=== PATIENT | female | born 1990 | race Caucasian/White ===

== ENCOUNTER 2023-02-05 08:26 | Outpatient (CLI) | payer BC, SELFPAY | END 2023-02-05 08:27 | disposition home or self-care (01) | PROVIDERS: PCP Naturopath; Visit Provider Naturopath | DX: I10 Essential (primary) hypertension (principal); R79.82 Elevated C-reactive protein (CRP); N94.819 Vulvodynia, unspecified | CPT/HCPCS: 36415; 99001 ==

== ENCOUNTER 2024-03-25 09:30 | Outpatient (RCR) | payer BC, SELFPAY | END 2024-07-21 16:21 | disposition home or self-care (01) | PROVIDERS: Visit Provider Advanced Practice Midwife | DX: R10.2 Pelvic and perineal pain (principal); N39.41 Urge incontinence; N94.2 Vaginismus; Z51.89 Encounter for other specified aftercare | CPT/HCPCS: 97110; 97112; 97140; 97162; 97164; 97530; 97535 ==

== ENCOUNTER 2025-04-14 16:16 | Inpatient (IN) | payer BC, SELFPAY ==
--- OUTSIDE RECORDS SUMMARY | 2025-03-02 13:30 | XMS_ITS | Encounter Summary ---
Author Organization [facility] Address [address] [place] [address] Care Team Providers Care Auriculotherapist Name Role Phone Emilia Schofield APRN, CNP Primary Care Provider + Reason for Visit * Reason Comments Routine Visit Encounter Details Date Type Department Care Team ([facility] st Contact Info) Description 03/02/2025 1:30 PM CDT Routine [facility]-FOOTWEAR MACHINERY INSTRUCTOR [address] [phone] [place] [address] [phone] Routine Visit Social History Tobacco Use Types Packs/Day Years Used Date Smoking Tobacco: Never Smokeless Tobacco: Never Alcohol Use Standard Drinks/Week Comments Not Currently 0 (1 standard drink = 0.6 oz pur e alcohol) PHQ-2 Answer Date Recorded PHQ-2 Score 0 01/12/2020 Depression Answer Date Recor ded Last EPDS Total Score 3 02/02/2025 Last EPDS Self Harm Result Not on file 02/02 Estimated Date of Delivery Comme nts Yes 04/15/2025 Based on last me nstrual period of 07/09/2024 (Exact Date) Sex and Gender Information Value Date Recorded Sex Assigned at Not on file Legal Sex Female 12:12 PM SKEWER UP Gender Identity Not on file Sexual Orientation Not on file 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 Thank you for choosing us for your care. We recommend you review the following information in Your Guide to : Testing - Group B Strep Testing We recommend you review the following information in Preparing for Childbirth: Pain and Comfort Labor and Medical Interventions - Pain Mediations If you are interested in learning more about circumcision, click on the following link: Circumcision - Making the Decision: https://DreamFunded/70445.pdf Vaccinations help keep your baby healthy and protects everyone around them from preventable diseases. To learn more about vaccines and how you can help your child develop strong immunities, click on the links below: Why vaccines (and vaccine schedules) are important for kids [facility] Blog Questions Parents Ask About Vaccinations for Babies (immunize.org) Studies show education received during can increase overall feeding success. If is part of your plan, you can talk to a certified career consultant through our partners at [employer] (see QR code below). You can also take a class offered through your community. Have you selected a health care provider for your baby? Find Pediatric care near you by scanning the QR code below to see locations. Our Clinician Finder Team is also available to assist you by calling [phone]. Or click on this link: Our pediatricians [facility] & Emy Vincent Drinking any amount of alcohol during is not safe. Watch this short video by Proof [place]: Proof: Some Think Drinking During is OK. It???s Not. - Ximena video Marijuana use is never recommended while or . Learn why here: https://DreamFunded/05326.pdf is a time of transition. If you feel overwhelmed, anxious or depressed, see the followingresources: Emotional Distress During and After : https://DreamFunded/40537.pdf Resources & Support for New & Expecting Parents: https://DreamFunded/59723.pdf The 3 books provided throughout are also available digitally. Here are links to each book: Your Guide to : https://userBitGym/EqkxfaGzanvjir-Vsfi-Rtqoy-ur-m-Hynbzlr- Preparing for Childbirth: https://userBitGym/MshcdwRzjgrord-Ddz-Wbzr-of-Motherhood Taking Care of You and Your : https://userBitGym/MsjwywVrunsjda-P-Xpl-Beginning [place] for our free sterling called ???myHealthyPregnancy?? powered by [employer]. The sterling offers many quick articles and videos on , labor, , , and newborncare. Find instructions here: Or click on this link: myHealthyPregnancy tracker sterling [facility] documented in this encounter Progress Notes * Luiza Chester MD - 03/02/2025 1:30 PM CDT [facility] OBSTETRICS & GYNECOLOGY RETURN OB VISIT SUBJECTIVE Dianne Mcintyre is a 34 y.o. at 33w5d presenting for follow up care. Striper Spray Gun not needed for this visit. INTERVAL UPDATES Doing well today! Feeling good movement. Denies contractions, vaginal bleeding, or leaking of fluid. PROBLEM LIST - Chronic Hypertension - Hepatitis B NONimmune OB History Para Term AB Living 1 0 0 0 0 0 SAB IAB Ectopic Multiple Live Births 0 0 0 0 0 # Outcome Date GA Lbr Georgi/2nd Weight Sex Type Anes PTL Lv 1 Current OBJECTIVE Vitals: 03/02/25 1333 BP: 127/79 Pulse: 80 PHYSICAL EXAM General: Healthy, alert, no distress. Abdomen: Gravid, nontender. See Flowsheet for FH and HR. ASSESSMENT & PLAN Dianne is a 34 y.o. at 33w5d by LMP c/w 8wk US (VIRAL 04/15/25) presenting for follow up care. #. Care: - OB labs reviewed > A+, Rubella immune, HIV neg, RPR neg, Hep B neg/NONimmune, Hep C neg > Glucola 104, Hgb 12.9, Plts 241, RPR neg > GBS at 36wks > Rh positive, Rhogam not indicated - Screening: NIPS low risk, msAFP low risk - Anatomy Ultrasound: L2 6/10 placenta posterior, normal anatomy (spine suboptimal) - Vaccines: [declined]COVID, [declined]Influenza, [02/02]Tdap, [03/02]RSV - Continue multivitamin - Continue Aspirin for preeclampsia prevention - Pre- BMI 20.8, recommend 25-35lbs of weight gain. TWG 43 lb 9.6 oz (19.8 kg) - Preferences > Mode of Delivery: anticipate VD > Feeding: , has pump already > Pediatrics: [facility] > Contraception: condoms and considering other options #. Chronic Hypertension: - Not currently on medications. BPs have been within goal thus far. - Baseline HELLP labs normal, P:C 0.07. - Has blood pressure cuff at home, reviewed how to check BP, warning signs, and when to call. - Growth ultrasounds > 01/23 EFW 1157g (27%), AC 23%, anatomy cleared > Next at 34wks, 03/06 - testing not indicated if continues to be well controlled without medication. - Delivery recommended at 39 weeks if normotensive in third trimester, 38 weeks if BP well controlled with medication, 37 weeks if difficult to control hypertension, unless indication for earlier delivery arises. #. Pelvic Pain: - Discussed supportive measures like Tylenol, heat/ice, warm baths, support belt - Reviewed physical therapy referral is an option if symptoms persist or get worse #. 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 - Pelvic Floor PT referral provided previously. #. Hepatitis B NONimmune: - S/p repeat vaccination. Dose #1 11/05, dose #2 01/05. #. Follow Up: - Return to clinic in 2 weeks - Next Visit: 03/[address] Luiz Chester MD Obstetrics & Gynecology 03/02/2025 1:48 PM documented in this encounter Plan of Treatment Upcoming Encounters Date Type Department Care Team (Late st Contact Info) Description 04/15/2025 1:00 PM CDT Appointment [facility]-FOOTWEAR MACHINERY INSTRUCTOR [address] [facility], [facility] [address] [place] [address] [place] [address] [phone] documented as of this encounter Visit Diagnoses Diagnosis High risk , antepartum- Primary Chronic hypertension affecting documented in this encounter Care Teams Auriculotherapist Relationship Specialty Start Date End Date Emilia Schofield, HULLER OPERATOR, TAPROOM ATTENDANT [address] [place] [phone] PCP - General Nurse Practitioner 07/10/17 documented as of this encounter
--- OUTSIDE RECORDS SUMMARY | 2025-03-06 11:15 | XMS_ITS | Encounter Summary ---
Author Organization [facility] Address [address] [place] [address] Care Team Providers Care Discotheque Dancer Name Role Phone Emilia Schofield APRN FISHER TRAWL LINE Primary Care Provider + Reason for Visit * Procedure/Equipment (Routine) - Incomplete Specialty Diagnoses / Procedures Referred By Mariaelena cooper Referred To Contact Diagnoses Chronic hypertension affecting Procedures [facility] OB Follow-Up Growth Brie Hart MD [address] [place] [address] Phone: tel: fax: Referral ID Status Reason Start Date Expiration Date V isits Requested Visits Authorized [id number] Incomplete 01/23/2025 04/24/2026 1 1 Encounter Details Date Type Department Care Team (Late st Contact Info) Description 03/06/2025 11:15 AM CDT Ancillary Procedure [facility] [address] [place] [address], [facility] [address] [place] [phone] Brie Hart MD [address] [place] [address] Chronic hypertension affecting Social History Tobacco Use Types Packs/Day Years [...] on file Legal Sex Female 12:12 PM TURRET PUNCH OPERATOR Gender Identity Not on file Sexual Orientation Not on file 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 Not on file Not on file documented as of this encounter Plan of Treatment Upcoming Encounters Date Type Department Care Team (Late st Contact Info) Description 04/15/2025 1:00 PM CDT Appointment [facility]-DRYING SUPERVISOR [address] [facility], [address] [place] [phone] [place] [address] [place] [address] documented as of this encounter Procedures Procedure Name Priority Date/Time Associated Diagnosis Comments [facility] US OB FOLLOW-UP GROWTH Routine 03/06/2025 11:48 AM CDT Chronic hypertension affecting documented in this encounter Results * [facility] US OB Follow-Up Growth (03/06/2025 11:48 AM CDT) Anatomical Region Laterality Modality Pelvis Ultrasound Study GA Study Date Study VIRAL Working VIRAL (Source) 32w4d 03/06/2025 04/27/2025 04/15/2025 (Last Menstrua l Period) Fetus 1 Measurements Value GA (days) GA by US Calc 228 days 228 FHR 130 bpm BPD 8.35 cm 236 OFD HC 29.9 cm 232 AC 29.18 cm 232 FL 6.28 cm 228 HL 5.48 cm CI 80.21 % FL/BPD 75.21 % FL/AC 21.52 % HC/AC 1.02 HrtC/TC Heart Circ Thoracic Circ UAR - PSV UAR - S/D Ratio UAR - RI UAR - PI MCA - PSV MCA - S/D Ratio MCA - PI CPR Lateral Ventricle .71 cm CER Cisterna Magna Max Vertical Pocket SRINIVASAN 12.16 cm SRINIVASAN Q1 5.99 cm SRINIVASAN Q2 2.5 cm SRINIVASAN Q3 0 cm SRINIVASAN Q4 3.67 cm Foot Tib Fib Radius Ulna Clav Scapula Mitral Valve Tricuspid Valve Pulmonary Valve Aortic Valve EFW: Hadlock 1984 (BPD, HC, AC, FL) 2100 g Impressions 03/06/2025 12:39 PM CDT S: Single intrauterine at 34w2d gestation. INDICATIONS: Low Risk NIPS (XX) Intermittently elevated blood pressure w/o HTN Dx (cHTN vs White Coat HTN) --Biometric measures indicate appropriate interval growth. The EFW is at the 15th percentile for gestational age. The AC is at the 23rd percentile for gestational age. --Amniotic fluid volume is normal, with an SRINIVASAN of 12.2 cm. --Limited anatomic assessment remains normal --No evidence of placenta previa. --An incidental BPP is reassuring with a score of 8 of 8. --Cephalic presentation. MFM Consult: BP in our clinic today was mildly elevated: 137/95, 124/94 and 128/94. Patient denies sx of preE. She has no edema on exam. She brings in a very complete log of her home BP's over the past few weeks, which range 110's to 120's / 80's. Although her diastolics have been slowly increasing to mid- to-high 80's over the past 2 wks, they have consistently remained < 90. Recommendations: -- I reviewed signs and symptoms of preE with Dianne and her . --I ordered preE labs and UPCR. -- I advised Dianne to continue to take her BP at home tid and to report if systolic is repeatedly > 140 or diastolic repeatedly > 90. If this is the case, suggested starting labetalol 100 mg bid, since the dx is more likely chronic HTN than preE in this setting (unless labs or UPCR are abnormal). -- If antihypertensive started, begin weekly to twice weekly testing, repeat growth US in 3 wks, and deliver at 38 wks (37 wks if superimposed preE or other concerns) -- If preE labs are normal and BP remains < 140/90, no need for testing or growth US. However, I suggest delivery in the 39th week in this setting due to increased concern for development of preE The US findings and above recommendations were discussed with Dianne and her . All their questions were answered. Thank you for allowing us to participate in the care of your patient. Total time spent in counseling patient, care coordination, review of chart, review of prior imaging studies, placing orders and documentation: 30 mins Amalia Izquierdo MD [facility] Narrative 03/06/2025 12:39 PM CDT Table formatting from the original result was not included. Images from the original result were not included. [facility] [address] [place] [address], [address] [place] [address] Dept Dept Patient Name: Dianne Mcintyre Referred By: Attending: MD Amalia Crawford MD Patient Title Camera Operator: Alannah Washington RDMS , Age: 208/10/1990, 34 y.o. GA Prior to Exam: 34w2d LMP: Patient's last menstrual period was 07/09/2024 (exact date). GA by Today's US: 32w4d Pregnancies: GA VIRAL: 34w2d Last Menstrual Period Pre- BMI: 20.80 VIRAL: 04/15/2025 Hx/Indications: Low Risk NIPS (XX) Neg Carrier Screening Elevated blood pressure without HTN Dx (cHTN vs White Coat HTN) Date of Exam: 03/06/2025 Evaluation Gestation Type escoto Cardiac Activity present Motion normal Presentation cephalic Amniotic Fluid normal Placenta Location posterior Placenta Appearance grossly normal BPP Breathing 2 Tone 2 Movement 2 Amniotic Fluid 2 Total Score 8 Measurement Value Rank GA FHR 130 bpm * BPD 8.35 cm 29% 33w5d HC 29.9 cm 3% 33w1d AC 29.18 cm 23% 33w1d FL 6.28 cm 7% 32w4d HL 5.48 cm 10% CI 80.21 % FL/BPD 75.21 % FL/AC 21.52 % HC/AC 1.02 Lateral Ventricle 0.71 cm SRINIVASAN 12.16 cm 5 - 50% SRINIVASAN Q1 5.99 cm SRINIVASAN Q2 2.5 cm SRINIVASAN Q3 0 cm SRINIVASAN Q4 3.67 cm Weight: 2,100 g (4 lb 10.1 oz), 15% Projected EFW at 39w:2,957g (6 lb 8.3 oz) Head Abdomen Cranium appears normal Stomach appears normal Midline Falx appears normal Heart Lateral Ventricle appears normal Heart Rhythm regular Cavum Septi Pellucidi visualized Situs normal 4 Chamber View appears normal LVOT/AO appears normal RVOT/PA appears normal Urinary Tract Right Kidney appears normal Left Kidney appears normal Bladder appears normal Maternal Evaluation Cervix Normal Uterus Normal Cervical Length Approach N/A Right Ovary Normal With Fundal Pressure (cm) N/A Left Ovary Normal Funneling N/A Right Adnexa Normal Cul-de-sac No fluid seen Left Adnexa Normal Impression us Brie Hart MD [facility] Final Result documented in this encounter Visit Diagnoses Diagnosis Chronic hypertension affecting documented in this encounter Care Teams Discotheque Dancer Relationship Specialty Start Date End Date Emilia Schofield, BANDING MACHINE OPERATOR, FISHER TRAWL LINE [address] [place] [address] PCP - General Nurse Practitioner 07/10/17 documented as of this encounter
--- OUTSIDE RECORDS SUMMARY | 2025-03-06 11:45 | XMS_ITS | Encounter Summary ---
Author Organization [facility] Address [address] [place] [address] Care Team Providers Care Master Glazier Name Role Phone Emilia Schofield APRN, RESTRIKE HAMMER OPERATOR Primary Care Provider + Encounter Details Date Type Department Care Team (Late st Contact Info) Description 03/06/2025 11:45 AM CDT Procedure Visit [facility] [address] [facility], [address] [place] [address] Amalia Izquierdo MD [address] [place] [address] Social History Tobacco Use Types Packs/Day Years [...] on file Legal Sex Female 12:12 PM GLASS INSERTER Gender Identity Not on file Sexual Orientation Not on file 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 IMPRESSIONS: Single intrauterine at 34w2d gestation. INDICATIONS: Low [...] score of 8 of 8. --Cephalic presentation. [facility] Consult: BP in our clinic today was mildly elevated: 137/95, 124/94 and 128/94. Patient denies sx of preE. She has no edema on exam. She brings in a very complete log of her home BP's over the past few weeks, which range 110's to 120's / 80's. Although her diastolics have been slowly increasing to mid- to- high 80's over the past 2 wks, they [...] is the case, suggested starting labetalol 100 mgbid, since the dx is more likely chronic [...] setting due to increased concern for development ofpreE The US findings and above recommendations were discussed with Dianne and her . All their questions were answered. Thank you for allowing us to participate in the care of your patient. Total time spent in counseling patient, care coordination, review of chart, review of prior imagingstudies, placing orders and documentation: 30 mins Amalia Izquierdo MD [facility] documented in this encounter Plan of Treatment Upcoming Encounters Date Type Department Care Team (Late st Contact Info) Description 04/15/2025 1:00 PM CDT Appointment [facility]-EVALUATION ADVISOR [address] [facility], [facility] [address] [place] [phone] [place] [address] [place] [address] documented as of this encounter Visit Diagnoses Diagnosis Chronic hypertension affecting - Primary documented in this encounter Care Teams Master Glazier Relationship Specialty Start Date End Date Emilia Schofield, MANUFACTURING WORKER, RESTRIKE HAMMER OPERATOR [address] [place] [phone] PCP - General Nurse Practitioner 07/10/17 documented as of this encounter
--- OUTSIDE RECORDS SUMMARY | 2025-03-06 13:30 | XMS_ITS | Encounter Summary ---
Author Organization [facility] Address [address] [place] [address] Care Team Providers Care Screen Printing Equipment Setter Name Role Phone Emilia Schofield APRN, CNP Primary Care Provider + Encounter Details Date Type Department Care Team (Late st Contact Info) Description 03/06/2025 1:30 PM CDT [facility] [address] [facility], [facility] [address] [place] [address] Chronic hypertension in Social History Tobacco Use Types Packs/Day Years [...] on file Legal Sex Female 12:12 PM ACADEMIC AFFAIRS COORDINATOR Gender Identity Not on file Sexual Orientation Not on file 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 Not on file Not on file documented as of this encounter Plan of Treatment Upcoming Encounters Date Type Department Care Team (Late st Contact Info) Description 04/15/2025 1:00 PM CDT Appointment [facility]-TREKKING GUIDE [address] [facility], [address] [place] [phone] [place] [address] [address] [place] [address] documented as of this encounter Procedures Procedure Name Priority Date/Time Associated Diagnosis Comments CREATININE / GFR Routine 03/06/2025 1:32 PM CDT Chronic hypertension in PLATELETS Routine 03/06/2025 1:32 PM CDT Chronic hypertension in TP/CREA RATIO, URINE Routine 03/06/2025 1:32 PM CDT Chronic hypertension in ALT (SGPT) Routine 03/06/2025 1:32 PM CDT Chronic hypertension in AST Routine 03/06/2025 1:32 PM CDT Chronic hypertension in documented in this encounter Results * TP/Crea Ratio, Urine (03/06/2025 1:32 PM CDT) TP/Creat Ratio, Urine Random 0.09 0.00 - 0.20 03/06/2025 9:10 PM T [facility] Total Protein, Urine, Random 4 0 - 14 mg/dL 03/06/2025 9:10 PM T [facility] Creatinine, Urine, Random 45 >20 mg/dL mg/dL 03/06/2025 9:10 PM [facility] Urine Non-blood Collection / Unknown 03/06/2025 1:32 PM CDT 03/06/2025 1:32 PM CDT [facility] - 03/06/2025 9:10 PM CDT Low urine creatinine values coupled with low urine protein values can artifactually increase the urine protein/creatinine results. Correlate results of ratio with creatinine results. us Amalia Izquierdo MD LAB_1 Final Resul t Performing Organization Address City/[facility] Co de Phone Number [facility] CLIA: [id number] [facility] [address] * Platelets (03/06/2025 1:32 PM CDT) Platelets 232 150 - 450 x10(9)/L 03/06/2025 5:49 PM CDT [facility] Blood Venipuncture / Unknown 03/06/2025 1:32 PM CDT 03/06/2025 1:32 PM CDT Amalia Izquierdo MD LAB_1 Final Resul t Performing Organization Address [facility] de Phone Number [facility] CLIA: [id number] [place] [address] * Creatinine / GFR (03/06/2025 1:32 PM CDT) Creatinine 0.59 0.55 - 1.02 mg/dL 03/06/2025 8:15 PM CDT [facility] GFR, Estimated >60 >60 mL/min/1.7 3m2 03/06/2025 8:15 PM CDT [facility] Blood Venipuncture / Unknown 03/06/2025 1:32 PM CDT 03/06/2025 1:32 PM CDT Amalia Izquierdo MD LAB_1 Final Resul t Performing Organization Address [facility] Co de Phone Number [facility] CLIA: [id number] [address] [place] [address] * ALT (SGPT) (03/06/2025 1:32 PM CDT) ALT (SGPT) 11 0 - 55 U/L 03/06/2025 8:15 PM CDT [facility] Blood Venipuncture / Unknown 03/06/2025 1:32 PM CDT 03/06/2025 1:32 PM CDT us Amalia Izquierdo MD LAB_1 Final Resul t Performing Organization Address City/[facility] Co de Phone Number [facility] CLIA: [id number] [address] [place] [address] * AST (03/06/2025 1:32 PM CDT) AST (SGOT) 19 16 - 46 U/L 03/06/2025 8:15 PM CDT [facility] Blood Venipuncture / Unknown 03/06/2025 1:32 PM CDT 03/06/2025 1:32 PM CDT us Amalia Izquierdo MD LAB_1 Final Resul t Performing Organization Address [facility] de Phone Number [facility] CLIA: [id number] [address] [place] [address] documented in this encounter Visit Diagnoses Diagnosis Chronic hypertension in Benign essential hypertension complicating , childbirth, and the puerperium, unspecified as to episode of care documented in this encounter Care Teams Screen Printing Equipment Setter Relationship Specialty Start Date End Date Emilia Schofield, PERCUSSION INSTRUMENT TUNER, LOSS PREVENTION RESEARCH ENGINEER [address] [place] [phone] PCP - General Nurse Practitioner 07/10/17 documented as of this encounter
--- OUTSIDE RECORDS SUMMARY | 2025-03-18 15:30 | XMS_ITS | Encounter Summary ---
Author Organization [facility] Address [address] [place] [address] Care Team Providers Care Wildlife And Game Protector Name Role Phone Emilia Schofield APRN, MATERNAL CHILD NURSE Primary Care Provider + Reason for Referral * Therapies (Routine) - New Request Specialty Diagnoses / Procedures Referred By Mariaelena cooper Referred To Contact Diagnoses High risk , [place] [address] [address] [address] Phone: tel: fax: Referral ID Status Reason Start Date Expiration Date V isits Requested Visits Authorized [id number] New Request 03/17/2025 03/17/2026 1 1 Scheduling Instructions Your clinician has recommended an appointment with Physical Therapy and Rehabilitation Services. You can quickly schedule your appointment by signing in to your online account at [email or web address] or through the text message you may have received. You can also make an appointment by calling [phone]. We suggest you call your health insurance company about your coverage and benefits for this appointment. Question Answer Appointment Urgency? Non-Urgent Requested Services Evaluate and treat Reason for Visit Ortho /Post- - 3-6 weeks after delivery May use saline for irrigation or cleansing Yes dexamethasone use Yes May check glucose per protocol (see policy link below) or if patient has symptoms? 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 Thank you for choosing us for your care. We recommend you review the following information in Preparing for Childbirth: Frequently Asked Questions About Labor and Pack your books in your labor bag and bring to the hospital at your time of delivery. Your care team may refer to helpful topics during your hospital stay. If you are interested in learning more about circumcision, click on the following link: Circumcision - Making the Decision: https://SIVI/59130.pdf Vitamin K Social media posts offer a range of opinions on giving vitamin K to newborns. It???s a fact that babies have very little vitamin K in their bodies at which puts them at risk for bleeding. Giving a vitamin K injection after has been the standard of care and [place] Academy [employer] Pediatrics(AAP) recommendation since 1961. One shot will help protect against vitamin K deficiency bleeding (VKDB) which can lead to serious internal bleeding, brain damage or even . Learn more about the importance of vitamin K to protect your baby. Vaccinations help keep your baby healthy and protects everyone around them from preventable diseases. To learn more about vaccines and how you can help your child develop strong immunities, click on the links below: Why vaccines (and vaccine schedules) are important for kids [employer] Blog Questions Parents Ask About Vaccinations for Babies (immunize.org) During your appointment today you received a referral to Physical Therapy (PT) for a visit. PT helps restore pelvic floor function and healing during your recovery. Learn more about what???s available to you here: Physical Therapy During and After RSV is a common viral infection that can be very serious for babies. Learn how you can protect yournewborn: https://SIVI/69146.pdf Have you selected a health care provider for your baby? Find Pediatric care near you by scanning the QR code below to see locations. Our Clinician Finder Team is also available to assist you by calling [phone]. Or click on this link: Our pediatricians Naveen & Simon Vincent Drinking any amount of alcohol during is not safe. Watch this short video by Proof [place]: Proof: Some Think Drinking During is OK. It???s Not. - Ximena video Marijuana use is never recommended while or . Learn why here: https://SIVI/81214.pdf is a time of transition. If you feel overwhelmed, anxious or depressed, see the followingresources: Emotional Distress During and After : https://SIVI/23485.pdf Resources & Support for New & Expecting Parents: https://SIVI/13920.pdf The 3 books provided throughout are also available digitally. Here are links to each book: Your Guide to : https://userPeople to Remember.Neuro[employer] Bioscience.TravelerCar/QprqntBjylgmds-Rtsi-Vnium-fl-z-Csxvnqu- Preparing for Childbirth: https://userPeople to Remember.Neuro[employer]ience.TravelerCar/QvgrvqKxlozdiz-Vhb-Ritr-of-Motherhood Taking Care of You and Your : https://userSentence Lab/NgqboyThxbwiay-Q-Qhb-Beginning We encourage you to register for our free sterling called ???myHealthyPregnancy?? powered by [employer]. You will find many topics and videos on , labor and , , and care. Find instructions here: Or click on this link: myHealthyPregnancy tracker sterling [employer] documented in this encounter Progress Notes * Vonnie Dee DO - 03/18/2025 3:30 PM CDT [facility] CC: Follow-up care S: Dianne Mcintyre is feeling well today. Her BP is running 110-120/80's. She denies loss of fluid, changes in vaginal discharge or vaginal bleeding. Reports good movement. She has been having no regular contractions. Denies headache, vision changes, chest pain, shortness of breath. No hematuria, dysuria or other. No constipation or diarrhea. 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 Bilateral temporomandibular joint pain 01/15/2018 O: Filed Vitals: 03/18/25 1530 BP: (!) 139/91 Pulse: 92 Weight: 173 lb (78.5 kg) Gen: alert, oriented, NAD See OB flowsheet. SVE: declined Bedside US confirms vertex position A/P: 34 y.o. at 36w0d by LMP presenting for follow-up care. Care: - OB labs reviewed: A, Rubella immune, Heb B Ag non-reactive, hep B non-immune, HIV negative, RPR negative - Genetics: NIPS and AFP low risk - Anatomy ultrasound: normal level 2 US after recheck - Rh positive, Rhogam not indicated - GCT 104 at 28 weeks along with hgb 12.9, RPR - 03/18/25 flu, Tdap 02/02 - declined Covid vaccine - RSV 03/02/25 - GBS today - Feed: breast, has pump - Contraception: condoms and considering other [facility] - continue taking vitamins #. Chronic Hypertension: - Not currently on medications. BP starting to increase at home (still normal) but mild elevation in clinic today again. Did review we may need t change plan to earlier than 39 weeks based on what her BP does in the next few weeks. Instructed to bring new BP cuff to clinic next week - Baseline HELLP labs normal, P:C 0.07. - Has blood pressure cuff at home, reviewed how to check BP, warning signs, and when to call. - Growth ultrasounds > 01/23 EFW 1157g (27%), AC 23%, anatomy cleared > 03/06 EFW 2100g (15%), AC 23%, projected EFW at 39w is 2957g - testing not indicated if continues to [...] NONimmune: - S/p repeat vaccination. Dose #1 5/14, dose #2 01/05. Follow-up in clinic early next week with BP cuff Vonnie Dee DO 03/18/2025 4:25 PM documented in this encounter Plan of Treatment Upcoming Encounters Date Type Department Care Team (Late st Contact Info) Description 04/15/2025 1:00 PM CDT Appointment [facility] BUSINESS BANKING OFFICER [address] [facility], [address] [place] [phone] [place] [address] [place] [address] Scheduled Referrals Name Type Priority Associated Diagnoses Orde r Schedule Physical Therapy - Referral Routine High risk , antepartum Ordered: 03/17/2025 documented as of this encounter Procedures Procedure Name Priority Date/Time Associated Diagnosis Comments GROUP B STREP SCREEN (OB PTS) Routine 03/18/2025 4:22 PM CDT High risk , antepartum OB CLINIC ULTRASOUND LIMITED Routine 03/18/2025 Evaluate position using ultrasound documented in this encounter Results * Group B Strep Screen (OB Pts) (03/18/2025 4:22 PM CDT) Group B Strep Screen No Group B Streptococcus Isolated 03/21/2025 8:17 AM CDT [facility] Swab (Source Required) PERINEAL SWAB / Unknown Non-blood Collection / Unknown 03/18/2025 4:22 PM CDT 03/18/2025 4:31 PM CDT us Vonnie Dee DO LAB_1 Final Resu lt [facility] CLIA: [id number] [address] [place] [address], [facility] * OB CLINIC ULTRASOUND LIMITED (03/18/2025) Anatomical Region Laterality Modality Other Narrative 03/18/2025 Bedside US confirms vertex position us Vonnie Dee DO PN CLINIC US ORDERABLES Fi nal Result documented in this encounter Visit Diagnoses Diagnosis High risk , antepartum- Primary Chronic hypertension affecting Vulvodynia Vulvodynia, unspecified Nonimmune to hepatitis B virus Encounter for immunization Need for other specified prophylactic vaccination against single bacterial disease Evaluate position using ultrasound Encounter for routine screening for malformation using ultrasonics documented in this encounter Care Teams Wildlife And Game Protector Relationship Specialty Start Date End Date Emilia Schofield, WIRE MILL ROVER, MATERNAL CHILD NURSE [address] [place] [phone] PCP - General Nurse Practitioner 07/10/17 documented as of this encounter
--- OUTSIDE RECORDS SUMMARY | 2025-03-25 09:00 | XMS_ITS | Encounter Summary ---
Author Organization [facility] Address [address] [place] [address] Care Team Providers Care Ceo Ziff Davis Name Role Phone Emilia Schofield APRN, LAURA Primary Care Provider + Reason for Visit * Reason Comments Routine Visit Encounter Details Date Type Department Care Team ([facility] st Contact Info) Description 03/25/2025 9:00 AM CDT Routine [facility]-GLOVE MACHINE OPERATOR [address] [phone] [place] [address] [phone] Routine Visit Social History Tobacco Use Types [...] on file 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 Gender Identity Not on file Sexual Orientation Not on file 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 Not on file Not on file documented as of this encounter Last Filed Vital Signs Vital Sign Reading Time Taken Comments Blood Pressure 122/90 03/25/2025 9:03 AM CDT Pulse 88 03/25/2025 9:03 AM CDT Temperature - - Respiratory Rate - - Oxygen Saturation - - Inhaled Oxygen Concentration - - Weight 79.7 kg (175 lb 9.6 oz) 03/25/2025 9:03 A M CDT Height - - Body Mass Index 29.22 09/09/2024 8:34 AM CDT documented in this encounter Patient Instructions * Patient Instructions* Caleb Dukes MD - 03/25/2025 9:00 AM CDT Images from the original note were [...] following link: Circumcision - Making the Decision: https://Trips n Salsa/20798.pdf Vitamin K Social media posts offer a range of opinions on giving vitamin K to newborns. It???s a fact that babies have very little vitamin K in their bodies at which puts them at risk for bleeding. Giving a vitamin K injection after has been the standard of care and [place] Academy of Pediatrics(AAP) recommendation since 1961. One [...] (and vaccine schedules) are important for kids [employer] Blog Questions Parents Ask About Vaccinations for [...] babies. Learn how you can protect yournewborn: https://Trips n Salsa/61213.pdf Have you selected a health care provider for your baby? Find Pediatric care near you by scanning the QR code below to see locations. Our Clinician Finder Team is also available to assist you by calling [phone]. Or click on this link: Our pediatricians N[facility]en & [facility] Vincent Drinking any amount of alcohol during is not safe. Watch this short video by Proof [place]: Proof: Some Think Drinking During is OK. It???s Not. - Ximena video Marijuana use is never recommended while or . Learn why here: https://Trips n Salsa/00905.pdf is a time of transition. If you feel overwhelmed, anxious or depressed, see the followingresources: Emotional Distress During and After : https://Trips n Salsa/50692.pdf Resources & Support for New & Expecting Parents: https://Trips n Salsa/04579.pdf The 3 books provided throughout are also available digitally. Here are links to each book: Your Guide to : https://user-Rubikloud.FlockOfBirds.TappnGo/TxbicoBhwkobvx-Uwmv-Tyzcp-si-f-Sndxvub- Preparing for Childbirth: https://user-Rubikloud.FlockOfBirds.bz/NihymcJwalqlxn-Yel-Kplw-of-Motherhood Taking Care of You and Your : https://user-Rubikloud.FlockOfBirds.TappnGo/SqaskgPwbwvvpe-L-Bug-Beginning We encourage you to register for our free sterling called ???myHealthyPregnancy?? powered by aDealio. You will find many topics and videos on , labor and , , and care. Find instructions here: Or click on this link: myHealthyPregnancy tracker sterling [employer]iz[employer] documented in this encounter Progress Notes * Caleb Dukes MD - 03/25/2025 9:00 AM CDT [facility] CC: Follow-up care S: Dianne Mcintyre is feeling well today. Her BP have been mostly at goal. She denies loss of fluid,changes in vaginal discharge or vaginal bleeding. Reports good movement. She has been having no regular contractions. Denies current headache, vision changes, chest pain, shortness of breath. No hematuria, dysuria or other. 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 Bilateral temporomandibular joint pain 01/15/2018 O: Filed Vitals: 03/25/25 0903 BP: (!) 122/90 Pulse: 88 Weight: 175 lb 9.6 oz (79.7 kg) Gen: alert, oriented, NAD ABD: gravid, soft, non-tender, no RUQ TTP See OB flowsheet. SVE: declined Neuro: No hyperflexia at patella. Bedside US at 36 wks GA: vertex A/P: 34 y.o. at 37w0d by LMP presenting for follow-up care. Care: [...] Covid vaccine - RSV 03/02/25 - GBS neg - Feed: breast, has pump - Contraception: condoms and considering other options -PEDS: [facility] - continue taking vitamins #. Chronic Hypertension: - No meds, couple of mild range BP's at home, astx. Discussed can start BP med now or wait and if continues to trend with elevated BP then can start meds with a message to office. Pt favors this overstarting now. Discussed proc vs labetalol. Pt has Hx of PAPPAS and would prefer labetalol if medication. Discussed if need to start BP med, then would recommend IOL at 38 wks GA, if not then 39 wks GA. - Baseline HELLP labs normal, P:C 0.07. [...] Tylenol, heat/ice, warm baths, support belt - Pelvic Floor PT: seeing therapist, going well. #. 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 - Pelvic Floor PT: seeing therapist, going well. #. Hepatitis B NONimmune: - S/p repeat vaccination. Dose #1 11/05, dose #2 01/05. Follow-up: As above if continued mild range BP this week or over the weekend. If mild range continued pt would prefer PO labetalol to procardia, would plan on 200mg q8hrs PO. ADDENDUM: Over weekend, pt presented to L&D with continue mild range BP's. She was Rx PO labetalol 200mg PO q8hrs. NST reassuring. Pt recommended IOL at 38 weeks GA. She has upcoming appointment on 03/31/25. FYI message sent to partner. documented in this encounter Plan of Treatment Upcoming Encounters Date Type Department Care Team (Late st Contact Info) Description 04/15/2025 1:00 PM CDT Appointment [facility]-GLOVE MACHINE OPERATOR [address] [facility], [address] [place] [phone] [place] [address] [address] [place] [address] documented as of this encounter Visit Diagnoses Diagnosis 37 weeks gestation of - Primary state, incidental Chronic hypertension affecting Vulvodynia Vulvodynia, unspecified documented in this encounter Care Teams Ceo Ziff Davis Relationship Specialty Start Date End Date Emilia Schofield, FANCY STITCHER, CHECK EXAMINER [address] [place] [phone] PCP - General Nurse Practitioner 07/10/17 documented as of this encounter
--- OUTSIDE RECORDS SUMMARY | 2025-03-27 16:29 | XMS_ITS | Encounter Summary ---
Author Organization [facility] Address [address] [place] [id number] Care Team Providers Care Powerhouse Operator Name Role Phone Unavailable Primary Care Provider Unavailabl e Reason for Visit * Reason Comments Rule Out Pre-eclampsia Encounter Details Date Type Department Care Team (Latest Contact Info) Description 03/27/2025 4:29 PM CDT - 03/27/2025 5:49 PM CDT Hospital Encounter [facility] [address] [place] [phone] Caleb Dukes MD [facility] [address] [place] [address] Chronic hypertension affecting (Primary Dx) Discharge Disposition: Home or Self Care Social History Tobacco Use Types Packs/Day Years Used Date Smoking Tobacco: Never Assessed Comments Yes Sex and Gender Information Value Date Recorded Sex Assigned at Not on file Legal Sex Female 4:28 PM CDT Gender Identity Not on file Sexual Orientation Not on file documented as of this encounter Last Filed Vital Signs Vital Sign Reading Time Taken Comments Blood Pressure 118/83 03/27/2025 5:42 PM CDT Pulse - - Temperature 36.6 C (97.8 F) 03/27/2025 4:40 PM CDT Respiratory Rate 16 03/27/2025 4:40 PM CDT Oxygen Saturation - - Inhaled Oxygen Concentration - - Weight - - Height - - Body Mass Index - - documented in this encounter Discharge Instructions * Discharge Instructions* Stacie Denney RN - 03/27/2025 5:43 PM CDT Learning About When to Call Your Doctor During (After 20 Weeks) Overview It's common to have concerns about what might be a problem when you're . Most pregnancies don't have any serious problems. But it's still important to know when to call your doctor if you have certain symptoms or signs of labor. These are general suggestions. Your doctor may give you some more information about when to call. When to call your doctor (after 20 weeks) Call 911 anytime you think you may need emergency care. For example, call if: You have severe vaginal bleeding. You have soaked through one or more pads in an hour, and the bleeding is not slowing down. You have sudden, severe pain in your belly that does not go away. You have chest pain, are short of breath, or cough up blood. You passed out (lost consciousness). You have a seizure. You see or feel the umbilical cord. You think you are about to deliver your baby and can't make it safely to the hospital or birthing center. Call your doctor now or seek immediate medical care if: You have vaginal bleeding. You have belly pain. You have a fever. You are dizzy or lightheaded, or you feel like you may faint. You have signs of a blood clot in your leg (called a deep vein thrombosis), such as: Pain in the calf, back of the knee, thigh, or groin. Swelling in your leg or groin. A color change on the leg or groin. The skin may be reddish or purplish. You have symptoms of preeclampsia, such as: Sudden swelling of your face, hands, or feet. New vision problems (such as dimness, blurring, or seeing spots). A severe headache that will not go away. You have a sudden release or slow trickle of fluid from your vagina. This may mean your water has broken. You've been having regular contractions for an hour at less than 37 weeks. This means that you've had at least 6 contractions within 1 hour, even after you change your position and drink fluids. You notice that your baby has stopped moving or is moving less than normal. You have signs of heart failure, such as: New or increased shortness of breath. New or worse swelling in your legs, ankles, or feet. Sudden weight gain, such as more than 2 to 3 pounds in a day or 5 pounds in a week. Feeling so tired or weak that you cannot do your usual activities. You have symptoms of a urinary tract infection. These may include: Pain or burning when you urinate. A frequent need to urinate without being able to pass much urine. Pain in your low back (below the rib cage and above the waist). Blood in your urine. Watch closely for changes in your health, and be sure to contact your doctor if: You have vaginal discharge that smells bad. You feel sad, anxious, or hopeless for more than a few days. You have skin changes, such as a rash, itching, or a yellow color to your skin. You have other concerns about your . If you have labor signs at 37 weeks or more If you have signs of labor at 37 weeks or more, your doctor may tell you to call when your labor becomes more active. During active labor: Contractions happen more often and at regular intervals (about every 3 to 5 minutes). Contractions last longer (about 60 seconds or more). Contractions get stronger and are hard to talk through. Follow-up care is a perdue part of your treatment and safety. Be sure to make and go to all appointments, and call your doctor if you are having problems. It's also a good idea to know your test resultsand keep a list of the medicines you take. Where can you learn more? Go to https://www.[employer].net/patiented Enter N531 in the search box to learn more about Learning About When to Call Your Doctor During (After 20 Weeks). Current as of: January 06, 2025 Content Version: 14.6 ?? 9900-1529 [employer]. Care instructions adapted under license by your healthcare professional. If you have questions about a medical condition or this instruction, always ask your healthcare professional. [employer] disclaims any warranty or liability for your use of this information. documented in this encounter Medications at Time of Discharge acetaminophen (TYLENOL) 325 MG tabletIndications: Single liveborn delivered vaginally Take 2 tablets (650 mg) by mouth every 6 hours as needed for mild pain. 60 tablet 04/08/2025 ibuprofen (ADVIL/MOTRIN) 600 MG tabletIndications: Single liveborn infant delivered vaginally Take 1 tablet (600 mg) by mouth every 6 hours as needed for moderate pain. 30 tablet 04/08/2025 labetalol (NORMODYNE) 200 MG tabletIndications: Hypertension Take 1 tablet (200 mg) by mouth 3 times daily. 120 tablet 04/10/2025 Vit-Fe Fumarate-FA ( MULTIVITAMIN W/IRON) 27-0.8 MG tablet Take 1 tablet by mouth daily. SENNA-docusate sodium (SENNA S) 8.6-50 MG tabletIndications: Single liveborn delivered vaginally Take 1 tablet by mouth at bedtime. 30 tablet 04/08/2025 aspirin (ASA) 81 MG chewable tablet Take 81 mg by mouth daily. doxylamine (UNISOM) 25 MG TABS tablet Take 25 mg by mouth at bedtime. labetalol (NORMODYNE) 200 MG tabletIndications: Hypertension Take 200 mg by mouth 3 times daily. documented as of this encounter Miscellaneous Notes * Plan of Care - Stacie Denney RN - 03/27/2025 5:48 PM CDT Labs WNL. BP's stable. Patient given first dose of labetalol, discharge instructions, and rx sent to home pharmacy. Patient discharged ambulatory at 1750. * Plan of Care - Stacie Denney RN - 03/27/2025 5:[address] Dukes, plan for r/o pre-e labs, new rx for labetalol for chronic hypertension, NST. And ifstill stable patient may discharge to home. * Plan of Care - Stacie Denney RN - 03/27/2025 4:50 PM CDT Data: Patient presented to [facility]: 03/27/2025 4:29 PM. Reason for maternal/ assessment is elevated blood pressures. Patient reports elevated blood pressures BID using home cuff and also in clinic, but now her BP's have been creeping up into the 90's. Patient does also report a dull headache. Patient is a . record reviewed. has been complicated by potential chronic hypertension. Gestational Age Unknown. VSS. movement active. Patient denies uterine contractions, leaking of vaginal fluid/rupture of membranes, vaginal bleeding, abdominal pain, pelvic pressure, nausea, vomiting, visual disturbances, epigastric or URQ pain, significant edema. Support person, Johnnie, is present. Action: Verbal consent for EFM. Triage assessment completed. Urine specimen collected and sent. Bill of rights reviewed. Response: Patient verbalized agreement with plan. Will contact Dr Caleb Dukes with update and for further orders. documented in this encounter Plan of Treatment Upcoming Encounters Date Type Department Care Team (Latest Contact Info) Description 04/15/2025 Medical Correspondence [facility] Information Management [address] [place] [phone] Scan, Non-Provider PATIENT COMMUNICATION RECORD documented as of this encounter Procedures Procedure Name Priority Date/Time Associated Diagnosis Comments CBC WITH PLATELETS (LIMITED OCCURRENCES) STAT 03/27/2025 4:55 PM CDT COMPREHENSIVE METABOLIC PANEL (LIMITED OCCURRENCES) STAT 03/27/2025 4:55 PM CDT PROTEIN AND CREATININE WITH RATIO RANDOM URINE STAT 03/27/2025 4:47 PM CDT NON-STRESS TEST - HIM SCAN 03/27/2025 12:00 AM CDT documented in this encounter Results * (ABNORMAL) Comprehensive Metabolic Panel (Limited Occurrences) (03/27/2025 4:55 PM CDT) Sodium 135 135 - 145 mmol/L 03/27/2025 5:31 PM CDT LABORATORY Potassium 3.8 3.4 - 5.3 mmol/L 03/27/2025 5:31 PM CDT LABORATORY Carbon Dioxide (CO2) 20(L) 22 - 29 mmol/L 03/27/2025 5:31 PM CDT [facility] Anion Gap 12 7 - 15 mmol/L 03/27/2025 5:31 PM CDT [facility] Urea Nitrogen 11.6 6.0 - 20.0 mg/dL 03/27/2025 5:31 PM CDT [facility] Creatinine 0.64 0.51 - 0.95 mg/dL 03/27/2025 5:31 PM CDT [facility] GFR Estimate >90 >60 mL/min/1.7 3m2 03/27/2025 5:31 PM CDT [facility] Comment:eGFR calculated usin 2020 CKD-EPI equation. Calcium 8.9 8.8 - 10.4 mg/dL 03/27/2025 5:31 PM CDT LABORATORY Chloride 103 98 - 107 mmol/L 03/27/2025 5:31 PM CDT LABORATORY Glucose 88 70 - 99 mg/dL 03/27/2025 5:31 PM CDT LABORATORY Alkaline Phosphatase 94 40 - 150 U/L 03/27/2025 5:31 PM CDT LABORATORY AST 12 0 - 45 U/L 03/27/2025 5:31 PM CDT LABORATORY ALT 13 0 - 50 U/L 03/27/2025 5:31 PM CDT LABORATORY Protein Total 6.4 6.4 - 8.3 g/dL 03/27/2025 5:31 PM CDT LABORATORY Albumin 3.4(L) 3.5 - 5.2 g/dL 03/27/2025 5:31 PM CDT LABORATORY Bilirubin Total <0.2 <=1.2 mg/dL 03/27/2025 5:31 PM CDT LABORATORY Blood STRUCTURE OF LEFT UPPER LIMB / Unknown Venipuncture / Unknown 03/27/2025 4:55 PM CDT 03/27/2025 5:07 PM CDT us Caleb Dukes MD LAB - BLOOD ORDERABLES Final Res ult LABORATORY [facility] [address] Lab (1st floor, no room number) [place] [address], [place] * (ABNORMAL) CBC with Platelets (Limited Occurrences) (03/27/2025 4:55 PM CDT) WBC Count 11.54(H) 4.00 - 11.00 10e3/uL 03/27/2025 5:10 PM CDT [facility] RBC Count 3.76(L) 3.80 - 5.20 10e6/uL 03/27/2025 5:10 PM CDT [facility] Hemoglobin 11.1(L) 11.7 - 15.7 g/dL 03/27/2025 5:10 PM CDT [facility] Hematocrit 32.6(L) 35.0 - 47.0 % 03/27/2025 5:10 PM CDT [facility] MCV 86.7 78.0 - 100.0 fL 03/27/2025 5:10 PM CDT [facility] MCH 29.5 26.5 - 33.0 pg 03/27/2025 5:10 PM CDT [facility] MCHC 34.0 31.5 - 36.5 g/dL 03/27/2025 5:10 PM CDT [facility] RDW 13.5 10.0 - 15.0 % 03/27/2025 5:10 PM CDT [facility] Platelet Count 205 150 - 450 10e3/uL 03/27/2025 5:10 PM CDT [facility] Blood STRUCTURE OF LEFT UPPER LIMB / Unknown Venipuncture / Unknown 03/27/2025 4:55 PM CDT 03/27/2025 5:07 PM CDT us Caleb Dukes MD LAB - BLOOD ORDERABLES Final Res ult LABORATORY [facility] [address] Lab (1st floor, no room number) [place] [address], [facility] * Protein and Creatinine with Ratio Random Urine (03/27/2025 4:47 PM CDT) Total Protein Urine mg/dL <6.0 mg/dL 03/27/2025 5:35 PM CDT [facility] Comment:The reference ranges have not been established in urine protein. The results should be integrated into the clinical context for interpretation. Total Protein Urine mg/mg Creat 03/27/2025 5:35 PM CDT [facility] Comment:Unable to calculate, urine creatinine or protein is outside the detectable limits. Creatinine Urine mg/dL 29.4 mg/dL 03/27/2025 5:35 PM CDT [facility] Comment:The reference ranges have not been established in urine creatinine. The results should be integrated into the clinical context for interpretation. Urine URINE SPECIMEN OBTAINED BY CLEAN CATCH PROCEDURE / Unknown Non-blood Collection / Unknown 03/27/2025 4:47 PM CDT 03/27/2025 4:52 PM CDT Caleb Dukes MD LAB - URINE ORDERABLES Final Res ult LABORATORY [facility] [address] Lab (1st floor, no room number) [place] [address], [facility] * Non-Stress Test - HIM Scan (03/27/2025 12:00 AM CDT) 03/27/2025 Provider Outside PROCEDURES Final Result documented in this encounter Visit Diagnoses Diagnosis Indication for care in labor or delivery- Primary Unspecified indication for care or intervention related to labor and delivery, unspecified as to episode of care Chronic hypertension affecting documented in this encounter Admitting Diagnoses Diagnosis Indication for care in labor or delivery Unspecified indication for care or intervention related to labor and delivery, unspecified as to episode of care documented in this encounter Administered Medications Inactive Administered Medications - up to 3 most recent administrations Medication Order MAR Action Action Date Dose Rate Site labetalol (NORMODYNE) tablet 200 mg 200 mg, Oral, ONCE, On Sun03/27/25 at 1730, For 1 dose $Given 03/27/2025 5:45 PM CDT 200 mg documented in this encounter Active and Recently Administered Medications Times are shown in CDT. Scheduled Medication Order 03/25/2025 03/26/2025 03/27/2025 labetalol (NORMODYNE) tablet 200 mg (COMPLETED) 200 mg, Oral, ONCE, On Sun03/27/25 at 1730, For 1 dose 1745 ($Given - Provi jim: Stacie Denney RN) documented in this encounter
--- OUTSIDE RECORDS SUMMARY | 2025-03-31 11:30 | XMS_ITS | Encounter Summary ---
Author Organization [facility] Address [address] [place] [address] Care Team Providers Care Patient Financial Representative Name Role Phone Emilia Schofield APRN, CNP Primary Care Provider + Reason for Visit * Reason Comments Routine Visit Encounter Details Date Type Department Care Team ([facility] st Contact Info) Description 03/31/2025 11:30 AM CDT Routine [facility] [address] [phone] [place] [address] [address] Routine Visit Social History Tobacco Use [...] on file Legal Sex Female 12:12 PM PROJECT ADMIN Gender Identity Not on file Sexual Orientation Not on file 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 at 37w6d wga who presents for routine visit with . She denies any LOF, VB, or contractions. She has been feeling movement. She was seen on L&D on 03/27 for elevated Bps (DBP in 90s). She was sent home after normal workup and monitoring; she was started on Labetalol 200mg TID. She has been taking this med as prescribedand is tolerating well. Bps at home have been 116-120s/70-80s. She denies headache, vision changes, chest pain, shortness of breath, abdominal pain, nausea, vomiting, or increased swelling. Current Medications Table[1] No Known Allergies REVIEW OF SYSTEMS : All other systems are negative. OBJECTIVE : O: See ob flowsheet for BP, FH, weight, FHR General appearance: healthy, alert, in no distress Abdomen: gravid, soft, non-tender without masses or organomegaly SVE: closed/50/-3, cephalic ASSESSMENT/PLAN: 34 y.o. at 37w6d wga Care: - OB labs reviewed: A, Rubella immune, Heb B Ag non-reactive, hep B non-immune (s/p repeat vaccines), HIV negative, RPR negative - Genetics: NIPS and AFP low risk - Anatomy ultrasound: normal level 2 US after recheck - Rh positive, Rhogam not indicated - GCT 104 at 28 weeks along with hgb 12.9, RPR - 9/24/25 flu, Tdap 02/02 - declined Covid vaccine - RSV 03/02/25 - GBS neg - Feed: breast, has pump - Contraception: condoms and considering other options - PEDS: [facility] - Continue taking vitamins - RTO for BP check #. Chronic Hypertension - Labetalol 200mg BID started on 03/27. - HELLP labs normal on 03/27 - Growth ultrasounds > 01/23 EFW 1157g (27%), AC 23%, anatomy cleared > 03/06 EFW 2100g (15%), AC 23%, projected EFW at 39w is 2957g - Discussed recommendations and rationale for IOL at 38+0. She is amenable, but would like to wait a few more days. CR/IOL scheduled for 04/05 and 04/06. #. Pelvic Pain #. Vulvodynia - Cont Tylenol, heat/ice, warm baths, support belt - Stable with topical compounded gabapentin and lidocaine. - Pelvic Floor PT [1] Current Outpatient Medications Medication Sig Note Dispense Refill aspirin EC 81 MG enteric coated tablet Take 1 Tablet (81 mg) by mouth daily. Doxylamine Succinate, Sleep, (UNISOM OR) gabapentin 8% lidocaine 4% topical gel Apply 1 Application topically two times daily as needed for Pain. Apply 1 pump 30 g 2 labetalol (TRANDATE) 200 MG tablet Take 1 Tablet (200 mg) by mouth three times a day. 270 Tablet 1 magnesium oxide (AKA MAG-OX) 200 MG tablet daily with meal. vitamin-ferrous fumarate-folic acid (PRENATALPLUS) 27-1 MG tablet Take 1 Tablet by mouth daily. 09/09/2024: Cap Pyridoxine HCl (VITAMIN B-6 OR) No current facility-administered medications for this visit. documented in this encounter Plan of Treatment Upcoming Encounters Date Type Department Care Team (Late st Contact Info) Description 04/15/2025 1:00 PM CDT Appointment [facility] [address] [facility], [address] [place] [phone] [place] [address] [address] [place] [address] documented as of this encounter Visit Diagnoses Diagnosis High risk , antepartum- Primary Chronic hypertension affecting Vulvodynia Vulvodynia, unspecified Nonimmune to hepatitis B virus documented in this encounter Care Teams Patient Financial Representative Relationship Specialty Start Date End Date Emilia Schofield, CANDACE, LAURA [address] [place] [phone] PCP - General Nurse Practitioner 07/10/17 documented as of this encounter
--- OUTSIDE RECORDS SUMMARY | 2025-04-05 19:24 | XMS_ITS | Encounter Summary ---
Author Organization [facility] Address [address] [place] [id number] Care Team Providers Care Hoop Machine Operator Name Role Phone No Ref-Primary, Physician Primary Care Provider Reason for Referral * Home Health Therapies & Aides (Routine: Next available opening) Specialty Diagnoses / Procedures Referred By Mariaelena cooper Referred To Contact Diagnoses Hypertension affecting in third trimester [facility] [address] [place] [address] Phone: tel: fax: Referral ID Status Reason Start Date Expiration Date Visits Re quested Visits Authorized Question Answer Please see patient within 72 hours of discharge Reason for Referral Blood Pressure Clinic Name and Callback Information for Results/Concerns Camilla Luciana [facility] Comments If your home visit was not scheduled during your hospital stay, you should receive a call from [facility] within 24 hours after discharge to schedule your ordered home visit. If you have not heard by then, please call [phone]. Reason for Visit * Reason Comments Induction Of Labor * Auth/Cert (Routine) Specialty Diagnoses / Procedures Referred By Contmarisol t Referred To Contact costuming supervisor Diagnoses Indication for care in labor or delivery Ximena Ott MD [facility] [address] [place] [phone] Phone: tel: fax: [facility] [address] [place] [address] Phone: tel: fax: Referral ID Status Reason Start Date Expiration Date Visits Re quested Visits Authorized [id number] 1 1 Encounter Details Date Type Department Care Team (Latest Contact Info) Description 04/05/2025 7:24 PM CDT - 04/10/2025 12:29 PM CDT Hospital Encounter [facility] [address] [place] [phone] Ximena Ott MD [facility] [address] [place] [phone] Vonnie Dee DO Aurioles Garibay, Alma, MD [facility] [address] [place] [address] Rosibel Cantu MD [facility] [id number] [place], [place] [phone] Lactating mother (Primary Dx); Single liveborn delivered vaginally; Hypertension affecting in third trimester; Chronic hypertension affecting Discharge Disposition: Home or Self Care Social History Tobacco Use Types Packs/Day Years Used Date Smoking Tobacco: Never Smokeless Tobacco: Never Tobacco Cessation:Counseling Given: Not Answered Alcohol Use Standard Drinks/Week Comments Not Currently 0 (1 standard drink = 0.6 oz pur e alcohol) [place] Depression Scale Answer Date Recorded [place] Depression Scale Total 5 04/10/2025 The thought of harming myself has occurred to me . Never 04/10/2025 Food Insecurity Answer Date Recorded Within the past 12 months, d id you worry that your food would run out before you got money to buy more? No 04/05/2025 Within the past 12 months, d id the food you bought just not last and you didn t have money to get more? No 04/05/2025 Housing Stability Answer Date Recorded Do you have housing? (Izabel henriquez is defined as stable permanent housing and does not include staying outside in a car, in a tent, in an abandoned building, in an overnight fdc, or couch-surfing.) Yes 04/05/2025 Are you worried about losing your housing? No 04/05/2025 Financial Resource Strain Answer Date R ecorded Within the past 12 months, h ave you or your family members you live with been unable to get utilities (heat, electricity) when it was really needed? No 04/05/2025 Transportation Needs Answer Date Record ed Within the past 12 months, h as lack of transportation kept you from medical appointments, getting your medicines, non-medical meetings or appointments, work, or from getting things that you need? No 04/05/2025 Interpersonal Safety Answer Date Record ed Do you feel physically and e motionally safe where you currently live? Yes 04/05/2025 Within the past 12 months, h ave you been hit, slapped, kicked or otherwise physically hurt by someone? No 04/05/2025 Within the past 12 months, h ave you been humiliated or emotionally abused in other ways by your partner or ex-partner? No 04/05/2025 Comments No Sex and Gender Information Value Date Recorded Sex Assigned at Not on file Legal Sex Female 4:28 PM CDT Gender Identity Not on file Sexual Orientation Not on file documented as of this encounter Last Filed Vital Signs Vital Sign Reading Time Taken Comments Blood Pressure 154/91 04/10/2025 10:51 AM CDT Pulse 81 04/10/2025 10:51 AM CDT Temperature 36.7 C (98 F) 04/10/2025 10:51 AM CDT Respiratory Rate 18 04/10/2025 10:51 AM CDT Oxygen Saturation 97% 04/08/2025 12:30 PM CDT Inhaled Oxygen Concentration - - Weight 78.2 kg (172 lb 6.4 oz) 04/10/2025 12:16 PM CDT Height 162.6 cm (5' 4) 04/05/2025 7:44 PM CDT Body Mass Index 29.59 04/05/2025 7:44 PM CDT documented in this encounter Discharge Summaries * Sintia Gaona MD - 04/10/2025 8:46 AM CDT [facility] Discharge Summary Dianne Mcintyre Date of : 1990 Primary OB: Simon RAE Date of Admission: 04/05/2025 Date of Discharge: 04/10/2025 Admitting Physician: Ximena Ott MD Discharge Physician: Jimenez PATEL Admission Diagnoses - IUP at 38+4wga - cHTN - Vulvodynia - Pelvic pain - Hepatitis B nonimmune - Iron deficiency anemia Discharge Diagnoses - Same, now delivered Procedures on 04/08/25 at 39w0d Epidural Medications Prior to Admission Medications Prior to Admission Medication Sig Dispense Refill Last Dose/Taking labetalol (NORMODYNE) 200 MG tablet Take 200 mg by mouth 3 times daily. 04/05/2025 Evening aspirin (ASA) 81 MG chewable tablet Take 81 mg by mouth daily. doxylamine (UNISOM) 25 MG TABS tablet Take 25 mg by mouth at bedtime. Vit-Fe Fumarate-FA ( MULTIVITAMIN W/IRON) 27-0.8 MG tablet Take 1 tablet by mouth daily. Discharge Medications Current Discharge Medication List CONTINUE these medications which have NOT CHANGED Details labetalol (NORMODYNE) 200 MG tablet Take 200 mg by mouth 3 times daily. aspirin (ASA) 81 MG chewable tablet Take 81 mg by mouth daily. doxylamine (UNISOM) 25 MG TABS tablet Take 25 mg by mouth at bedtime. Vit-Fe Fumarate-FA ( MULTIVITAMIN W/IRON) 27-0.8 MG tablet Take 1 tablet by mouth daily. Brief Admission History From the admit note of Dr. Ott: Ms. Mcintyre is here for cervical ripening, due to chtn in . She has noticed good movement. No headaches, visual changes, RUQ pain, or swelling. Normotensive on admission Estimated weight= 3000gm Care: - OB labs reviewed: A, Rubella [...] condoms and considering other options - [facility] - continue taking vitamins #. Chronic Hypertension: - Started labetalol 200mg TID at 37 weeks - Baseline HELLP labs normal, P:C 0.07. - Has blood pressure cuff at home. - Growth ultrasounds > 01/23 EFW 1157g (27%), AC 23%, anatomy cleared > 03/06 EFW 2100g (15%), AC 23%, projected EFW at 39w is 2957g #. Pelvic Pain: - Discussed supportive measures like Tylenol, heat/ice, warm baths, support belt - Pelvic Floor PT: seeing therapist, going well. #. 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 - Pelvic Floor PT: seeing therapist, going well. #. Hepatitis B NONimmune: - S/p repeat vaccination. Dose #1 11/05, dose #2 01/05. #. TOMMIE - Admit hb 10.3. asymptomatic Intrapartum Course From the delivery note of Dr. Cantu: FINDINGS 1. Viable female at 40w1d. 2. Weight 2870g. 3. APGARs 8 and 9 at 1 and 5 minutes, respectively. 4. Intact placenta with 3-vessel cord. 5. 2nd degree perineal laceration, repaired. Right labial laceration, repaired. 6. Cord Gases: UA pH 7.26, BD -4.7; UV pH 7.38, BD -2.1. 7. EBL 350mL Dianne Mcintyre is a 34 year old who was admitted at 38w4d for IOL for cHTN (well controlled on medication) . was complicated by vulvodynia, pelvic pain, hepatitis B nonimmune status,and iron deficiency anemia. She underwent cervical ripening with PO cytotec, cervidil, and a ripening balloon, followed by labor augmentation with Pitocin. AROM occurred notable for clear fluid. She progressed to fully dilated and began pushing effectively. Pelvis was noted to be adequate. She delivered a viable . As the head was , it was noted that the patient's superior thick labial adhesion/band was holding up the head. At this time, I discussed incising the band which the patient was amenable to. Patient had appropriate anesthesia with her epidural after the areawas tested. The band was incised with curved Peters scissors. Head delivered in an MICHEL position, restituted to LOT and delivered without difficulty. There was a tight nuchal cord x2 that was reduced. The right anterior shoulder delivered first with gentle axial traction, followed by the left posterior shoulder without complication, and then rest of the body. The cord was clamped and cut after a 60 second delay. was then handed to awaiting NICU staff for further evaluation, who was present in the setting of meconium stained fluid. Cord pH was sent. Spontaneous delivery of a placenta with a 3-V cord ensued shortly thereafter. The placenta was examined and noted to be intact. She receivedIV Pitocin as a uterotonic agent. The was then placed on the patient's chest. Exam of the perineum revealed a second degree laceration, which was repaired in standard fashion using a 3-0 Vicryl suture. There was a small right superior labial laceration that was repaired with 3-0 Monocryl inan interrupted fashion. An interrupted suture with 3-0 Monocryl was then placed on the right and left superior labia where the labial band was incised. Excellent hemostasis was noted. Both mom and baby are recovering well. Course The patient's hospital course was unremarkable. She received routine care and recovered without complication. On PPD#2, her pain was well controlled with PO medications and lochia was stable. She was ambulating, voiding without difficulty, and tolerating a general diet. well. Infant was stable. She plans to use condoms for contraception. Blood pressures on discharge were well controlled with Labetalol 200mg BID. She was discharged to home in stable condition. Hemoglobin: Hemoglobin Date Value Ref Range Status 04/05/2025 10.3 (L) 11.7 - 15.7 g/dL Final Rh Status: positive, Rhogam is not indicated. Rubella Status: immune, MMR is not indicated. Discharge Instructions & Follow Up Discharge Diet Regular Discharge Activity Pelvic rest for 6 weeks including no sexual intercourse, tampons, or douching. Discharge Follow Up Follow up with primary OB for routine visit in 6 weeks Discharge Disposition Home Jimenez PATEL documented in this encounter Discharge Instructions * Discharge Instructions* Esha Villegas RN - 04/09/2025 10:57 AM CDT Images from the original note were not included. Care at Home With Your Baby: Care Instructions Overview After childbirth ( period), your body goes through many changes as you recover. In these weeks after delivery, try to take good care of yourself. Get rest whenever you can and accept help from others. It may take 4 to 6 weeks to feel like yourself again, and possibly longer if you had a . You may feel sore or very tired as you recover. After delivery, you may continue to have contractions as the uterus returns to the size it was before your . You will also have some vaginal bleeding. And you may have pain around the vagina as you heal. Several days after delivery you mayalso have pain and swelling in your breasts as they fill with milk. There are things you can do at home to help ease these discomforts. After childbirth, it's common to feel emotional. You may feel irritable, cry easily, and feel happyone minute and sad the next. This is called the baby blues. Hormone changes are one cause of these emotional changes. These feelings usually get better within a couple of weeks. If they don't, talkto your doctor or information systems security officer. In the first couple of weeks after you give , your doctor or information systems security officer may want to check in withyou and make a plan for follow-up care. You will likely have a complete visit in the first 3 months after delivery. At that time, your doctor or information systems security officer will check on your recovery and seehow you're doing. But if you have questions or concerns before then, you can always call your doctor or information systems security officer. Follow-up care is a perdue part of your treatment and safety. Be sure to make and go to all appointments, and call your doctor if you are having problems. It's also a good idea to know your test resultsand keep a list of the medicines you take. How can you care for yourself at home? Taking care of your body Use pads instead of tampons for bleeding. After , you will have bloody vaginal discharge. You may also pass some blood clots that shouldn't be bigger than an egg. Over the next 6 weeks or so, your bleeding should decrease a little every day and slowly change to a pinkish and then whitish discharge. For cramps or mild pain, try an yrrz-epr-owclwfm pain medicine, such as acetaminophen (Tylenol) or ibuprofen (Advil, Motrin). Read and follow all instructions on the label. To ease pain around the vagina or from hemorrhoids: Put ice or a cold pack on the area for 10 to 20 minutes at a time. Put a thin cloth between the iceand your skin. Try sitting in a few inches of warm water (sitz bath) when you can or after bowel movements. Clean yourself with a gentle squeeze of warm water from a bottle instead of wiping with toilet paper. Use witch mia or hemorrhoid pads (such as Tucks). Try using a cold compress for sore and swollen breasts. And wear a supportive bra that fits. Ease constipation by drinking plenty of fluids and eating high-fiber foods. Ask your doctor or information systems security officer about tmtb-cjl-jgihaxo stool softeners. Activity Rest when you can. Ask for help from family or friends when you need it. If you can, have another adult in your home for at least 2 or 3 days after . When you feel ready, try to get some exercise every day. For many people, walking is a good choice.Don't do any heavy exercise until your doctor or information systems security officer says it's okay. Ask your doctor or information systems security officer when it is okay to have vaginal sex. If you don't want to get , talk to your doctor or information systems security officer about control options. You can get even before your period returns. Also, you can get while you are . Talk to your doctor or information systems security officer if you want to get again. They can talk to you about when it is safe. Emotional health It's normal to have some sadness, anxiety, and mood swings after delivery. It may help to talk witha trusted friend or family member. You can also call the Maternal Mental Health Hotline at 5-887-[facility] ( ) for support. If these mood changes last more than a couple of weeks, talk toyour doctor or information systems security officer. When should you call for help? Share this information with your partner, family, or a friend. They can help you watch for warning signs. Call 911 anytime you think you may need emergency care. For example, call if: You feel you cannot stop from hurting yourself, your baby, or someone else. You passed out (lost consciousness). You have chest pain, are short of breath, or cough up blood. You have a seizure. Where to get help 24 hours a day, 7 days a week If you or someone you know talks about suicide, self-harm, a mental health crisis, a substance use crisis, or any other kind of emotional distress, get help right away. You can: Call the Suicide and Crisis Lifeline at 988. Call 0-844-213-TALK ( ). Text HOME to 601965 to access the Crisis Text Line. Consider saving these numbers in your phone. Go to [employer] for more information or to chat online. Call your doctor or information systems security officer now or seek immediate medical care if: You have signs of hemorrhage (too much bleeding), such as: Heavy vaginal bleeding. This means that you are soaking through one or more pads in an hour. Or youpass blood clots bigger than an egg. Feeling dizzy or lightheaded, or you feel like you may faint. Feeling so tired or weak that you cannot do your usual activities. A fast or irregular heartbeat. New or worse belly pain. You have signs of infection, such as: A fever. Increased pain, swelling, warmth, or redness from an incision or wound. Frequent or painful urination or blood in your urine. Vaginal discharge that smells bad. New or worse belly pain. You have symptoms of a blood clot in your leg (called a deep vein thrombosis), such as: Pain in the calf, back of the knee, thigh, or groin. Swelling in the leg or groin. A color change on the leg or groin. The skin may be reddish or purplish, depending on your usual skin color. You have signs of preeclampsia, such as: Sudden swelling of your face, hands, or feet. New vision problems (such as dimness, blurring, or seeing spots). A severe headache. You have signs of heart failure, such as: New or increased shortness of breath. New or worse swelling in your legs, ankles, or feet. Sudden weight gain, such as more than 2 to 3 pounds in a day or 5 pounds in a week. Feeling so tired or weak that you cannot do your usual activities. You had spinal or epidural pain relief and have: New or worse back pain. Increased pain, swelling, warmth, or redness at the injection site. Tingling, weakness, or numbness in your legs or groin. Watch closely for changes in your health, and be sure to contact your doctor or information systems security officer if: Your vaginal bleeding isn't decreasing. You feel sad, anxious, or hopeless for more than a few days. You are having problems with your breasts or . Where can you learn more? Go to https://www.[employer]/patiented Enter Z768 in the search box to learn more about Care at Home With Your Baby: Care Instructions. Current as of: January 06, 2025 Content Version: 14.6 ?? 3191-8756 [employer]. Care instructions adapted under license by your healthcare professional. If you have questions about a medical condition or this instruction, always ask your healthcare professional. [employer] disclaims any warranty or liability for your use of this information. BLOOD PRESSURE MONITORING - please check your blood pressure twice daily (morning/evening) - write down your blood pressures in a book/phone so we can review them in upcoming visit(s) - if you have any blood pressure that: systolic (upper number) is 160 or more, and/or diastolic (lower number) is 110 or above, call us immediately for further instructions. If your blood pressure persists to be severely elevated on subsequent checks done every 15 min, then please direct yourself to the ED for further evaluation. - pre-eclampsia signs and symptoms you should be aware of are: headache that does not resolve with Tylenol/sleep/caffeine/hydration, spots in your vision, worsening/generalized swelling, right upper and mid upper abdominal pain, tender to the touch and not resolving with Tylenol/Ibuprofen. Please notify us about these symptoms. - make an appointment in 1 week so we can review your blood pressures and plan next steps in management. documented in this encounter Medications at Time of Discharge acetaminophen (TYLENOL) 325 MG tabletIndications: Single liveborn infant delivered vaginally Take 2 tablets (650 mg) by mouth every 6 hours as needed for mild pain. 60 tablet 04/08/2025 ibuprofen (ADVIL/MOTRIN) 600 MG tabletIndications: Single liveborn delivered vaginally Take 1 tablet (600 mg) [...] by mouth at bedtime. 30 tablet 04/08/2025 documented as of this encounter Progress Notes * Sintia Gaona MD - 04/10/2025 8:43 AM CDT Patient Name: Dianne Mcintyre Age: [age] year old Date of : 1990 PROGRESS NOTE Pt is PPD#2 s/p vaginal delivery. She is doing well without complaints. Pt is ambulating, voiding, tolerating a regular diet. Pain is well controlled and lochia is within normal limits. She is . Baby is doing well. Denies headache, vision change, CP, SOB, n/v, upper abdominal pain, or increased swelling. She denies light headedness, dizziness, palpitations, CP, or SOB. Ambulating without issue. Objective: Temp: [97.3 ??F (36.3 ??C)-98.1 ??F (36.7 ??C)] 97.8 ??F (36.6 ??C) Pulse: [72-88] 72 Resp: [16] 16 BP: (125-139)/(72-88) 139/88 177 lbs 0 oz General Appearance: NAD Lungs: unlabored Cardiovascular: RRR Abdomen: nontender, nondistended. No RUQ TTP Fundus: firm, below the umbilicus Lower extremities: trace symmetric edema Lab Review: ABO/RH(D) Date Value Ref Range Status 04/05/2025 A POS Final Hemoglobin Date Value Ref Range Status 04/10/2025 9.2 (L) 11.7 - 15.7 g/dL Final 04/09/2025 10.0 (L) 11.7 - 15.7 g/dL Final 04/05/2025 10.3 (L) 11.7 - 15.7 g/dL Final Hematocrit Date Value Ref Range Status 04/10/2025 27.9 (L) 35.0 - 47.0 % Final 04/09/2025 29.5 (L) 35.0 - 47.0 % Final 04/05/2025 30.9 (L) 35.0 - 47.0 % Final Lab Results Component Value Date WBC 10.93 04/10/2025 Lab Results Component Value Date RBC 3.17 04/10/2025 Lab Results Component Value Date HGB 9.2 04/10/2025 Lab Results Component Value Date HCT 27.9 04/10/2025 No components found for: MCT Lab Results Component Value Date MCV 88.0 04/10/2025 Lab Results Component Value Date MCH 29.0 04/10/2025 Lab Results Component Value Date MCHC 33.0 04/10/2025 Lab Results Component Value Date RDW 13.8 04/10/2025 Lab Results Component Value Date PLT 192 04/10/2025 Assessment: 34yo PPD#2 s/p vaginal delivery, doing well. Plan: - : recovering well. Pain well controlled. Cont PO pain meds and regular diet. Encourage ambulation. - CHTN: - Bps normal range with no s/sx of preE - Cont Labetalol 200mg TID. She started this med in late 3rd , and tolerates it well. - Transaminitis: Asymptomatic. Repeat CMP at her close f/up visit - Upon DC, she will monitor Bps at home 2-3x daily. Will bring BP log to f/up appt and can titrate meds as indicated. - Acute on Chronic Anemia: Asymptomatic. Cont PO iron. - Contraception: condoms - Dispo: anticipate DC today with f/up in 1 week for BP check and repeat labs. MD Simon Hutchisonllet [employer]URNER April 10, 2025 * Caleb Dukes MD - 04/09/2025 9:00 AM CDT Patient Name: Dianne Mcintyre Age: [age] year old Date of : 1990 PROGRESS NOTE Pt is PPD#1 s/p vaginal delivery. She is doing well without complaints. Pt is ambulating, voiding, tolerating a regular diet. Pain is well controlled and lochia is within normal limits. She is . Baby is doing well. She denies stx of pre-e. She has labetalol and BP cuff at home. She denies stx of anemia. Objective: Temp: [97.6 ??F (36.4 ??C)-99 ??F (37.2 ??C)] 98.2 ??F (36.8 ??C) Pulse: [79] 79 Resp: [14-18] 16 BP: (109-139)/(60-89) 112/70 SpO2: [95 %-100 %] 97 % 177 lbs 0 oz General Appearance: NAD Abdomen: nontender, nondistended Fundus: firm, below the umbilicus Lower extremities: no significant edema Lab Review: ABO/RH(D) Date Value Ref Range Status 04/05/2025 A POS Final Hemoglobin Date Value Ref Range Status 04/05/2025 10.3 (L) 11.7 - 15.7 g/dL Final 03/27/2025 11.1 (L) 11.7 - 15.7 g/dL Final Hematocrit Date Value Ref Range Status 04/05/2025 30.9 (L) 35.0 - 47.0 % Final 03/27/2025 32.6 (L) 35.0 - 47.0 % Final Lab Results Component Value Date WBC 9.98 04/05/2025 Lab Results Component Value Date RBC 3.53 04/05/2025 Lab Results Component Value Date HGB 10.3 04/05/2025 Lab Results Component Value Date HCT 30.9 04/05/2025 No components found for: MCT Lab Results Component Value Date MCV 87.5 04/05/2025 Lab Results Component Value Date MCH 29.2 04/05/2025 Lab Results Component Value Date MCHC 33.3 04/05/2025 Lab Results Component Value Date RDW 13.6 04/05/2025 Lab Results Component Value Date PLT 211 04/05/2025 Assessment: PPD#1 s/p vaginal delivery, doing well. Plan: - : recovering well. Pain well controlled. Cont PO pain meds and regular diet. Encourage ambulation. - cHTN + At goal this admission on home PO labetalol 200mg TID + Has BP cuff at home + HELLP labs reassuring, AST 56, will repeat tomorrow. - Chronic TOMMIE + [place], Hgb stable + Continue home PO iron - Contraception: condoms - Dispo: anticipate DC PPD#2 * Rosibel Cantu MD - 04/08/2025 8:13 AM CDT [facility] Labor & Delivery Progress Note Dianne Mcintyre Date of : 1990 Primary OB: Simon RAE SUBJECTIVE Dianne Mcintyre is a 34 year old at 39w0d undergoing induction of labor for chronic hypertension. This morning she is overall doing well and has been coping well with the long cervical ripening process. She is currently comfortable with her contractions. OBJECTIVE Patient Vitals for the past 24 hrs: BP Temp Temp src Pulse Resp 04/08/25 0330 127/74 98.4 ??F (36.9 ??C) Oral -- 16 04/07/25 2216 121/85 98.2 ??F (36.8 ??C) Oral 81 -- 04/07/25 1915 118/84 97.7 ??F (36.5 ??C) Oral -- 04/07/25 1605 129/85 98.6 ??F (37 ??C) Oral 78 18 04/07/25 1407 132/83 -- -- -- -- 04/07/25 1205 135/81 -- -- -- -- 04/07/25 0949 120/81 98.7 ??F (37.1 ??C) Oral -- 16 Physical Exam General: Alert, in no acute distress, resting comfortably in bed. Neuro: Grossly normal to observation. Psych: Alert, oriented, affect appropriate. Cardiovascular: Normal rate, wwp. Respiratory: Nonlabored breathing, equal chest rise/fall bilaterally. Abdomen: Gravid, nontender. Skin: Color, texture, turgor normal. No concerning rashes or lesions. SVE 04/08 0730 /-2 Amniotomy performed with return of clear fluid. Head well applied to cervix with no cord prolapse. Monitoring FHT: baseline 135, moderate variability, 15x15 accels, no decels Lealman: Q3min ASSESSMENT & PLAN Dianne Mcintyre is a 34 year old at 39w0d admitted for IOL for chronic hypertension. #. IOL - S/p PO cytotec, cervical, and ripening balloon - Now s/p AROM. Continue Pit, changed to 2x2 this morning - Discussed IOL process with patient and goal for . We did also discuss what constitutes a failed IOL, however discussed that she is not at that point yet and as long as there is reassuring maternal and status, we can continue the process at this time. #. Well Being: - GBS negative, antibiotics not indicated - Continuous external monitoring - FHT Cat I #. Care: - OB labs reviewed: A, Rubella [...] condoms and considering other options - PEDS: [facility] #. Chronic Hypertension: - Started labetalol 200mg TID at 37 weeks - Baseline HELLP labs normal, P:C 0.07. - Admit HELLP labs wnl, UPC 0.11 - Blood pressures well controlled, no active sx of preE - Growth ultrasounds > 01/23 EFW 1157g (27%), AC 23%, anatomy cleared > 03/06 EFW 2100g (15%), AC 23%, projected EFW at 39w is 2957g #. TOMMIE - Admit Hb 10.3 MD Simon Kim OBGYN 04/08/2025 8:13 AM * Maribel Gallegos MD - 04/07/2025 7:45 PM CDT STRIP REVIEW Lealman ctxs q 3-4 min FHT 130 bpm, mod, a +, d- FHT Cat I BP 118/84 Pulse 78 Temp 97.7 ??F (36.5 ??C) (Oral) Resp 16 Ht 1.626 m (5' 4) Wt 80.3 kg (177 lb) SpO2 98% BMI 30.38 kg/m?? Will start pit 1X1 with balloon in place. Max to [address] 60/60 Pt tolerating well Pain control per pt request Dr. Acevedo [phone] * Maribel Gallegos MD - 04/07/2025 11:12 AM CDT [facility] [employer] PROGRESS NOTE S. Pt states she is doing well overall. Amenable for cervical check and if possible will place cervical balloon . +FM BP 120/81 Temp 98.7 ??F (37.1 ??C) (Oral) Resp 16 Ht 1.626 m (5' 4) Wt 80.3 kg (177 lb) SpO2 98% BMI 30.38 kg/m?? Lealman ctxs q 4-7 FHT 140 bpm, mod, a +, d- SVE FT/ 30 / -3, Cook catheter placed with 60 ml (uterine) and 30 in the vagina, will add 30 more once pt is more comfortable - difficult placement, speculum and ring forceps were needed) A/P Dianne Mcintyre is a 34 year old at 38w6d here with scheduled IOL secondary to CHTN - s/p 12 PO misoprostol doses throughout the day yesterday and cervidil due out today at noon - cervical balloon placed 60/30 - will add 30 vaginal once pt is more comfortable - pt aware that balloon can be up to [address] until it is able to be removed -may consider low dose pit overnight to help with process if balloon is still in place - once out pt is aware pitocin will start per IOL protocol - FHT Cat I CHTN - BP are wnl - labetalol 200 TID - continue monitoring Dr. Acevedo [phone] * Vonnie Dee DO - 04/06/2025 8:27 AM CDT [facility] [facility] OB PROGRESS NOTE S. Pt states she is doing well overall. Noticing some cramping . +FM BP 118/73 Temp 98.4 ??F (36.9 ??C) (Axillary) Resp 16 Ht 1.626 m (5' 4) Wt 80.3 kg (177 lb) BMI 30.38 kg/m?? Heart Tones: 135 baseline, moderate variablility, + accels, no decels, and Category I TOCO: frequency q 2-7 minutes A/P Dianne Mcintyre is a 34 year old at 38w5d here with IOL for CHTN -s/p 6 doses of oral miso and will continue with oral miso at this point -continue labetalol 200mg TID Dr. Vonnie Dee DO documented in this encounter H&P Notes * Ximena Ott MD - 04/05/2025 9:16 PM CDT April 05, 2025 Dianne Mcintyre [id number] OB Admit History & Physical Ms. Mcintyre is here for cervical ripening, due to chtn in . She has noticed good movement. No headaches, visual changes, RUQ pain, or swelling. Normotensive on admission No LMP recorded. Patient is . Her Estimated Date of Delivery: Apr 15, 2025 , making her 38w4d wks. Estimated body mass index is 30.38 kg/m?? as calculated from the following: Height as of this encounter: 1.626 m (5' 4). Weight as of this encounter: 80.3 kg (177 lb). Her course has been complicated by chtn, pelvic pain, vulvodynia. See for labs. neg GBBS, Rubella Immune, RH pos Estimated weight= 3000gm She is a 34 year old Her OB history: OB History Para Term AB Living 1 0 0 0 0 0 SAB IAB Ectopic Multiple Live Births 0 0 0 0 0 # Outcome Date GA Lbr Georgi/2nd Weight Sex Type Anes PTL Lv 1 Current Past Medical History: Diagnosis Date Chronic hypertension Past Surgical History: Procedure Laterality Date IR LUMBAR PUNCTURE 05/10/2023 TONSILLECTOMY 2002 No current outpatient medications on file. Allergies: Patient has no known allergies. REVIEW OF SYSTEMS: NEUROLOGIC: Negative EYES: Negative ENT: Negative GI: Negative BREAST: Negative : Negative CARTOGRAPHIC DRAFTER: Negative CV: Negative PULMONARY: Negative MUSCULOSKELETAL: Negative PSYCH: Negative Social History Socioeconomic History Marital status: Spouse name: Not on file Number of children: Not on file Years of education: Not on file Highest education level: Not on file Occupational History Not on file Tobacco Use Smoking status: Never Smokeless tobacco: Never Substance and Sexual Activity Alcohol use: Not Currently Drug use: Never Sexual activity: Not Currently Other Topics Concern Not on file Social History Narrative Not on file Social Drivers of Health Financial Resource Strain: Low Risk (04/05/2025) Financial Resource Strain Within the past 12 months, have you or your family members you live with been unable to get utilities (heat, electricity) when it was really needed?: No Food Insecurity: Low Risk (04/05/2025) Food Insecurity Within the past 12 months, did you worry that your food would run out before you got money to buy more?: No Within the past 12 months, did the food you bought just not last and you didn???t have money to getmore?: No Transportation Needs: Low Risk (04/05/2025) Transportation Needs Within the past 12 months, has lack of transportation kept you from medical appointments, getting your medicines, non-medical meetings or appointments, work, or from getting things that you need?: No Physical Activity: Not on file Stress: Not on file Social Connections: Socially Integrated (07/14/2022) Received from [employer] Social Connections Frequency of Communication with Friends and Family: 0 Interpersonal Safety: Not on file Housing Stability: Low Risk (04/05/2025) Housing Stability Do you have housing? : Yes Are you worried about losing your housing?: No History reviewed. No pertinent family history. Vitals: FHT cat1 Alert Awake in NAD HEENT grossly normal Neck: no lymphadenopathy or thryoidomegaly Lungs CTAB Back no spinal or CVAT Heart RRR ABD gravid, nonetender on exam with vertex palpable Pelvic: no fluid noted, no blood noted Cervix is 0 cm / 70 % effaced at -2 station EXT: no edema or calf tenderness Neuro: grossly intact Assessment/Plan: Ms. Dianne Mcintyre is a 34 y/o with SIUP 38w4, admitted for cervical ripeningdue to chronic htn in Care: - OB labs reviewed: A, Rubella [...] condoms and considering other options [facility] - continue taking vitamins #. Chronic Hypertension: - Started labetalol 200mg TID at 37 weeks - Baseline HELLP labs normal, P:C 0.07. - Has blood pressure cuff at home. - Growth ultrasounds > 01/23 EFW 1157g (27%), AC 23%, anatomy cleared > 03/06 EFW 2100g (15%), AC 23%, projected EFW at 39w is 2957g #. Pelvic Pain: - Discussed supportive measures like Tylenol, heat/ice, warm baths, support belt - Pelvic Floor PT: seeing therapist, going well. #. 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 - Pelvic Floor PT: seeing therapist, going well. #. Hepatitis B NONimmune: - S/p repeat vaccination. Dose #1 11/05, dose #2 01/05. #. TOMMIE -admit hb 10.3. asymptomatic Ximena Ott MD [facility] [employer] April 05, 2025 documented in this encounter Miscellaneous Notes * Note - Ella Ring, RN - 04/10/2025 12:23 PM CDT in to visit with patient before discharge home. Baby at breast doing a lot of sucking late to swallow despite compressions. Pointed out some swallows. Swallow very inconsistent. Came off ofbreast after feed still cueing after slowing down and being ineffective. Switched to second side. Opened wide, fatigued quickly. Hand expression shown to patient. Some drops seen. Plan to supplement with donor with this feed, will use formula at home to supplement. Encouraged to start pumping to help milk transition in. Reviewed signs of effective feeds, hydration, engorgement and mastitis. Has aspectra pump at home. Discuss if feed effective just breastfeed on demand not going longer than three hours. Milk storage guidelines reviewed, and was given booklet on safe mixing of formula. resources in this area given although parents live in [place], gave number for [facility] that she can call to get connected to her area. Questions answered home today. * Plan of Care - Esha Villegas RN - 04/10/2025 9:36 AM CDT Goal Outcome Evaluation: Plan of Care Reviewed With: patient, spouse Overall Patient Progress: improvingOverall Patient Progress: improving Vitals stable. checks within normal limits. Ambulating independently. Voiding spontaneously. Pain controlled with tylenol and ibuprofen. Attempting to breastfeed every 2-3 hours with a nipple shield. Baby has a shallow latch and moms nipples are sore and blistered. Encouraged hand expression with each feed for milk supply and to give baby drops of milk, mom did not hand express after feeding this morning. nurse saw patient before discharging. Has a breast pump at home. Bonding well with baby, frequent holding observed. Spouse at bedside and attentive to mom and baby. Discharge education complete with patient and spouse. Questions encouraged and all questions answered. Bands checked. Has a bp cuff at home. Discussed preeclampsia and home blood pressure monitoring. Problem: Adult Inpatient Plan of Care Goal: Plan of Care Review Outcome: Met Flowsheets (Taken 04/10/2025935) Plan of Care Reviewed With: patient spouse Overall Patient Progress: improving Goal: Patient-Specific Goal (Individualized) Outcome: Met Goal: Absence of Hospital-Acquired Illness or Injury Outcome: Met Goal: Optimal Comfort and Wellbeing Outcome: Met Goal: Readiness for Transition of Care Outcome: Met Flowsheets Taken 04/10/2025931 Anticipated Changes Related to Illness: none Concerns to be Addressed: all concerns addressed in this encounter Barriers to Discharge: None Taken 04/10/2025899 Concerns to be Addressed: all concerns addressed in this encounter Intervention: Mutually Develop Transition Plan Recent Flowsheet Documentation Taken 04/10/2025931 by Esha Villegas, manager welding Coordination/Progress: Done Anticipated Changes Related to Illness: none Concerns to be Addressed: all concerns addressed in this encounter Taken 04/10/2025899 by Esha Villegas, RN Transportation Concerns: none Concerns to be Addressed: all concerns addressed in this encounter Patient/Family Anticipated Services at Transition: none Patient/Family Anticipates Transition to: home with family Equipment Currently Used at Home: none Problem: Hypertensive Disorders in Goal: Patient- Stabilization Outcome: Met Problem: Fall Injury Risk Goal: Absence of Fall and Fall-Related Injury Outcome: Met Problem: (Vaginal Delivery) Goal: Successful Parent Role Transition Outcome: Met Goal: Hemostasis Outcome: Met Goal: Absence of Infection Signs and Symptoms Outcome: Met Goal: Anesthesia/Sedation Recovery Outcome: Met Goal: Optimal Pain Control and Function Outcome: Met Goal: Effective Urinary Elimination Outcome: Met * Plan of Care - Tere Hamlin RN - 04/10/2025 6:21 AM CDT Vital signs stable. checks WDL. Pt is up ad yuly, voiding w/o difficulties. Pt is independent in self cares. Pt is every 2-3 hrs, tolerating well. Encouraged to call for feeding assistance. Pain well controlled with Tylenol and Ibuprofen. Pt stated increased comfort after each medication. Pt is attentive to all cues and cares. Positive bonding and frequent holding observed. FOB at bedside, supportive of pt. Goal Outcome Evaluation: Plan of Care Reviewed With: patient, spouse Overall Patient Progress: improvingOverall Patient Progress: improving Problem: Adult Inpatient Plan of Care Goal: Plan of Care Review Description: The Plan of Care Review/Shift note should be completed every shift. The Outcome Evaluation is a brief statement about your assessment that the patient is improving, declining, or no change. This information will be displayed automatically on your shift note. Outcome: Progressing Flowsheets (Taken 04/09/20252114) Plan of Care Reviewed With: patient spouse Overall Patient Progress: improving Goal: Optimal Comfort and Wellbeing Intervention: Monitor Pain and Promote Comfort Recent Flowsheet Documentation Taken 04/09/20252103 by Tere Hamlin RN Pain Management Interventions: medication (see MAR) Problem: (Vaginal Delivery) Goal: Optimal Pain Control and Function Intervention: Prevent or Manage Pain Recent Flowsheet Documentation Taken 04/09/20252103 by Tere Hamlin RN Pain Management Interventions: medication (see MAR) * Note - Ella Ring RN - 04/09/2025 6:43 PM CDT in to visit with Dianne and her baby Ceci. Ceci is first baby for family. Reviewed normal course of , supply and demand, when milk transitions, 10-12 feeds per day, watching feeding cues, engorgement and mastitis. Assisted with positioning and latch per patients request. Showed Dianne tummy to tummy and nipple to nose. Baby opened and latched well. Patient has shorter nipples, baby able to latch. Importance of deep latched reviewed. Swallows heard and pointed out to Dianne. Employee Benefits Specialist able to start to hear audible swallows after 2-3 minutes of suckling. Baby nursed for 10 minutes before fatigue. Discussed first 24 hour possible sleepiness and cluster feeding. Educatedon engorgement, mastitis and treatment. Questions answered, encouraged to call prn. * Plan of Care - Dianne Sloan RN - 04/09/2025 6:11 PM CDT Goal Outcome Evaluation: Plan of Care Reviewed With: patient, spouse Overall Patient Progress: improvingOverall Patient Progress: improving Outcome Evaluation: VSS. . Pt is bonding well with baby girl. Tolerates eating and drinking. Fundus is firm, midline and 2 cm below umbilicus. Lochia is scant, rubra and pt denies having any clots. Voiding and passing gas. Ambulating independently. Tolerating perineal pain well with, tylenol, ibuprofen.- rating a 2/10. Problem: Adult Inpatient Plan of Care Goal: Plan of Care Review Description: The Plan of Care Review/Shift note should be completed every shift. The Outcome Evaluation is a brief statement about your assessment that the patient is improving, declining, or no change. This information will be displayed automatically on your shift note. Outcome: Progressing Flowsheets (Taken 04/09/2025 1609) Outcome Evaluation: VSS. infant. Plan of Care Reviewed With: patient spouse Overall Patient Progress: improving Goal: Patient-Specific Goal (Individualized) Description: You can add care plan individualizations to a care plan. Examples of Individualizationmight be: Parent requests to be called daily at 9am for status, I have a hard time hearing out of my right ear, or Do not touch me to wake me up as it startles me. Outcome: Progressing Goal: Absence of Hospital-Acquired Illness or Injury Outcome: Progressing Intervention: Prevent Skin Injury Recent Flowsheet Documentation Taken 04/09/2025 1007 by Dianne Sloan RN Body Position: position changed independently Taken 04/09/2025 1006 by Dianne Sloan RN Body Position: position changed independently Intervention: Prevent Infection Recent Flowsheet Documentation Taken 04/09/2025 1007 by Dianne Sloan RN Infection Prevention: hand hygiene promoted rest/sleep promoted single patient room provided Taken 04/09/2025 0933 by Dianne Sloan RN Infection Prevention: hand hygiene promoted rest/sleep promoted single patient room provided Goal: Optimal Comfort and Wellbeing Outcome: Progressing Intervention: Monitor Pain and Promote Comfort Recent Flowsheet Documentation Taken 04/09/2025 1306 by Dianne Sloan RN Pain Management Interventions: medication (see MAR) cold applied Taken 04/09/2025 1006 by Dianne Sloan RN Pain Management Interventions: medication (see MAR) cold applied Intervention: Provide Person-Centered Care Recent Flowsheet Documentation Taken 04/09/2025 1007 by Dianne Sloan RN Trust Relationship/Rapport: care explained choices provided empathic listening provided emotional support provided questions answered questions encouraged reassurance provided thoughts/feelings acknowledged Goal: Readiness for Transition of Care Outcome: Progressing Problem: Hypertensive Disorders in Goal: Patient- Stabilization Outcome: Progressing Problem: Fall Injury Risk Goal: Absence of Fall and Fall-Related Injury Outcome: Progressing Problem: (Vaginal Delivery) Goal: Successful Parent Role Transition Outcome: Progressing Intervention: Support Parent Role Transition Recent Flowsheet Documentation Taken 04/09/2025 1007 by Dianne Sloan RN Supportive Measures: active listening utilized decision-making supported goal-setting facilitated positive reinforcement provided problem-solving facilitated relaxation techniques promoted self-care encouraged verbalization of feelings encouraged Goal: Hemostasis Outcome: Progressing Goal: Absence of Infection Signs and Symptoms Outcome: Progressing Goal: Anesthesia/Sedation Recovery Outcome: Progressing Goal: Optimal Pain Control and Function Outcome: Progressing Intervention: Prevent or Manage Pain Recent Flowsheet Documentation Taken 04/09/2025 1306 by Dianne Sloan RN Pain Management Interventions: medication (see MAR) cold applied Taken 04/09/2025 1007 by Dianne Sloan RN Perineal Care: perineal hygiene encouraged perineal spray bottle/warm water use encouraged Taken 04/09/2025 1006 by Dianne Sloan RN Pain Management Interventions: medication (see MAR) cold applied Goal: Effective Urinary Elimination Outcome: Progressing Intervention: Monitor and Manage Urinary Retention Recent Flowsheet Documentation Taken 04/09/2025 1007 by Dianne Sloan RN Urinary Elimination Promotion: frequent voiding encouraged voiding relaxation promoted * Provider Notification - Dianne Sloan RN - 04/09/2025 5:32 PM CDT 04/09/25 1731 Provider Notification Provider Name/Title Dr. Dukes Method of Notification Electronic Page Request Evaluate-Remote Notification Reason Lab Results Md notified of elevated AST of 56, no other S&S of pre E. MD will repeat labs in the AM. * Plan of Care - Tere Hamlin RN - 04/09/2025 5:50 AM CDT Vital signs stable. checks WDL. Pt is up ad yuly, voiding w/o difficulties. Pt is independent in self cares. Pt is Breast feeding every 2-3 hrs, tolerating well. Using a nipple shield intermittently. Pain well controlled with Tylenol and Ibuprofen. Pt stated increased comfort after each medication. Pt is attentive to all cues and cares. Positive bonding and frequent holding observed. FOB at bedside, supportive of pt. Goal Outcome Evaluation: Plan of Care Reviewed With: patient, spouse Overall Patient Progress: improvingOverall Patient Progress: improving Problem: Adult Inpatient Plan of Care Goal: Plan of Care Review Description: The Plan of Care Review/Shift note should be completed every shift. The Outcome Evaluation is a brief statement about your assessment that the patient is improving, declining, or no change. This information will be displayed automatically on your shift note. Outcome: Progressing Flowsheets (Taken 04/09/2025 0229) Plan of Care Reviewed With: patient spouse Overall Patient Progress: improving Problem: Adult Inpatient Plan of Care Goal: Plan of Care Review Description: The Plan of Care Review/Shift note should be completed every shift. The Outcome Evaluation is a brief statement about your assessment that the patient is improving, declining, or no change. This information will be displayed automatically on your shift note. Outcome: Progressing Flowsheets (Taken 04/09/2025 0229) Plan of Care Reviewed With: patient spouse Overall Patient Progress: improving Goal: Absence of Hospital-Acquired Illness or Injury Outcome: Progressing Goal: Optimal Comfort and Wellbeing Outcome: Progressing Goal: Readiness for Transition of Care Outcome: Progressing * Care Plan - Maura Camacho RN - 04/09/2025 1:04 AM CDT Data: Dianne Mcintyre transferred to [facility] via wheelchair at n-5. Baby transferred via bassinet. Action: Receiving unit notified of transfer: Yes. Patient and family notified of room change. Report given to Noreen SCOTT at 0038. Belongings sent to receiving unit. Accompanied by Registered Nurse. Oriented patient to surroundings. Call light within reach. ID bands double-checked with receiving RN. Response: Patient tolerated transfer and is stable. Patients mobililty level scored using the bedside mobility assistance tool (BMAT). Patient is at a mobility level test number: 4. Mobility equipment used: none required. Required assist of 1 staff members. Further use of BMAT scoring not required. * Provider Notification - Maura Camacho RN - 04/08/2025 10:13 PM CDT 04/08/25 2212 Provider Notification Provider Name/Title Dr. Cantu Method of Notification At Bedside Request Attend Delivery MD at bedside to attend delivery * L&D Delivery Note - Rosibel Cantu MD - 04/08/2025 9:25 PM CDT [facility] Vaginal Delivery Note Dianne Mcintyre Date of : 1990 Primary OB: Simon Vincent OBGYN FINDINGS 1. Viable female infant at 40w1d. 2. Weight 2870g. 3. APGARs 8 and 9 at 1 and 5 minutes, respectively. 4. Intact placenta with 3-vessel cord. 5. 2nd degree perineal laceration, repaired. Right labial laceration, repaired. 6. Cord Gases: UA pH 7.26, BD -4.7; UV pH 7.38, BD -2.1. 7. EBL 350mL Dianne Mcintyre is a 34 year old who was admitted at 38w4d for IOL for cHTN (well controlled on medication) . was complicated by vulvodynia, pelvic pain, hepatitis B nonimmune status,and iron deficiency anemia. She underwent cervical ripening with PO cytotec, cervidil, and a ripening balloon, followed by labor augmentation with Pitocin. AROM occurred notable for clear fluid. She progressed to fully dilated and began pushing effectively. Pelvis was noted to be adequate. She delivered a viable infant. As the head was , it was noted that the patient's superior thick labial adhesion/band was holding up the head. At this time, I discussed incising the band which the patient was amenable to. Patient had appropriate anesthesia with her epidural after the areawas tested. The band was incised with curved Peters scissors. Head delivered in an MICHEL position, restituted to LOT and delivered without difficulty. There was a tight nuchal cord x2 that was reduced. The right anterior shoulder delivered first with gentle axial traction, followed by the left posterior shoulder without complication, and then rest of the body. The cord was clamped and cut after a 60 second delay. Infant was then handed to awaiting NICU staff for further evaluation, who was present in the setting of meconium stained fluid. Cord pH was sent. Spontaneous delivery of a placenta with a 3-V cord ensued shortly thereafter. The placenta was examined and noted to be intact. She receivedIV Pitocin as a uterotonic agent. The infant was then placed on the patient's chest. Exam of the perineum revealed a second degree laceration, which was repaired in standard fashion using a 3-0 Vicryl suture. There was a small right superior labial laceration that was repaired with 3-0 Monocryl in an interrupted fashion. An interrupted suture with 3-0 Monocryl was then placed on the right and left superior labia where the labial band was incised. Excellent hemostasis was noted. Both mom and baby are recovering well. MD Simon Kim Melisa BUTCH 04/08/2025 11:08 PM Delivery Summary Dianne Mcintyre Age: [age] year old Date of : 1990 Francisco Javier, Female-Dianne [[id number]] Labor Event Times Latent labor onset date/time: 04/08/2025 07:30 Active labor onset date: 04/08/25 Onset time: 4:00 PM Dilation complete date: 04/08/25 Complete time: 8:24 PM Start pushing date/time: 04/08/2025 20:34 Labor Events labor?: No steroids: None Labor Type: Induction/Cervical ripening Predominate monitoring during 1st stage: continuous electronic monitoring Antibiotics received during labor?: No Rupture date/time: 04/08/25 07:30 Rupture type: Artificial Rupture of Membranes Fluid color: Clear, Meconium Fluid odor: Normal Induction date/time: Cervical ripening date/time: 04/05/25 20:37 Delivery/Placenta Date and Time Delivery Date: 04/08/25 Delivery Time: 10:20 PM Delivering clinician: Rosibel Cantu MD Other personnel present at delivery: Provider Role Maura Camacho, profile mill operator tape control Nurse Carrie Moran V profile mill operator tape control Assist Vaginal Counts Initial count performed by 2 team members: Two Team Members maura cantu Barnett Suture Barnett Sponges (RETIRED) Instruments Initial counts 2 5 Added to count 2 Relief counts Final counts 2 2 5 Placed during labor Accounted for at the end of labor FSE No NA IUPC No NA Cervidil No NA Final count performed by 2 team members: Two Team Members Dr. Alondra Moran RN Final count correct?: Yes Apgars Living status: Living 1 Minute 5 Minute 10 Minute 15 Minute 20 Minute Skin color: 0 1 Heart rate: 2 2 Reflex irritability: 2 2 Muscle tone: 2 2 Respiratory effort: 2 2 Total: 8 9 Apgars assigned by: MAURA CAMACHO RN Cord Vessels: 3 Vessels Cord Blood Disposition: Discard Gases Sent?: Yes Delayed cord clamping?: Yes Cord Clamping Delay (seconds): 31-60 seconds Creede Resuscitation Methods: None [place] Care at Delivery: Called to attend vaginal delivery by Dr. Cantu due to meconium stained fluid. Infant born with moderate tone and some weak cries. After 1 minute of delayed cord clamping she was brought to the warmer where she was dried and stimulated. Infant pink and well perfused with good respiratory effort and no work of breathing. Physical exam notable for moderate caput succedaneum. required no further resuscitation and NICU team was dismissed. Stacie Castillo PA-C 04/08/2025 10:29 PM [facility] [place] Measurements Weight: 6 lb 5.2 oz Length: 1' 8.5 Head circumference: 33.5 cm Skin to Skin and Feeding Plan Skin to skin initiation date/time: 07/04/1840 Skin to skin with: Mother Skin to skin end date/time: Delivery (Maternal) (Provider to Complete) ([id number]) Blood Loss Mother: Dianne Mcintyre #[id number] Start of Mother's Information Delivery Blood Loss Intrapartum & : 04/08/25 1600 - 04/08/258 Delivery Admission: 04/05/25 1924 - 04/08/25 2308 Intrapartum & Delivery Admission Delivery QBL (mL) Hospital Encounter 350 mL 350 mL Total 350 mL 350 mL End of Mother's Information Mother: Dianne Mcintyre #[id number] Delivery - Provider to Complete ([id number]) Delivering clinician: Rosibel Cantu MD Other personnel: Provider Role Maura Camacho RN Delivery Nurse Carrie Moran V profile mill operator tape control Assist Anesthesia Method: Epidural Alondra Gleason MD * Provider Notification - Maura Camacho RN - 04/08/2025 9:07 PM CDT 04/08/252106 Provider Notification Provider Name/Title Dr. Cantu Method of Notification At Bedside Request Evaluate in Person MD at bedside to evaluate patient has been pushing for 30 min * Provider Notification - Maura Camacho RN - 04/08/2025 8:34 PM CDT 04/08/252033 Provider Notification Provider Name/Title Dr. Cantu Method of Notification At Bedside Request Evaluate in Person MD at bedside to evaluate patient pushing * Provider Notification - Maura Camacho RN - 04/08/2025 8:30 PM CDT 04/08/252029 Provider Notification Provider Name/Title Dr. Cantu Method of Notification In Department Request Evaluate in Person Notification Reason SVE Pt complete MD will come to bedside and assess practice pushes * Provider Notification - Maura Camacho RN - 04/08/2025 7:53 PM CDT 04/08/251952 Provider Notification Provider Name/Title Dr. Cantu Method of Notification In Department Request Evaluate - Remote Notification Reason Decels;Status Update MD updated that patient was checked after prolonged deceleration and is still 9 cm. Patient is repositioned and is sitting in throne with closed knees. Fluid bolus being administered right now due tominimal variability. Will check SVE in about 1 hour unless needed sooner evaluation * Provider Notification - Ivy Womack RN - 04/08/2025 6:51 PM CDT 04/08/25 185 Provider Notification Provider Name/Title Alondra Method of Notification Electronic Page Request Evaluate - Remote Notification Reason Status Update;SVE 9/100/0, feeling intermittent pressure. * Provider Notification - Ivy Womack RN - 04/08/2025 5:44 PM CDT 04/08/25 1743 Provider Notification Provider Name/Title Alondra Method of Notification Electronic Page Request Evaluate-Remote Notification Reason Status Update /0. Moderate variability, early decels. * Provider Notification - Ivy Womack RN - 04/08/2025 4:08 PM CDT 04/08/25 1600 Provider Notification Provider Name/Title Alondra Method of Notification Electronic Page Request Evaluate - Remote SVE 6.5-100/0. Caput/molding. Pt comfortable, sleeping between cares. FHT moderate variability, early decels. Cx showing as inverted at times. * Provider Notification - Ivy Womack RN - 04/08/2025 1:00 PM CDT 04/08/25 1300 Provider Notification Provider Name/Title Alondra Method of Notification Electronic Page Request Evaluate - Remote Notification Reason SVE;Status Update Update:SVE is now 1. Baby well applied to the cervix. Pit running at 18. Pt comfortable with epidural, not feeling cx. Bess placed. FHT Cat I. * Provider Notification - Ivy Womack RN - 04/08/2025 7:28 AM CDT 04/08/25 0728 Provider Notification Provider Name/Title alondra Method of Notification At Bedside Zaiz at bedside, AROM clear fluid. /-2. Pitocin changed to 2x2, upped to 10. * Provider Notification - Maura Camacho RN - 04/07/2025 11:23 PM CDT 04/07/25 2323 Provider Notification Provider Name/Title Dr. Acevedo Method of Notification Electronic Page Request Evaluate - Remote Notification Reason Decels;Status Update MD asked to review strip after patient has been off pitocin for over an hour. MD reviewed strip andokay to start pit 1x1 after 20 min of no decelerations on tracing. * Provider Notification - Maura Camacho RN - 04/07/2025 9:49 PM CDT 04/07/252142 Provider Notification Provider Name/Title Dr. Acevedo Method of Notification Electronic Page Request Evaluate - Remote Notification Reason Decels;Status Update;SVE MD updated that patient's cook balloon is out. FHR has been showing intermittent lates and pit still at 1 mEu due to decels, SVE 60/-2. MD would like to stop pitocin and see if FHR becomes cat 1 * Provider Notification - Maura Camacho RN - 04/07/2025 7:46 PM CDT 04/07/251945 Provider Notification Provider Name/Title Dr. Acevedo Method of Notification In Department Request Evaluate - Remote Notification Reason Status Update MD in department notified patient and are agreeable to pitocin. MD would like low dose pitocin with max rate of 10 mEu while balloon is in place * Provider Notification - Alia Bello RN - 04/07/2025 6:40 PM CDT 04/07/251833 Provider Notification Provider Name/Title Dr. Acevedo Method of Notification At Bedside Notification Reason Other (Comment) (assessed placement of cook balloon, verified still in place, dr spoke with pt about using some lowdose pitocin overnight, pt will discuss with SO.) * Provider Notification - Alia Bello RN - 04/07/2025 6:36 PM CDT 04/07/25 1834 Provider Notification Provider Name/Title Dr. Acevedo Method of Notification At Bedside Notification Reason Other (Comment) (assessed placement of cook balloon, verified still in place) * Plan of Care - Alia Bello RN - 04/07/2025 6:00 PM CDT Pt called out feeling some pressure, Pt stated feeling some intermittent slight pressure. bid writer sve balloon was still in place, yet has descended. Dr updated. * Provider Notification - Alia Bello RN - 04/07/2025 12:43 PM CDT 04/07/25 1239 Provider Notification Provider Name/Title Dr. Acevedo Method of Notification At Bedside Notification Reason (dr placed cook balloon, 50mL uterine/30mL vaginal, stated to wait and put 30mL more vaginal after pt adjusts to current amount. stated to not give labetalol now, and just give 1400 scheduled dose. bp's normotensive. pt denies any s/s.) * Plan of Care - Jill Sommers RN - 04/07/2025 6:30 AM CDT Goal Outcome Evaluation: Plan of Care Reviewed With: patient, spouse Outcome Evaluation: pt resting overnight, VSS, cervidil to be removed at 1205. pt mostly unaware ofcx, cx occuring 2-10 minutes apart, tracing overall cat 1. IV intact and flushed. * Plan of Care - Shaila Richard RN - 04/06/2025 6:51 PM CDT Goal Outcome Evaluation: Plan of Care Reviewed With: patient, spouse Overall Patient Progress: improvingOverall Patient Progress: improving Outcome Evaluation: VSS. Asymptomatic. FHR mod.variability with accelerations and 1 late deceleration during this shift. Contractions irregular, mild with palpation. IV site intact and flushed. Pt repositioning and using birthing ball. Pt already received 11 doses oral cytotec, next dose due @ 1930(12th dose). Pt desires to shower tonight if possible. Spouse at bedside and supportive. Problem: Adult Inpatient Plan of Care Goal: Plan of Care Review Outcome: Progressing Flowsheets (Taken 04/06/20251843) Outcome Evaluation: VSS. Asymptomatic. FHR mod.variability with accelerations and 1 late deceleration during this shift. Contractions irregular, mild with palpation. IV site intact and flushed. Pt repositioning and using birthing ball. Pt already received 11 doses oral cytotec, next dose due @ 1930(12th dose). Pt desires to shower tonight if possible. Spouse at bedside and supportive. Plan of Care Reviewed With: patient spouse Overall Patient Progress: improving Goal: Patient-Specific Goal (Individualized) Outcome: Progressing Flowsheets (Taken 04/06/20251843) Individualized Care Needs: continue to follow pt's plan Patient/Family-Specific Goals (Include Timeframe): pt desires to take a shower tonight after 2129 Goal: Absence of Hospital-Acquired Illness or Injury Outcome: Progressing Intervention: Prevent Skin Injury Recent Flowsheet Documentation Taken 04/06/20251524 by Shaila Richard RN Body Position: position changed independently Intervention: Prevent Infection Recent Flowsheet Documentation Taken 04/06/20251524 by Shaila Richard RN Infection Prevention: single patient room provided rest/sleep promoted hand hygiene promoted Goal: Optimal Comfort and Wellbeing Outcome: Progressing Intervention: Provide Person-Centered Care Recent Flowsheet Documentation Taken 04/06/20251524 by Shaila Richard RN Trust Relationship/Rapport: care explained choices provided questions answered questions encouraged reassurance provided thoughts/feelings acknowledged Goal: Readiness for Transition of Care Outcome: Progressing Flowsheets (Taken 04/06/20251843) Anticipated Changes Related to Illness: none Intervention: Mutually Develop Transition Plan Recent Flowsheet Documentation Taken 04/06/20251843 by Shaila Richard RN Anticipated Changes Related to Illness: none Problem: Labor Goal: Hemostasis Outcome: Progressing Goal: Stable Wellbeing Outcome: Progressing Intervention: Promote and Monitor Wellbeing Recent Flowsheet Documentation Taken 04/06/20251524 by Shaila Richard RN Body Position: position changed independently Goal: Effective Progression to Delivery Outcome: Progressing Goal: Absence of Infection Signs and Symptoms Outcome: Progressing Intervention: Prevent or Manage Infection Recent Flowsheet Documentation Taken 04/06/2025 152 by Shaila Richard RN Infection Prevention: single patient room provided rest/sleep promoted hand hygiene promoted Goal: Acceptable Pain Control Outcome: Progressing Intervention: Support Labor Pain Coping and Management Recent Flowsheet Documentation Taken 04/06/20251524 by Shaila Richard RN Sensory Stimulation Regulation: quiet environment promoted lighting decreased care clustered Goal: Normal Uterine Contraction Pattern Outcome: Progressing Problem: Hypertensive Disorders in Goal: Patient- Stabilization Outcome: Progressing * Provider Notification - Shaila Richard RN - 04/06/2025 5:18 PM CDT 04/06/25 1718 Provider Notification Provider Name/Title Method of Notification Electronic Page Request Evaluate - Remote Notification Reason Status Update;Patient Request Dr.Schlies conrad messaged bid writer requesting an update: pt overall fine. Pt requesting to take a shower if possible. Dose 11 due now. Plan to complete all 12 doses ( last dose due @ 1930) then wait 2 hours, check cervix @ 2130 then patient may take shower pending FHR normal. POC discussed with patient. * Provider Notification - Alia Bello RN - 04/06/2025 3:00 PM CDT 04/06/25 8639 Provider Notification Provider Name/Title Dr. Dee Notification Reason Status Update;SVE (updated of sve unchanged, very postior, pina =3. will continue po miso.) * Provider Notification - Alia Bello RN - 04/06/2025 1:25 PM CDT 04/06/25 1325 Provider Notification Provider Name/Title Dr. Dee Notification Reason Status Update (update pt comforable, is aware of contractions mild, fht's moderate variability/+accel/no decels, pt talking through, dr stated to rechek cervix before 10th po miso.) * Provider Notification - Maura Camacho RN - 04/05/2025 8:04 PM CDT 04/05/251999 Provider Notification Provider Name/Title Dr. Ott Method of Notification Phone Request Evaluate - Remote Notification Reason Patient Arrived MD notified that patient is here for cervical ripening induction for CHTN. Patient is a , at 38+4, GBS neg, taking 200 mg labetalol TID. EFM shows cat 1 tracing with moderate variability, accels,no decels, and one contraction present. Patient denies feeling contractions. SVE 0/70/-3. MD gave orders for PO cytotec, CMP, protein random urine, and sleep meds PRN. * Care Plan - Maura Camacho RN - 04/05/2025 7:45 AM CDT Data: [facility]: 04/05/2025 7:24 PM. Patient admitted for induction for chronic hypertension. Patient is a . record reviewed. has been complicated by chronic hypertension. Gestational Age 38w4d. VSS. movement active. Patient denies uterine contractions, leaking of vaginal fluid/rupture of membranes, vaginal bleeding, abdominal pain, pelvic pressure, nausea, vomiting, headache, visual disturbances, epigastric or URQ pain, significant edema. Support person is pres ent. Action: Verbal consent for EFM. Admission assessment completed. Bill of rights reviewed. Response: Patient verbalized agreement with plan. Will contact Dr Ximena Ott with update and further orders. documented in this encounter Plan of Treatment Upcoming Encounters Date Type Department Care Team (Latest Contact Info) Description 04/15/2025 Medical Correspondence [facility] Information Management [address] [facility] [address] [place] [address] Scan, Non-Provider PATIENT COMMUNICATION RECORD Scheduled Referrals Name Type Priority Associated Diagnoses Orde r Schedule Home Care Referral Referral Routine: Next available opening Hypertension affecting in third trimester Ordered: 04/08/2025 documented as of this encounter Procedures Procedure Name Priority Date/Time Associated Diagnosis Comments CBC WITH PLATELETS (LIMITED OCCURRENCES) Routine 04/10/2025 7:22 AM CDT COMPREHENSIVE METABOLIC PANEL (LIMITED OCCURRENCES) Routine 04/10/2025 7:22 AM CDT CBC WITH PLATELETS (LIMITED OCCURRENCES) Routine 04/09/2025 8:32 AM CDT COMPREHENSIVE METABOLIC PANEL (LIMITED OCCURRENCES) Routine 04/09/2025 8:32 AM CDT PLACENTA PATH ORDER AND INDICATIONS Routine 04/08/2025 10:37 PM CDT PROTEIN AND CREATININE WITH RATIO RANDOM URINE STAT 04/05/2025 9:22 PM CDT TYPE AND SCREEN, ADULT STAT 8:34 PM CDT COMPREHENSIVE METABOLIC PANEL (LIMITED OCCURRENCES) STAT 04/05/2025 8:34 PM CDT TREPONEMA ABS W REFLEX TO RPR AND TITER STAT 04/05/2025 8:34 PM CDT ABO/RH TYPE AND SCREEN STAT 8:34 PM CDT CBC WITH PLATELETS STAT 04/05/2025 8: 34 PM CDT GROUP B STREPTOCOCCUS (EXTERNAL RESULT) Routine 03/25/2025 12:00 PM CDT GROUP B STREPTOCOCCUS (EXTERNAL RESULT) Routine 03/18/2025 9:00 AM CDT HEPATITIS B SURFACE ANTIGEN (EXTERNAL RESULT) Routine 09/18/2024 9:00 AM CDT TREPONEMA PALLIDUM ANTIBODY (RPR) (EXTERNAL RESULT) Routine 09/18/2024 9:00 AM CDT HIV 1&2 ANTIBODY (EXTERNAL RESULT) Routine 09/18/2024 9:00 AM CDT RUBELLA ANTIBODY IGG (EXTERNAL RESULT) Routine 09/18/2024 9:00 AM CDT documented in this encounter Results * (ABNORMAL) Comprehensive Metabolic Panel (Limited Occurrences) (04/10/2025 7:22 AM CDT) [facility] Sodium 137 135 - 145 mmol/L 04/10/2025 7:55 AM CDT [facility] Potassium 4.0 3.4 - 5.3 mmol/L 04/10/2025 7:55 AM CDT [facility] Carbon Dioxide (CO2) 21(L) 22 - 29 mmol/L 04/10/2025 7:55 AM CDT [facility] Anion Gap 12 7 - 15 mmol/L 04/10/2025 7:55 AM CDT [facility] Urea Nitrogen 8.4 6.0 - 20.0 mg/dL 04/10/2025 7:55 AM CDT [facility] Creatinine 0.58 0.51 - 0.95 mg/dL 04/10/2025 7:55 AM CDT [facility] GFR Estimate >90 >60 mL/min/1.7 3m2 04/10/2025 7:55 AM CDT [facility] Comment:eGFR calculated usin 2020 CKD-EPI equation. Calcium 8.6(L) 8.8 - 10.4 mg/dL 04/10/2025 7:55 AM CDT [facility] Chloride 104 98 - 107 mmol/L 04/10/2025 7:55 AM CDT [facility] Glucose 84 70 - 99 mg/dL 04/10/2025 7:55 AM CDT [facility] Alkaline Phosphatase 84 40 - 150 U/L 04/10/2025 7:55 AM CDT [facility] AST 63(H) 0 - 45 U/L 04/10/2025 7:55 AM CDT [facility] ALT 38 0 - 50 U/L 04/10/2025 7:55 AM CDT [facility] Protein Total 5.6(L) 6.4 - 8.3 g/dL 04/10/2025 7:55 AM CDT [facility] Albumin 2.9(L) 3.5 - 5.2 g/dL 04/10/2025 7:55 AM CDT [facility] Bilirubin Total 0.2 <=1.2 mg/dL 04/10/2025 7:55 AM CDT [facility] Blood STRUCTURE OF RIGHT HAND / Unknown Venipuncture / Unknown 04/10/2025 7:22 AM CDT 04/10/2025 7:30 AM CDT us Caleb Dukes MD LAB - BLOOD ORDERABLES Final Res ult [facility] [address] [facility] Lab (1st floor, no room number) [place] [address] * (ABNORMAL) CBC with Platelets (Limited Occurrences) (04/10/2025 7:22 AM CDT) WBC Count 10.93 4.00 - 11.00 10e3/uL 04/10/2025 7:37 AM CDT [facility] RBC Count 3.17(L) 3.80 - 5.20 10e6/uL 04/10/2025 7:37 AM CDT [facility] Hemoglobin 9.2(L) 11.7 - 15.7 g/dL 04/10/2025 7:37 AM CDT [facility] Hematocrit 27.9(L) 35.0 - 47.0 % 04/10/2025 7:37 AM CDT [facility] MCV 88.0 78.0 - 100.0 fL 04/10/2025 7:37 AM CDT [facility] MCH 29.0 26.5 - 33.0 pg 04/10/2025 7:37 AM CDT [facility] MCHC 33.0 31.5 - 36.5 g/dL 04/10/2025 7:37 AM CDT [facility] RDW 13.8 10.0 - 15.0 % 04/10/2025 7:37 AM CDT [facility] Platelet Count 192 150 - 450 10e3/uL 04/10/2025 7:37 AM CDT [facility] Blood STRUCTURE OF RIGHT HAND / Unknown Venipuncture / Unknown 04/10/2025 7:22 AM CDT 04/10/2025 7:30 AM CDT us Caleb Dukes MD LAB - BLOOD ORDERABLES Final Res ult [facility] [address] Lab (1st floor, no room number) [place] [address] * (ABNORMAL) Comprehensive Metabolic Panel (Limited Occurrences) (04/09/2025 8:32 AM CDT) Sodium 138 135 - 145 mmol/L 04/09/2025 9:06 AM CDT LABORATORY Potassium 4.0 3.4 - 5.3 mmol/L 04/09/2025 9:06 AM CDT LAB[facility]ATORY Carbon Dioxide (CO2) 21(L) 22 - 29 mmol/L 04/09/2025 9:06 AM CDT [facility] Anion Gap 12 7 - 15 mmol/L 04/09/2025 9:06 AM CDT LABORATORY Urea Nitrogen 9.7 6.0 - 20.0 mg/dL 04/09/2025 9:06 AM CDT [facility]ORY Creatinine 0.59 0.51 - 0.95 mg/dL 04/09/2025 9:06 AM CDT [facility]ORY GFR Estimate >90 >60 mL/min/1.7 3m2 04/09/2025 9:06 AM CDT [facility] Comment:eGFR calculated usin 2020 CKD-EPI equation. Calcium 8.6(L) 8.8 - 10.4 mg/dL 04/09/2025 9:06 AM CDT [facility] Chloride 105 98 - 107 mmol/L 04/09/2025 9:06 AM CDT [facility] Glucose 89 70 - 99 mg/dL 04/09/2025 9:06 AM CDT [facility] Alkaline Phosphatase 90 40 - 150 U/L 04/09/2025 9:06 AM CDT [facility] AST 56(H) 0 - 45 U/L 04/09/2025 9:06 AM CDT [facility] ALT 32 0 - 50 U/L 04/09/2025 9:06 AM CDT [facility] Protein Total 5.5(L) 6.4 - 8.3 g/dL 04/09/2025 9:06 AM CDT [facility] Albumin 3.0(L) 3.5 - 5.2 g/dL 04/09/2025 9:06 AM CDT [facility] Bilirubin Total 0.2 <=1.2 mg/dL 04/09/2025 9:06 AM CDT [facility] Blood STRUCTURE OF RIGHT HAND / Unknown Venipuncture / Unknown 04/09/2025 8:32 AM CDT 04/09/2025 8:42 AM CDT us Rosibel Cantu MD LAB - BLOOD ORDERABLES Final Re sult LABORATORY [facility] [address] [facility] Lab (1st floor, no room number) [place] [address], [place] * (ABNORMAL) CBC with Platelets (Limited Occurrences) (04/09/2025 8:32 AM CDT) WBC Count 15.96(H) 4.00 - 11.00 10e3/uL 04/09/2025 8:45 AM CDT [facility] RBC Count 3.43(L) 3.80 - 5.20 10e6/uL 04/09/2025 8:45 AM CDT [facility] Hemoglobin 10.0(L) 11.7 - 15.7 g/dL 04/09/2025 8:45 AM CDT [facility] Hematocrit 29.5(L) 35.0 - 47.0 % 04/09/2025 8:45 AM CDT [facility] MCV 86.0 78.0 - 100.0 fL 04/09/2025 8:45 AM CDT [facility] MCH 29.2 26.5 - 33.0 pg 04/09/2025 8:45 AM CDT [facility] MCHC 33.9 31.5 - 36.5 g/dL 04/09/2025 8:45 AM CDT [facility] RDW 13.7 10.0 - 15.0 % 04/09/2025 8:45 AM CDT [facility] Platelet Count 190 150 - 450 10e3/uL 04/09/2025 8:45 AM CDT [facility] Blood STRUCTURE OF RIGHT HAND / Unknown Venipuncture / Unknown 04/09/2025 8:32 AM CDT 04/09/2025 8:42 AM CDT us Rosibel Cantu MD LAB - BLOOD ORDERABLES Final Re sult [facility] [address] Lab (1st floor, no room number) [place] [address] * Placenta path order and indications (04/08/2025 10:37 PM CDT) Case Report Surgical Pathology Report Case: [id number] Authorizing Provider: Rosibel Cantu MD Collected: 04/08/2025 10:37 PM Ordering Location: [facility] Received: 04/08/2025 11:01 PM [facility] Pathologist: Shukri Landaverde MD Specimen: Placenta 04/10/2025 3:21 PM CDT LABORATORY Final Diagnosis A. Placenta, 3rd trimester: - Mature third trimester escoto placenta with normal weight for gestational age, no histopathologic abnormalities identified involving trivascular cord, membranes or villi. 04/10/2025 3:21 PM CDT LABORATORY at 1521 CDT Clinical Information 4 year old who was admitted at 38w4d for IOL for cHTN (well controlled on medication) 04/10/2025 3:21 PM CDT [facility] Gross Description A(A). Placenta, : The specimen is received in formalin labeled with the patient's name, medical record number, and other identifying information and designated placenta. Type: Escoto CORD Length: 15.5 cm Diameter: 1.0 cm Number of vessels: 3 Insertion: Eccentric, 7.0 cm to the nearest disc margin MEMBRANES Condition: Disrupted Color: pink-white Transparency: Slightly thickened and semitranslucent Insertion: Circummarginate DISC Trimmed weight: 420 g (normal weight for gestational age, expected weight 409 - 589 g) Dimensions: 18.1 x 17.2 x 2.4 cm Surface: Steel blue, glistening with a normal arborizing pattern of vasculature Maternal surface: Griffith-red with lobulated, likely complete cotyledons Findings upon sectioning: Cut surfaces are griffith-red, spongy, and unremarkable. No discrete lesions are identified. SUMMARY OF SECTIONS: A1- membrane roll and umbilical cord A2- full thickness central 1/3 of placenta, bisected A3- full thickness peripheral placenta (LEAH Dougherty)04/09/2025 8:53 AM 04/10/2025 3:21 PM CDT LABORATORY Microscopic Description Microscopic examination is performed with findings supportive of the diagnosis as noted. 04/10/2025 3:21 PM T LABORATORY Performing Labs The technical component of this testing was completed at [facility]. Stain controls for all stains resulted within this report have been reviewed and show appropriate reactivity. 04/10/2025 3:21 PM CDT LABORATORY Case Images 04/10/2025 3:21 PM CDT LABORATORY Placenta PLACENTAL STRUCTURE / Unknown Non-blood Collection / Unknown 04/08/2025 10:37 PM CDT 04/08/2025 11:01 PM CDT us Rosibel PIZANO - JAZMIN AP Final Result LABORATORY [facility] [address] 1st floor, [address] [place] [address], [place] [phone] LABORATORY [facility] Lab [address] [facility] Lab (1st floor, no room number) [place] [address], [place] * Protein and Creatinine with Ratio Random Urine (04/05/2025 9:22 PM CDT) Total Protein Urine mg/dL 9.5 mg/dL 04/05/2025 9:59 PM CDT [facility] LABORATORY Comment:The reference ranges have not been established in urine protein. The results should be integrated into the clinical context for interpretation. Total Protein Urine mg/mg Creat 0.11 0.00 - 0.20 mg/mg Cr 04/05/2025 9:59 PM CDT [facility] LABORATORY Creatinine Urine mg/dL 83.0 mg/dL 04/05/2025 9:59 PM CDT [facility] LABORATORY Comment:The reference ranges have not been established in urine creatinine. The results should be integrated into the clinical context for interpretation. Urine MID-STREAM URINE SPECIMEN / Unknown Non-blood Collection / Unknown 04/05/2025 9:22 PM CDT 04/05/2025 9:26 PM CDT us Ximena Ott MD LAB - URINE ORDERABLES Fi nal Result LABORATORY [facility] [address] Lab (1st floor, no room number) [place] [address], [place] * Adult Type and Screen (04/05/2025 8:34 PM CDT) Pathologist [facility] ABO/RH(D) A POS 04/05/2025 9:19 PM CDT RH BLOOD BANK Antibody Screen Negative Negative 04/05/2025 9:19 PM CDT RH BLOOD BANK SPECIMEN EXPIRATION DATE 04/08/2025 11:59:00 PM CDT 04/05/2025 9:19 PM CDT RH BLOOD BANK Blood BLOOD SPECIMEN / Unknown Venipuncture / Unknown 04/05/2025 8:34 PM CDT 04/05/2025 8:38 PM CDT us Ximena Ott MD LAB - BLOOD BANK TEST ORD ER Final Result BLOOD BANK [address] [place] [place] [address], [place] * (ABNORMAL) Comprehensive Metabolic Panel (Limited Occurrences) (04/05/2025 8:34 PM CDT) Sodium 137 135 - 145 mmol/L 04/05/2025 8:56 PM CDT [facility] LABORATORY Potassium 3.6 3.4 - 5.3 mmol/L 04/05/2025 8:56 PM CDT [facility] LABORATORY Carbon Dioxide (CO2) 20(L) 22 - 29 mmol/L 04/05/2025 8:56 PM CDT [facility] LABORATORY Anion Gap 14 7 - 15 mmol/L 04/05/2025 8:56 PM CDT [facility] LABORATORY Urea Nitrogen 14.5 6.0 - 20.0 mg/dL 04/05/2025 8:56 PM CDT [facility] LABORATORY Creatinine 0.51 0.51 - 0.95 mg/dL 04/05/2025 8:56 PM CDT [facility] LABORATORY GFR Estimate >90 >60 mL/min/1.7 3m2 04/05/2025 8:56 PM CDT [facility] LABORATORY Comment:eGFR calculated usin g 2020 CKD-EPI equation. Calcium 9.2 8.8 - 10.4 mg/dL 04/05/2025 8:56 PM CDT [facility] LABORATORY Chloride 103 98 - 107 mmol/L 04/05/2025 8:56 PM CDT [facility] LABORATORY Glucose 117(H) 70 - 99 mg/dL 04/05/2025 8:56 PM CDT [facility] LABORATORY Alkaline Phosphatase 100 40 - 150 U/L 04/05/2025 8:56 PM CDT [facility] LABORATORY AST 19 0 - 45 U/L 04/05/2025 8:56 PM CDT [facility] LABORATORY ALT 18 0 - 50 U/L 04/05/2025 8:56 PM CDT [facility] LABORATORY Protein Total 6.3(L) 6.4 - 8.3 g/dL 04/05/2025 8:56 PM CDT [facility] LABORATORY Albumin 3.3(L) 3.5 - 5.2 g/dL 04/05/2025 8:56 PM CDT [facility] LABORATORY Bilirubin Total 0.2 <=1.2 mg/dL 04/05/2025 8:56 PM CDT [facility] LABORATORY Blood BLOOD SPECIMEN / Unknown Venipuncture / Unknown 04/05/2025 8:34 PM CDT 04/05/2025 8:38 PM CDT us Ximena Ott MD LAB - BLOOD ORDERABLES Fi nal Result LABORATORY [facility] [address] Lab (1st floor, no room number) [place] [address] * Treponema Abs w Reflex to RPR and Titer (04/05/2025 8:34 PM CDT) Treponema Antibody Total Nonreactive Nonreactive 04/06/2025 8:49 AM CDT SPECIALTY LABS Blood BLOOD SPECIMEN / Unknown Venipuncture / Unknown 04/05/2025 8:34 PM CDT 04/05/2025 8:38 PM CDT us Ximena Ott MD LAB - BLOOD ORDERABLES Fi nal Result [facility] SPECIALTY CORE/PROT/ENDO Specialty Core/Prot/Endo [address] [facility], [address] SPECIALTY LABS Specialty Lab [address] [facility], [address] [address], [place] * (ABNORMAL) CBC with platelets (04/05/2025 8:34 PM CDT) WBC Count 9.98 4.00 - 11.00 10e3/uL 04/05/2025 8:40 PM CDT RH LABORATORY RBC Count 3.53(L) 3.80 - 5.20 10e6/uL 04/05/2025 8:40 PM CDT [facility] LABORATORY Hemoglobin 10.3(L) 11.7 - 15.7 g/dL 04/05/2025 8:40 PM CDT [facility] LABORATORY Hematocrit 30.9(L) 35.0 - 47.0 % 04/05/2025 8:40 PM CDT [facility] LABORATORY MCV 87.5 78.0 - 100.0 fL 04/05/2025 8:40 PM CDT [facility] LABORATORY MCH 29.2 26.5 - 33.0 pg 04/05/2025 8:40 PM CDT RH LABORATORY MCHC 33.3 31.5 - 36.5 g/dL 04/05/2025 8:40 PM CDT RH LABORATORY RDW 13.6 10.0 - 15.0 % 04/05/2025 8:40 PM CDT RH LABORATORY Platelet Count 211 150 - 450 10e3/uL 04/05/2025 8:40 PM CDT [facility] LABORATORY Blood BLOOD SPECIMEN / Unknown Venipuncture / Unknown 04/05/2025 8:34 PM CDT 04/05/2025 8:38 PM CDT us Ximena Ott MD LAB - BLOOD ORDERABLES Fi nal Result LABORATORY [facility] [address] [facility] Lab (1st floor, no room number) [place] [address], [place] * Group B Streptococcus (External Result) (03/25/2025 12:00 PM CDT) Group B Streptococcus (External) Negative Negative EXTERNAL LAB 03/25/2025 12:0 0 PM CDT us Patient Reported LAB - HIM EXTERNAL RESULT Final Result EXTERNAL LAB External Lab * Group B Streptococcus (External Result) (03/18/2025 9:00 AM CDT) Group B Streptococcus (External) Negative Negative [facility] 03/18/2025 9:00 AM CDT us Patient Reported LAB - HIM EXTERNAL RESULT Final Result [address] [address], [place] [phone] * HIV-1 Antibody (External Result) (09/18/2024 9:00 AM CDT) HIV 1&2 Antibody (External) Negative Nonreactive [facility] 09/18/2024 9:00 AM CDT us Patient Reported LAB - HIM EXTERNAL RESULT Final Result Performing Organization Address [facility] Phone Number [facility] [address] [place] [address], [place] [phone] * Rubella Antibody IgG (External Result) (09/18/2024 9:00 AM CDT) Rubella Antibody IgG (External) Immune Nonreactive [facility] 09/18/2024 9:00 AM CDT us Patient Reported LAB - HIM EXTERNAL RESULT Final Result Performing Organization Address [facility] Phone Number [facility] [address] [place], [place] [id number] [place] [address] * Hepatitis B Surface Antigen (External Result) (09/18/2024 9:00 AM CDT) Hepatitis B Surface Antigen (External) Negative Nonreactive [facility] 09/18/2024 9:00 AM CDT us Patient Reported LAB - HIM EXTERNAL RESULT Final Result Performing Organization Address [facility] Phone Number [facility] [address] [place] [address], [place] [phone] * Treponema Pallidum Antibody (RPR) (External Result) (09/18/2024 9:00 AM CDT) Treponema Palldum Antibody (External) Nonreactive Nonreactive [facility] 09/18/2024 9:00 AM CDT us Patient Reported LAB - HIM EXTERNAL RESULT Final Result Performing Organization Address [facility] [place] Phone Number [facility] [address] [place] [address], [place] [phone] documented in this encounter Visit Diagnoses Diagnosis Indication for care in labor or delivery- Primary Unspecified indication for care or intervention related to labor and delivery, unspecified as to episode of care Lactating mother care and examination of lactating mother Single liveborn infant delivered vaginally Single liveborn, born in hospital, delivered without mention of delivery Hypertension affecting in third trimester Chronic hypertension affecting Chronic hypertension affecting documented in this encounter Admitting Diagnoses Diagnosis Indication for care in labor or delivery Unspecified indication for care or intervention related to labor and delivery, unspecified as to episode of care documented in this encounter Administered Medications Inactive Administered Medications - up to 3 most recent administrations Medication Order MAR Action Action Date Dose Rate Site acetaminophen (TYLENOL) tablet 650 mg 650 mg, Oral, EVERY 4 HOURS PRN, fever, other, second line or per patient preference for mild to moderate pain management, Starting on Sun04/08/25 at 2256, May give concurrently or alternating with ibuprofen. Maximum acetaminophen dose from all sources = 75 mg/kg/day not to exceed 4 grams/day., $Given 04/10/2025 10:57 AM CDT 650 mg $Given 04/10/2025 6:17 AM CDT 650 mg $Given 04/10/2025 1:02 AM CDT 650 mg bisacodyl (DULCOLAX) suppository 10 mg 10 mg, Rectal, DAILY PRN, constipation, Starting on Sun04/08/25 at 2258, Use IF polyethylene glycol not effective. Do not administer if patient has 3rd or 4th degree lacerations. Hold for loose stools., carboprost (HEMABATE) injection 250 mcg 250 mcg, Intramuscular, EVERY 15 MIN PRN, other, ONLY for uterine atony with significant bleeding POST-DELIVERY, Starting on Sun04/08/25 at 2256, Notify provider IF uterine atony and clarify with provider medication preference. Administer only if directed by provider. Give with caution in patients with asthma, active pulmonary, hepatic, renal or cardiovascular disease., dinoprostone (CERVIDIL) vaginal insert 10 mg 10 mg, Vaginal, ONCE, Administer over 12 Hours, On Sun04/06/25 at 2200, For 1 dose, Remove 12 hours after insertion OR for these conditions: - 3 [id number]-wd-lqpqzaimq contractions within 10 minutes, averaged over 30 minutes - Uterine tachysystole - Minimal or absent variability with no accelerations for 60 minutes - Category 2 tracing with minimal or absent variability and intermittent/recurrent decelerations - Any prolonged deceleration within the past 30 minutes - Category 3 FHR tracing - Pina Score 6 or greater - Active vaginal bleeding - Adverse maternal reactions (i.e., fever or nausea) $Patch/Med Applied 04/07/2025 12:05 AM CDT 10 mg fentaNYL (PF) (SUBLIMAZE) injection 100 mcg 100 mcg, Intravenous, EVERY 1 HOUR PRN, other, desired pain relief based on labor coping, Starting on 04/05/25 at 2004, Hold dose for analgesic side effects. Perform RASS scoring with pain assessment. Notify provider to assess for uncontrolled pain or analgesic side effects. If maximum total dose of 200 mcg in 2 hour period is given, contact provider for further orders. Maximum total dose of 400 mcg over an 8 hour period. If respiratory rate LESS THAN 8 or maternal HR LESS THAN 50, call provider., Intrapartum $Given 04/08/2025 10:11 AM CDT 100 mcg fentaNYL (SUBLIMAZE) 2 mcg/mL, BUPivacaine (MARCAINE) 0.125% in NS premix for PCEA PCEA dose (mL): 5, PCEA Lockout Interval (min): 15 minutes, Hour Limit (mL): 25, Continuous Rate (Basal Rate) (mL/hr): 10, Initial Set-up verified by: Ivy Womack Rn, Absolutely no anticoagulants, thrombolytics or antiplatelet medications or other opioid analgesics or other sedatives without prior notification of anesthesiology. For CADD cassettes, pharmacy to send epidural tubing set., Routine $New Syringe/Cartridge 04/08/2025 8:54 PM CDT $New Syringe/Cartridge 04/08/2025 12:17 PM CDT hydrocortisone (Perianal) (ANUSOL-HC) 2.5 % cream Rectal, 3 TIMES DAILY PRN, hemorrhoids, Starting on Sun04/08/25 at 2256, Apply to hemorrhoids. Send only if nurse requests., hydrOXYzine HCl (ATARAX) tablet 100 mg 100 mg, Oral, ONCE PRN, sleep, Starting on 04/06/25 at 2153, For 1 dose hydrOXYzine HCl (ATARAX) tablet 50 mg 50 mg, Oral, AT BEDTIME PRN, itching, for rest and relaxation, Starting on 04/05/25 at 2006, If rest and relaxation not achieved within 2 hours of initial hydroxyzine 50 mg PO dose, may repeat x 1., Intrapartum $Given 04/06/2025 11:52 PM CDT 50 mg $Given 04/06/2025 12:49 AM CDT 50 mg ibuprofen (ADVIL/MOTRIN) tablet 800 mg 800 mg, Oral, EVERY 6 HOURS PRN, other, first line or per patient preference for mild to moderate pain management, Starting on 04/08/25 at 2256, Start 6 hours after ketorolac is completed (if ordered). May give concurrently or alternating with acetaminophen. Max dose: 3200 mg/day Give with food., $Given 04/10/2025 6:55 AM CDT 800 mg $Given 04/10/2025 1:02 AM CDT 800 mg $Given 04/09/2025 7:13 PM CDT 800 mg ketorolac (TORADOL) injection 15 mg 15 mg, Intravenous, ONCE PRN, other, moderate pain immediately post-delivery, Starting on Sun04/05/25 at 2003, For 1 dose, Can cause pain on injection. If ordered intravenously (IV) : administer through a running maintenance fluid over 1 minute followed by a flush. If patient complains of pain on injection, may dilute 15-30 mg in 5 mL and push over 1 to 2 minutes., $Given 04/08/2025 10:53 PM CDT 15 mg labetalol (NORMODYNE) tablet 200 mg 200 mg, Oral, 3 TIMES DAILY, First dose on Sun04/05/25 at 2100 $Given 04/10/2025 10:56 AM CDT 200 mg $Given 04/10/2025 1:02 AM CDT 200 mg $Given 04/09/2025 5:13 PM CDT 200 mg lactated ringers BOLUS 500 mL Intravenous, 500 mL, EVERY 1 HOUR PRN, other, per policy for intrauterine corrective measures or excessive uterine activity., Starting on Sun04/05/25 at 2003, For 5 doses, Intrapartum Rate/Dose Change 04/08/2025 7:51 PM CDT Rate/Dose Change 04/08/2025 1:30 AM CDT Rate/Dose Change 04/07/2025 10:42 PM CDT lactated ringers infusion at 25-125 mL/hr, Intravenous, CONTINUOUS PRN, Titrate lactated ringers rate to obtain total IV intake of 125 mL/hr. Total IV fluids should not exceed 125 mL/hr without provider order., Intrapartum, Starting on Sun04/07/25 at 1945, Until Sun04/08/25 at 2258 $New Bag 04/08/2025 2:02 AM CDT 75 mL/hr Restarted 04/07/2025 11:51 PM CDT 75 mL/hr Restarted 04/07/2025 10:41 PM CDT 75 mL/hr loperamide (IMODIUM) capsule 2 mg 2 mg, Oral, EVERY 2 HOURS PRN, other, after each loose stool, Starting on Sun04/08/25 at 2256, May give only after delivery. For diarrhea occurring after carboprost (HEMABATE) administration ONLY. Maximum 16 mg/day. Do NOT give stool softeners or laxatives until diarrhea is resolved., loperamide (IMODIUM) capsule 4 mg 4 mg, Oral, ONCE PRN, other, Give with first dose of carboprost (HEMABATE), Starting on Sun04/08/25 at 2256, For 1 dose, May give only after delivery., methylcellulose (CITRUCEL) tablet 1,000 mg 1,000 mg, Oral, DAILY, First dose on Raven 04/09/25 at 0900, Administer with 8 ounces of liquid., $Given 04/10/2025 10:56 AM CDT 1,000 mg $Given 04/09/2025 10:08 AM CDT 1,000 mg methylergonovine (METHERGINE) injection 200 mcg 200 mcg, Intramuscular, EVERY 2 HOURS PRN, ONLY for uterine atony with significant bleeding POST-DELIVERY, Starting on Sun04/08/25 at 2256, Notify provider IF uterine atony and clarify with provider medication preference. Administer only if directed by provider. Contraindicated if Blood Pressure greater than 140/90, preeclampsia, or hypertension., metoclopramide (REGLAN) injection 10 mg 10 mg, Intravenous, Administer over 2 Minutes, EVERY 6 HOURS PRN, nausea/vomiting - 1st line, Starting on 04/05/25 at 2004, This is Step 1 of OB nausea and vomiting management. Use IV if not tolerating oral therapy. If nausea is not resolved in 30 minutes, go to Step 2 (Zofran). Avoid use if patient has full bowel obstruction or perforation., Intrapartum $Given 04/08/2025 5:19 PM CDT 10 mg misoprostol (cervical ripening) (CYTOTEC) quarter-tab 25 mcg 25 mcg, Oral, EVERY 2 HOURS, First dose on 04/05/25 at 2030, For 12 doses, After 24 hours of administration, if ineffective, provider may consider change to agent or mode of cervical ripening Notify provider if dose is held for any reason. HOLD scheduled dose IF: - 3 or more tvbvtntp-er-[id number] contractions within 10 minutes, averaged over 30 minutes - Uterine tachysystole (see uterine activity guideline) - Minimal or absent variability with no accelerations (spontaneous or elicited) for 60 minutes - Category 2 tracing with minimal or absent variability and intermittent/recurrent decelerations - Any prolonged deceleration within the past 30 minutes - Category 3 FHR tracing - Pina Score 6 or greater - Active vaginal bleeding - Adverse maternal reactions (i.e., fever or nausea) Provider: Delay oxytocin induction/augmentation at least 2 hours after the last dose of misoprostol (CYTOTEC). , Intrapartum $Given 04/06/2025 7:46 PM CDT 25 mcg $Given 04/06/2025 5:30 PM CDT 25 mcg $Given 04/06/2025 3:22 PM CDT 25 mcg misoprostol (CYTOTEC) tablet 400 mcg 400 mcg, Oral, GIVE ONCE PRN AND REPEAT ACCORDING TO INSTRUCTIONS, post- hemorrhage, Starting on Sun04/08/25 at 2256, Administer only if directed by provider. Max administrations: 4 doses, misoprostol (CYTOTEC) tablet 800 mcg 800 mcg, Rectal, GIVE ONCE PRN AND REPEAT ACCORDING TO INSTRUCTIONS, post- hemorrhage, Starting on Sun04/08/25 at 2256, Give rectally if unable to take oral without complications. Administer only if directed by provider. Max administrations: 4 doses., nalbuphine (NUBAIN) injection 2.5-5 mg 2.5-5 mg, Intravenous, EVERY 6 HOURS PRN, other, for pruritus, Starting on 04/06/25 at 1432, Give 2.5 mg initially. If pruritus persists after 30 minutes, may give additional 2.5 mg. If effective, then repeat effective dose Q6H PRN pruritus., Intra + Post naloxone (NARCAN) injection 0.2 mg 0.2 mg, Intravenous, EVERY 2 MIN PRN, opioid reversal, Starting on 04/05/25 at 2012, Administer intravenous route when available and notify provider when administered. For unintended sedation or respiratory depression if all of the below criteria are met: ~ respiratory rate LESS than or EQUAL to 8. ~SaO2 less than 92% and or/end-tidal CO2 is greater than 50. ~ the patient is receiving an opioid, has unintended sedations assessed as RASS (-3), and is currently not on mechanical ventilation. RASS scale moderate (-3) is movement or eye opening to voice but no eye contact. Patient Monitoring Once the patient has demonstrated a response to the naloxone, continue to monitor respiratory rate, depth, oxygen saturation and end-tidal CO2 (if available) every 15 minutes x 2, then every 30 minutes x 2, then every 1 hour x 1 after each naloxone dose. Consider transfer to ICU if patient respiratory parameters have not improved after 4 naloxone doses. naloxone (NARCAN) injection 0.2 mg 0.2 mg, Intramuscular, EVERY 2 MIN PRN, opioid reversal, Starting on Sun04/05/25 at 2012, Administer intramuscular if an intravenous route is not available and notify provider when administered. For unintended sedation or respiratory depression if all of the below criteria are met: ~ respiratory rate LESS than or EQUAL to 8. ~SaO2 less than 92% and or/end-tidal CO2 is greater than 50. ~ the patient is receiving an opioid, has unintended sedations assessed as RASS (-3), and is currently not on mechanical ventilation. RASS scale moderate (-3) is movement or eye opening to voice but no eye contact. Patient Monitoring Once the patient has demonstrated a response to the naloxone, continue to monitor respiratory rate, depth, oxygen saturation and end-tidal CO2 (if available) every 15 minutes x 2, then every 30 minutes x 2, then every 1 hour x 1 after each naloxone dose. Consider transfer to ICU if patient respiratory parameters have not improved after 4 naloxone doses. naloxone (NARCAN) injection 0.4 mg 0.4 mg, Intravenous, EVERY 2 MIN PRN, opioid reversal, Starting on Sun04/05/25 at 2012, Administer intravenous route when available and notify provider when administered. For unintended sedation or respiratory depression if all of the below criteria are met: ~ respiratory rate LESS than or EQUAL to 8. ~ SaO2 less than 92% and or/end-tidal CO2 is greater than 50. ~ the patient is receiving an opioid, has unintended sedation assessed as RASS (-4) or (-5) and patient is currently not on mechanical ventilation. RASS scale (-4) is deep sedation with no response to voice but movement or eye opening to physical stimulation. RASS scale (-5) is unarousable. Patient Monitoring Once the patient has demonstrated a response to the naloxone, continue to monitor respiratory rate, depth, oxygen saturation and end-tidal CO2 (if available) every 15 minutes x 2, then every 30 minutes x 2, then every 1 hour x 1 after each naloxone dose. Consider transfer to ICU if patient respiratory parameters have not improved after 4 naloxone doses. naloxone (NARCAN) injection 0.4 mg 0.4 mg, Intramuscular, EVERY 2 MIN PRN, opioid reversal, Starting on Sun04/05/25 at 2012, Administer intramuscular if an intravenous route is not available and notify provider when administered. For unintended sedation or respiratory depression if all of the below criteria are met: ~ respiratory rate LESS than or EQUAL to 8. ~ SaO2 less than 92% and or/end-tidal CO2 is greater than 50. ~ the patient is receiving an opioid, has unintended sedation assessed as RASS (-4) or (-5) and patient is currently not on mechanical ventilation. RASS scale (-4) is deep sedation with no response to voice but movement or eye opening to physical stimulation. RASS scale (-5) is unarousable. Patient Monitoring Once the patient has demonstrated a response to the naloxone, continue to monitor respiratory rate, depth, oxygen saturation and end-tidal CO2 (if available) every 15 minutes x 2, then every 30 minutes x 2, then every 1 hour x 1 after each naloxone dose. Consider transfer to ICU if patient respiratory parameters have not improved after 4 naloxone doses. nitrous oxide/oxygen 50/50 blend Inhalation, CONTINUOUS PRN, anxiety and/or pain, Starting on Sun04/05/25 at 2004, Per Policy. Discontinue nitrous oxide when anesthesia arrives for epidural placement unless instructed otherwise by the Anesthesia Provider. ~To be self-administered by patient. Dose does not need to be documented. ~Nitrous oxide is contraindicated if the patient has received opioid, benzodiazepine, or other sedative medication in the previous 2 hours. This does not include patients on a stable dose of methadone or suboxone. ~Precaution: If patient has received other medications with sedative side effects such as diphenhydramine, hydroxyzine, prochlorperazine or zolpidem assess level of sedation carefully before starting nitrous oxide., Intra + Post ondansetron (ZOFRAN) injection 4 mg 4 mg, Intravenous, EVERY 6 HOURS PRN, nausea/vomiting - 2nd line, Administer over 2-5 Minutes, Starting on Sun04/05/25 at 2003, This is Step 2 of OB nausea and vomiting management. Use IV if not tolerating oral therapy. Give if nausea not resolved 30 minutes after giving metoclopramide (REGLAN). If nausea is not resolved in 15 minutes, go to Step 3 (Compazine)., Intrapartum $Given 04/08/2025 7:38 PM CDT 4 mg $Given 04/08/2025 1:15 PM CDT 4 mg oxytocin (PITOCIN) 30 units in 500 mL 0.9% NaCl infusion 100-340 mL/hr, Intravenous, CONTINUOUS PRN, After delivery to prevent uterine atony, Starting on Sun04/05/25 at 2003, Give after delivery to prevent uterine atony per provider direction. Administer 340 mL/hr over 30 minutes for a total of 170 mL, then decrease to 100 mL/hr until infusion complete (about 3.5 hours) or per provider direction. Start new bag at delivery. Discontinue or saline lock peripheral IV per nurse discretion., Rate/Dose Change 04/08/2025 10:23 PM CDT 340 mL/hr 340 mL/hr oxytocin (PITOCIN) 30 units in 500 mL 0.9% NaCl infusion 1-24 karina-units/min (1-24 mL/hr), Intravenous, CONTINUOUS, Starting on Sun04/07/25 at 2000, Start infusion at 2 karina-units/min. Increase by 2 karina-units/min every 30 minutes until contractions are 2-3 minutes apart, lasting 45 to 60 seconds in duration to achieve labor progress. Max rate is 24 milliunits/min. Do NOT go higher without a provider order. Follow Management of Uterine Activity Algorithm for dose decreases. If oxytocin (PITOCIN) infusion is discontinued and off for less than 30 minutes, restart infusion at half of previous oxytocin (PITOCIN) rate. If oxytocin (PITOCIN) infusion has been discontinued equal to or greater than 30 minutes, begin at initial dose. IF another cervical ripening medication is ordered wait 60 minutes after oxytocin (PITOCIN) infusion is stopped before administering cervical ripening medication., Intrapartum Rate/Dose Change 04/08/2025 12:20 PM CDT 18 karina-units/min 18 mL/hr Rate/Dose Change 04/08/2025 10:45 AM CDT 16 karina-units/mi n 16 mL/hr Rate/Dose Change 04/08/2025 9:00 AM CDT 14 karina-units/min 14 mL/hr oxytocin (PITOCIN) 30 units in 500 mL 0.9% NaCl infusion 340 mL/hr, Intravenous, CONTINUOUS PRN, for hemorrhage (PPH) UNTIL bleeding subsided., Starting on Sun04/08/25 at 2256, When bleeding subsides decrease rate to 100 mL/hr. Notify provider immediately when infusion begun. Oxytocin is first line medication for PPH., oxytocin (PITOCIN) injection 10 Units 10 Units, Intramuscular, ONCE PRN, for hemorrhage (PPH), IF no IV access is available., Starting on Sun04/08/25 at 2256, For 1 dose, Notify provider immediately when injection given. Oxytocin is first line medication for PPH., polyethylene glycol (MIRALAX) Packet 17 g 17 g, Oral, DAILY PRN, constipation, Starting on Sun04/08/25 at 2258, Use IF senna-docusate not effective. 1 Packet = 17 grams. Mix each gram with at least 1/2 ounce (15 mL) of water - 8 ounces for 17 g dose, 4 ounces for 8.5 g dose, 2 ounces for 4 g dose. Follow with the same volume of water. Hold for loose stools unless being administered as part of a bowel prep regimen or bowel clean out., senna-docusate (SENOKOT-S/PERICOLACE) 8.6-50 MG per tablet 2 tablet 2 tablet, Oral, AT BEDTIME PRN, constipation, Starting on Sun04/08/25 at 2258, Hold for loose stools., $Given 04/09/2025 9:10 PM CDT 2 tablets sodium chloride (PF) 0.9% PF flush 3 mL 3 mL, Intracatheter, EVERY 8 HOURS SCHEDULED, First dose on Sun04/05/25 at 2200, to lock peripheral IV dormant line, Intra + Post $Given 04/09/2025 10:55 PM CDT 3 mLs $Given 04/09/2025 5:14 PM CDT 3 mLs $Given 04/07/2025 12:08 PM CDT 3 mLs sodium chloride (PF) 0.9% PF flush 3 mL 3 mL, Intracatheter, EVERY 1 MIN PRN, line flush, other, to ensure patency or to lock dormant line, Starting on Sun04/05/25 at 2005, Intra + Post tranexamic acid 1 g in 100 mL NS IV bag (premix) 1 g, Intravenous, Administer over 10 Minutes, EVERY 30 MIN PRN, Post- hemorrhage (PPH), Starting on Sun04/08/25 at 2256, For 2 doses, Provider consultation REQUIRED and MUST be administered as soon as the ONSET of bleeding AND within 3 hours of regardless of cause of the PPH (atony OR laceration). IF bleeding continues, a 2nd dose may be administered after 30 minutes. IF concern for DIC (Disseminated Intravascular Coagulation), obtain coagulation studies PRIOR to administration. Contraindications include: history of PE (Pulmonary Emboli), DVT (Deep Vein Thrombosis) and current Subarachnoid hemorrhage and active DIC. Administer only if directed by provider. Each 1 gram to be infused over 10 minutes., documented in this encounter Active and Recently Administered Medications Times are shown in CDT. Scheduled Medication Order 04/08/2025 04/09/2025 04/10/2025 fentaNYL (SUBLIMAZE) 2 mcg/mL, BUPivacaine (MARCAINE) 0.125% in NS premix for PCEA (CANCELED) PCEA dose (mL): 5, PCEA Lockout Interval (min): 15 minutes, Hour Limit (mL): 25, Continuous Rate (Basal Rate) (mL/hr): 10, Initial Set-up verified by: Ivy Womack Rn, Absolutely no anticoagulants, thrombolytics or antiplatelet medications or other opioid analgesics or other sedatives without prior notification of anesthesiology. For CADD cassettes, pharmacy to send epidural tubing set., Routine 1217 ($New Syringe/Cartridge - Provider: Ivy Womack RN)2053 ($New Syringe/Cartridge - Provider: Maura Camacho, RN)2200 (Canceled Entry - Provider: Rosibel Cantu MD - Comment: Automatically canceled at discontinue of medication order)2235 (Stopped - Provider: Maura Camacho RN) labetalol (NORMODYNE) tablet 200 mg 200 mg, Oral, 3 TIMES DAILY, First dose on Sun04/05/25 at 2100 0850 ($Given - Provider: Ivy Womack RN)1719 ($Given - Provider: Ivy Womack RN)2252 ($Given - Provider: Maura Camacho, TYLER) 1008 ($Given - Provider: Dianne Sloan RN)1713 ($Given - Provider: Aliza Souza)2100 (Not Given - Provider: Tere Hamlin RN - Reason: Order parameters not met) 0102 ($Given - Provider: Tere Hamlin RN)1056 ($Given - Provider: Esha Villegas, TYLER) methylcellulose (CITRUCEL) tablet 1,000 mg 1,000 mg, Oral, DAILY, First dose on Raven 04/09/25 at 0900, Administer with 8 ounces of liquid., 1008 ($Given - Provider: Dianne Sloan, TYLER) 1056 ($Given - Provider: Esha Villegas, TYLER) sodium chloride (PF) 0.9% PF flush 3 mL 3 mL, Intracatheter, EVERY 8 HOURS SCHEDULED, First dose on 04/05/25 at 2200, to lock peripheral IV dormant line, Intra + Post 0745 (Not Given - Provider: Ivy Womack RN - Reason: IV Infusing)1716 (Not Given - Provider: Ivy Womack RN - Reason: IV Infusing)2324 (Canceled Entry - Provider: Maura Camacho RN) 0600 (Not Given - Provider: Dianne Sloan RN - Reason: Other)1714 ($Given - Provider: Aliza Souza)2255 ($Given - Provider: Tere Hamlin RN) 0600 (Canceled Entry - Provider: Orders Generic Provider - Comment: Automatically canceled at discontinue of medication order)1400 (Canceled Entry - Provider: Orders Generic Provider - Comment: Automatically canceled at discontinue of medication order) Continuous Medication Order 04/08/2025 04/09/2025 04/10/2025 oxytocin (PITOCIN) 30 units in 500 mL 0.9% NaCl infusion (CANCELED) 1-24 karina-units/min (1-24 mL/hr), Intravenous, CONTINUOUS, Starting on Sun04/07/25 at 2000, Start infusion at 2 karina-units/min. Increase by 2 karina-units/min every 30 minutes until contractions are 2-3 minutes apart, lasting 45 to 60 seconds in duration to achieve labor progress. Max rate is 24 milliunits/min. Do NOT go higher without a provider order. Follow Management of Uterine Activity Algorithm for dose decreases. If oxytocin (PITOCIN) infusion is discontinued and off for less than 30 minutes, restart infusion at half of previous oxytocin (PITOCIN) rate. If oxytocin (PITOCIN) infusion has been discontinued equal to or greater than 30 minutes, begin at initial dose. IF another cervical ripening medication is ordered wait 60 minutes after oxytocin (PITOCIN) infusion is stopped before administering cervical ripening medication., Intrapartum 0023 (Rate/Dose Change - Provider: Maura Camacho RN)0143 (Rate/Dose Change - Provider: Maura Camacho RN)0225 (Rate/Dose Change - Provider: Maura Camacho RN)0256 (Rate/Dose Change - Provider: Maura Camacho RN)0412 (Rate/Dose Change - Provider: Maura Camacho RN)0445 (Rate/Dose Change - Provider: Maura Camacho RN)0656 (Rate/Dose Change - Provider: Maura Camacho RN)0730 (Rate/Dose Change - Provider: Ivy Womack RN)0800 (Rate/Dose Change - Provider: Ivy Womack RN)0900 (Rate/Dose Change - Provider: Ivy Womack, TYLER)1045 (Rate/Dose Change - Provider: Rosibel Corey RN)1220 (Rate/Dose Change - Provider: Ivy Womack, TYLER) PRN Medication Order 04/08/2025 04/09/2025 04/10/2025 acetaminophen (TYLENOL) tablet 650 mg 650 mg, Oral, EVERY 4 HOURS PRN, fever, other, second line or per patient preference for mild to moderate pain management, Starting on Sun04/08/25 at 2256, May give concurrently or alternating with ibuprofen. Maximum acetaminophen dose from all sources = 75 mg/kg/day not to exceed 4 grams/day., 0144 ($Given - Provider: Tere Hamlin, RN)0554 ($Given - Provider: Tere Hamlin RN)1008 ($Given - Provider: Dianne Sloan, RN)1306 ($Given - Provider: Dianne Sloan, RN)1712 ($Given - Provider: Aliza Souza)2104 ($Given - Provider: Tere Hamlin RN) 0102 ($Given - Provider: Tere Hamlin RN)0617 ($Given - Provider: Tere Hamlin, TYLER)1057 ($Given - Provider: Esha Villegas RN) bisacodyl (DULCOLAX) suppository 10 mg 10 mg, Rectal, DAILY PRN, constipation, Starting on Sun04/08/25 at 2258, Use IF polyethylene glycol not effective. Do not administer if patient has 3rd or 4th degree lacerations. Hold for loose stools., carboprost (HEMABATE) injection 250 mcg(Linked Group 1) 250 mcg, Intramuscular, EVERY 15 MIN PRN, other, ONLY for uterine atony with significant bleeding POST-DELIVERY, Starting on Sun04/08/25 at 2256, Notify provider IF uterine atony and clarify with provider medication preference. Administer only if directed by provider. Give with caution in patients with asthma, active pulmonary, hepatic, renal or cardiovascular disease., fentaNYL (PF) (SUBLIMAZE) injection 100 mcg (CANCELED) 100 mcg, Intravenous, EVERY 1 HOUR PRN, other, desired pain relief based on labor coping, Starting on Sun04/05/25 at 2005, Hold dose for analgesic side effects. Perform RASS scoring with pain assessment. Notify provider to assess for uncontrolled pain or analgesic side effects. If maximum total dose of 200 mcg in 2 hour period is given, contact provider for further orders. Maximum total dose of 400 mcg over an 8 hour period. If respiratory rate LESS THAN 8 or maternal HR LESS THAN 50, call provider., Intrapartum 1011 ($Given - Provider: Rosibel Corey RN) hydrocortisone (Perianal) (ANUSOL-HC) 2.5 % cream Rectal, 3 TIMES DAILY PRN, hemorrhoids, Starting on Sun04/08/25 at 2256, Apply to hemorrhoids. Send only if nurse requests., hydrOXYzine HCl (ATARAX) tablet 100 mg 100 mg, Oral, ONCE PRN, sleep, Starting on Sun04/06/25 at 2153, For 1 dose ibuprofen (ADVIL/MOTRIN) tablet 800 mg 800 mg, Oral, EVERY 6 HOURS PRN, other, first line or per patient preference for mild to moderate pain management, Starting on Sun04/08/25 at 2256, Start 6 hours after ketorolac is completed (if ordered). May give concurrently or alternating with acetaminophen. Max dose: 3200 mg/day Give with food., 0554 ($Given - Provider: Tere Hamlin RN)1306 ($Given - Provider: Dianne Sloan RN)1913 ($Given - Provider: Dianne Sloan RN) 0102 ($Given - Provider: Tere Hamlin, TYLER)0655 ($Given - Provider: Tere Hamlin, TYLER) ketorolac (TORADOL) injection 15 mg (COMPLETED)(Linked Group 2) 15 mg, Intravenous, ONCE PRN, other, moderate pain immediately post-delivery, Starting on Sun04/05/25 at 2003, For 1 dose, Can cause pain on injection. If ordered intravenously (IV) : administer through a running maintenance fluid over 1 minute followed by a flush. If patient complains of pain on injection, may dilute 15-30 mg in 5 mL and push over 1 to 2 minutes., 2253 ($Given - Provider: Maura Camacho RN) lactated ringers BOLUS 500 mL (CANCELED) Intravenous, 500 mL, EVERY 1 HOUR PRN, other, per policy for intrauterine corrective measures or excessive uterine activity., Starting on 04/05/25 at 2003, For 5 doses, Intrapartum 0130 (Rate/Dose Change - Provider: Maura Camacho RN)195 (Rate/Dose Change - Provider: Maura Camacho RN) lactated ringers infusion (CANCELED) at 25-125 mL/hr, Intravenous, CONTINUOUS PRN, Titrate lactated ringers rate to obtain total IV intake of 125 mL/hr. Total IV fluids should not exceed 125 mL/hr without provider order., Intrapartum, Starting on Sun04/07/25 at 1945, Until Sun04/08/25 at 2258 0202 ($New Bag - Provider: Maura Camacho RN) loperamide (IMODIUM) capsule 2 mg 2 mg, Oral, EVERY 2 HOURS PRN, other, after each loose stool, Starting on Sun04/08/25 at 2256, May give only after delivery. For diarrhea occurring after carboprost (HEMABATE) administration ONLY. Maximum 16 mg/day. Do NOT give stool softeners or laxatives until diarrhea is resolved., loperamide (IMODIUM) capsule 4 mg(Linked Group 1) 4 mg, Oral, ONCE PRN, other, Give with first dose of carboprost (HEMABATE), Starting on Sun04/08/25 at 2256, For 1 dose, May give only after delivery., methylergonovine (METHERGINE) injection 200 mcg 200 mcg, Intramuscular, EVERY 2 HOURS PRN, ONLY for uterine atony with significant bleeding POST-DELIVERY, Starting on Sun04/08/25 at 2256, Notify provider IF uterine atony and clarify with provider medication preference. Administer only if directed by provider. Contraindicated if Blood Pressure greater than 140/90, preeclampsia, or hypertension., metoclopramide (REGLAN) injection 10 mg (CANCELED)(Linked Group 3) 10 mg, Intravenous, Administer over 2 Minutes, EVERY 6 HOURS PRN, nausea/vomiting - 1st line, Starting on Sun04/05/25 at 2004, This is Step 1 of OB nausea and vomiting management. Use IV if not tolerating oral therapy. If nausea is not resolved in 30 minutes, go to Step 2 (Zofran). Avoid use if patient has full bowel obstruction or perforation., Intrapartum 1719 ($Given - Provider: Ivy Womack RN) misoprostol (CYTOTEC) tablet 400 mcg(Linked Group 4) 400 mcg, Oral, GIVE ONCE PRN AND REPEAT ACCORDING TO INSTRUCTIONS, post- hemorrhage, Starting on Sun04/08/25 at 2256, Administer only if directed by provider. Max administrations: 4 doses, misoprostol (CYTOTEC) tablet 800 mcg(Linked Group 4) 800 mcg, Rectal, GIVE ONCE PRN AND REPEAT ACCORDING TO INSTRUCTIONS, post- hemorrhage, Starting on Sun04/08/25 at 2256, Give rectally if unable to take oral without complications. Administer only if directed by provider. Max administrations: 4 doses., nalbuphine (NUBAIN) injection 2.5-5 mg 2.5-5 mg, Intravenous, EVERY 6 HOURS PRN, other, for pruritus, Starting on Sun04/06/25 at 1432, Give 2.5 mg initially. If pruritus persists after 30 minutes, may give additional 2.5 mg. If effective, then repeat effective dose Q6H PRN pruritus., Intra + Post naloxone (NARCAN) injection 0.2 mg(Linked Group 5) 0.2 mg, Intravenous, EVERY 2 MIN PRN, opioid reversal, Starting on Sun04/05/25 at 2012, Administer intravenous route when available and notify provider when administered. For unintended sedation or respiratory depression if all of the below criteria are met: ~ respiratory rate LESS than or EQUAL to 8. ~SaO2 less than 92% and or/end-tidal CO2 is greater than 50. ~ the patient is receiving an opioid, has unintended sedations assessed as RASS (-3), and is currently not on mechanical ventilation. RASS scale moderate (-3) is movement or eye opening to voice but no eye contact. Patient Monitoring Once the patient has demonstrated a response to the naloxone, continue to monitor respiratory rate, depth, oxygen saturation and end-tidal CO2 (if available) every 15 minutes x 2, then every 30 minutes x 2, then every 1 hour x 1 after each naloxone dose. Consider transfer to ICU if patient respiratory parameters have not improved after 4 naloxone doses. naloxone (NARCAN) injection 0.2 mg(Linked Group 5) 0.2 mg, Intramuscular, EVERY 2 MIN PRN, opioid reversal, Starting on Sun04/05/25 at 2012, Administer intramuscular if an intravenous route is not available and notify provider when administered. For unintended sedation or respiratory depression if all of the below criteria are met: ~ respiratory rate LESS than or EQUAL to 8. ~SaO2 less than 92% and or/end-tidal CO2 is greater than 50. ~ the patient is receiving an opioid, has unintended sedations assessed as RASS (-3), and is currently not on mechanical ventilation. RASS scale moderate (-3) is movement or eye opening to voice but no eye contact. Patient Monitoring Once the patient has demonstrated a response to the naloxone, continue to monitor respiratory rate, depth, oxygen saturation and end-tidal CO2 (if available) every 15 minutes x 2, then every 30 minutes x 2, then every 1 hour x 1 after each naloxone dose. Consider transfer to ICU if patient respiratory parameters have not improved after 4 naloxone doses. naloxone (NARCAN) injection 0.4 mg(Linked Group 5) 0.4 mg, Intravenous, EVERY 2 MIN PRN, opioid reversal, Starting on Sun04/05/25 at 2012, Administer intravenous route when available and notify provider when administered. For unintended sedation or respiratory depression if all of the below criteria are met: ~ respiratory rate LESS than or EQUAL to 8. ~ SaO2 less than 92% and or/end-tidal CO2 is greater than 50. ~ the patient is receiving an opioid, has unintended sedation assessed as RASS (-4) or (-5) and patient is currently not on mechanical ventilation. RASS scale (-4) is deep sedation with no response to voice but movement or eye opening to physical stimulation. RASS scale (-5) is unarousable. Patient Monitoring Once the patient has demonstrated a response to the naloxone, continue to monitor respiratory rate, depth, oxygen saturation and end-tidal CO2 (if available) every 15 minutes x 2, then every 30 minutes x 2, then every 1 hour x 1 after each naloxone dose. Consider transfer to ICU if patient respiratory parameters have not improved after 4 naloxone doses. naloxone (NARCAN) injection 0.4 mg(Linked Group 5) 0.4 mg, Intramuscular, EVERY 2 MIN PRN, opioid reversal, Starting on Sun04/05/25 at 2012, Administer intramuscular if an intravenous route is not available and notify provider when administered. For unintended sedation or respiratory depression if all of the below criteria are met: ~ respiratory rate LESS than or EQUAL to 8. ~ SaO2 less than 92% and or/end-tidal CO2 is greater than 50. ~ the patient is receiving an opioid, has unintended sedation assessed as RASS (-4) or (-5) and patient is currently not on mechanical ventilation. RASS scale (-4) is deep sedation with no response to voice but movement or eye opening to physical stimulation. RASS scale (-5) is unarousable. Patient Monitoring Once the patient has demonstrated a response to the naloxone, continue to monitor respiratory rate, depth, oxygen saturation and end-tidal CO2 (if available) every 15 minutes x 2, then every 30 minutes x 2, then every 1 hour x 1 after each naloxone dose. Consider transfer to ICU if patient respiratory parameters have not improved after 4 naloxone doses. nitrous oxide/oxygen 50/50 blend Inhalation, CONTINUOUS PRN, anxiety and/or pain, Starting on 04/05/25 at 2004, Per Policy. Discontinue nitrous oxide when anesthesia arrives for epidural placement unless instructed otherwise by the Anesthesia Provider. ~To be self-administered by patient. Dose does not need to be documented. ~Nitrous oxide is contraindicated if the patient has received opioid, benzodiazepine, or other sedative medication in the previous 2 hours. This does not include patients on a stable dose of methadone or suboxone. ~Precaution: If patient has received other medications with sedative side effects such as diphenhydramine, hydroxyzine, prochlorperazine or zolpidem assess level of sedation carefully before starting nitrous oxide., Intra + Post ondansetron (ZOFRAN) injection 4 mg (CANCELED)(Linked Group 6) 4 mg, Intravenous, EVERY 6 HOURS PRN, nausea/vomiting - 2nd line, Administer over 2-5 Minutes, Starting on 04/05/25 at 2003, This is Step 2 of OB nausea and vomiting management. Use IV if not tolerating oral therapy. Give if nausea not resolved 30 minutes after giving metoclopramide (REGLAN). If nausea is not resolved in 15 minutes, go to Step 3 (Compazine)., Intrapartum 1315 ($Given - Provider: Ivy Womack RN)1938 ($Given - Provider: Maura Camacho RN) oxytocin (PITOCIN) 30 units in 500 mL 0.9% NaCl infusion (CANCELED) 100-340 mL/hr, Intravenous, CONTINUOUS PRN, After delivery to prevent uterine atony, Starting on 04/05/25 at 2003, Give after delivery to prevent uterine atony per provider direction. Administer 340 mL/hr over 30 minutes for a total of 170 mL, then decrease to 100 mL/hr until infusion complete (about 3.5 hours) or per provider direction. Start new bag at delivery. Discontinue or saline lock peripheral IV per nurse discretion., 2222 (Rate/Dose Change - Provider: Maura Camacho RN) oxytocin (PITOCIN) 30 units in 500 mL 0.9% NaCl infusion 340 mL/hr, Intravenous, CONTINUOUS PRN, for hemorrhage (PPH) UNTIL bleeding subsided., Starting on Sun04/08/25 at 2256, When bleeding subsides decrease rate to 100 mL/hr. Notify provider immediately when infusion begun. Oxytocin is first line medication for PPH., oxytocin (PITOCIN) injection 10 Units 10 Units, Intramuscular, ONCE PRN, for hemorrhage (PPH), IF no IV access is available., Starting on Sun04/08/25 at 2256, For 1 dose, Notify provider immediately when injection given. Oxytocin is first line medication for PPH., polyethylene glycol (MIRALAX) Packet 17 g 17 g, Oral, DAILY PRN, constipation, Starting on Sun04/08/25 at 2258, Use IF senna-docusate not effective. 1 Packet = 17 grams. Mix each gram with at least 1/2 ounce (15 mL) of water - 8 ounces for 17 g dose, 4 ounces for 8.5 g dose, 2 ounces for 4 g dose. Follow with the same volume of water. Hold for loose stools unless being administered as part of a bowel prep regimen or bowel clean out., senna-docusate (SENOKOT-S/PERICOLACE) 8.6-50 MG per tablet 2 tablet 2 tablet, Oral, AT BEDTIME PRN, constipation, Starting on Sun04/08/25 at 2258, Hold for loose stools., 2109 ($Given - Provider: Tere Hamiln RN) sodium chloride (PF) 0.9% PF flush 3 mL 3 mL, Intracatheter, EVERY 1 MIN PRN, line flush, other, to ensure patency or to lock dormant line, Starting on Sun04/05/25 at 2005, Intra + Post tranexamic acid 1 g in 100 mL NS IV bag (premix) 1 g, Intravenous, Administer over 10 Minutes, EVERY 30 MIN PRN, Post- hemorrhage (PPH), Starting on Sun04/08/25 at 2256, For 2 doses, Provider consultation REQUIRED and MUST be administered as soon as the ONSET of bleeding AND within 3 hours of regardless of cause of the PPH (atony OR laceration). IF bleeding continues, a 2nd dose may be administered after 30 minutes. IF concern for DIC (Disseminated Intravascular Coagulation), obtain coagulation studies PRIOR to administration. Contraindications include: history of PE (Pulmonary Emboli), DVT (Deep Vein Thrombosis) and current Subarachnoid hemorrhage and active DIC. Administer only if directed by provider. Each 1 gram to be infused over 10 minutes., Linked Groups Order Group 1: carboprost (HEMABATE) injection 250 mcgJump to med 250 mcg, Intramuscular, EVERY 15 MIN PRN, other, ONLY for uterine atony with significant bleeding POST-DELIVERY, Starting on Sun04/08/25 at 2256, Notify provider IF uterine atony and clarify with provider medication preference. Administer only if directed by provider. Give with caution in patients with asthma, active pulmonary, hepatic, renal or cardiovascular disease., And loperamide (IMODIUM) capsule 4 mgJump to med 4 mg, Oral, ONCE PRN, other, Give with first dose of carboprost (HEMABATE), Starting on Sun04/08/25 at 2256, For 1 dose, May give only after delivery., Group 2: ketorolac (TORADOL) injection 15 mg (COMPLETED)Jump to med 15 mg, Intravenous, ONCE PRN, other, moderate pain immediately post-delivery, Starting on Sun04/05/25 at 2003, For 1 dose, Can cause pain on injection. If ordered intravenously (IV) : administer through a running maintenance fluid over 1 minute followed by a flush. If patient complains of pain on injection, may dilute 15-30 mg in 5 mL and push over 1 to 2 minutes., Or ketorolac (TORADOL) injection 15 mg (COMPLETED) 15 mg, Intramuscular, ONCE PRN, other, moderate pain immediately post-delivery, Starting on Sun04/05/25 at 2003, For 1 dose, Can cause pain on injection. If ordered intravenously (IV) : administer through a running maintenance fluid over 1 minute followed by a flush. If patient complains of pain on injection, may dilute 15- 30 mg in 5 mL and push over 1 to 2 minutes., Or ibuprofen (ADVIL/MOTRIN) tablet 800 mg (COMPLETED) 800 mg, Oral, ONCE PRN, other, mild to moderate pain immediately post-delivery, Starting on Sun04/05/25 at 2003, For 1 dose, Do not give within 6 hours of ketorolac dose. Give with food., Group 3: metoclopramide (REGLAN) tablet 10 mg (CANCELED) 10 mg, Oral, EVERY 6 HOURS PRN, nausea/vomiting - 1st line, Starting on Sun04/05/25 at 2003, This is Step 1 of OB nausea and vomiting management. Preferred route. If nausea is not resolved in 30 minutes, go to Step 2 (Zofran) Avoid use if patient has full bowel obstruction or perforation., Intrapartum Or metoclopramide (REGLAN) injection 10 mg (CANCELED)Jump to med 10 mg, Intravenous, Administer over 2 Minutes, EVERY 6 HOURS PRN, nausea/vomiting - 1st line, Starting on Sun04/05/25 at 2003, This is Step 1 of OB nausea and vomiting management. Use IV if not tolerating oral therapy. If nausea is not resolved in 30 minutes, go to Step 2 (Zofran). Avoid use if patient has full bowel obstruction or perforation., Intrapartum Group 4: misoprostol (CYTOTEC) tablet 400 mcgJump to med 400 mcg, Oral, GIVE ONCE PRN AND REPEAT ACCORDING TO INSTRUCTIONS, post- hemorrhage, Starting on Sun04/08/25 at 2256, Administer only if directed by provider. Max administrations: 4 doses, Or misoprostol (CYTOTEC) tablet 800 mcgJump to med 800 mcg, Rectal, GIVE ONCE PRN AND REPEAT ACCORDING TO INSTRUCTIONS, post- hemorrhage, Starting on Sun04/08/25 at 2256, Give rectally if unable to take oral without complications. Administer only if directed by provider. Max administrations: 4 doses., Group 5: naloxone (NARCAN) injection 0.2 mgJump to med 0.2 mg, Intravenous, EVERY 2 MIN PRN, opioid reversal, Starting on Sun04/05/25 at 2012, Administer intravenous route when available and notify provider when administered. For unintended sedation or respiratory depression if all of the below criteria are met: ~ respiratory rate LESS than or EQUAL to 8. ~SaO2 less than 92% and or/end-tidal CO2 is greater than 50. ~ the patient is receiving an opioid, has unintended sedations assessed as RASS (-3), and is currently not on mechanical ventilation. RASS scale moderate (-3) is movement or eye opening to voice but no eye contact. Patient Monitoring Once the patient has demonstrated a response to the naloxone, continue to monitor respiratory rate, depth, oxygen saturation and end-tidal CO2 (if available) every 15 minutes x 2, then every 30 minutes x 2, then every 1 hour x 1 after each naloxone dose. Consider transfer to ICU if patient respiratory parameters have not improved after 4 naloxone doses. Or naloxone (NARCAN) injection 0.4 mgJump to med 0.4 mg, Intravenous, EVERY 2 MIN PRN, opioid reversal, Starting on Sun04/05/25 at 2012, Administer intravenous route when available and notify provider when administered. For unintended sedation or respiratory depression if all of the below criteria are met: ~ respiratory rate LESS than or EQUAL to 8. ~ SaO2 less than 92% and or/end-tidal CO2 is greater than 50. ~ the patient is receiving an opioid, has unintended sedation assessed as RASS (-4) or (-5) and patient is currently not on mechanical ventilation. RASS scale (-4) is deep sedation with no response to voice but movement or eye opening to physical stimulation. RASS scale (-5) is unarousable. Patient Monitoring Once the patient has demonstrated a response to the naloxone, continue to monitor respiratory rate, depth, oxygen saturation and end-tidal CO2 (if available) every 15 minutes x 2, then every 30 minutes x 2, then every 1 hour x 1 after each naloxone dose. Consider transfer to ICU if patient respiratory parameters have not improved after 4 naloxone doses. Or naloxone (NARCAN) injection 0.2 mgJump to med 0.2 mg, Intramuscular, EVERY 2 MIN PRN, opioid reversal, Starting on Sun04/05/25 at 2012, Administer intramuscular if an intravenous route is not available and notify provider when administered. For unintended sedation or respiratory depression if all of the below criteria are met: ~ respiratory rate LESS than or EQUAL to 8. ~SaO2 less than 92% and or/end-tidal CO2 is greater than 50. ~ the patient is receiving an opioid, has unintended sedations assessed as RASS (-3), and is currently not on mechanical ventilation. RASS scale moderate (-3) is movement or eye opening to voice but no eye contact. Patient Monitoring Once the patient has demonstrated a response to the naloxone, continue to monitor respiratory rate, depth, oxygen saturation and end-tidal CO2 (if available) every 15 minutes x 2, then every 30 minutes x 2, then every 1 hour x 1 after each naloxone dose. Consider transfer to ICU if patient respiratory parameters have not improved after 4 naloxone doses. Or naloxone (NARCAN) injection 0.4 mgJump to med 0.4 mg, Intramuscular, EVERY 2 MIN PRN, opioid reversal, Starting on 04/05/25 at 2012, Administer intramuscular if an intravenous route is not available and notify provider when administered. For unintended sedation or respiratory depression if all of the below criteria are met: ~ respiratory rate LESS than or EQUAL to 8. ~ SaO2 less than 92% and or/end-tidal CO2 is greater than 50. ~ the patient is receiving an opioid, has unintended sedation assessed as RASS (-4) or (-5) and patient is currently not on mechanical ventilation. RASS scale (-4) is deep sedation with no response to voice but movement or eye opening to physical stimulation. RASS scale (-5) is unarousable. Patient Monitoring Once the patient has demonstrated a response to the naloxone, continue to monitor respiratory rate, depth, oxygen saturation and end-tidal CO2 (if available) every 15 minutes x 2, then every 30 minutes x 2, then every 1 hour x 1 after each naloxone dose. Consider transfer to ICU if patient respiratory parameters have not improved after 4 naloxone doses. Group 6: ondansetron (ZOFRAN ODT) ODT tab 4 mg (CANCELED) 4 mg, Oral, EVERY 6 HOURS PRN, nausea/vomiting - 2nd line, Starting on Sun04/05/25 at 2003, This is Step 2 of OB nausea and vomiting management. Preferred route. Give If nausea not resolved in 30 minutes after giving metoclopramide (REGLAN). If nausea is not resolved in 15 minutes, go to Step 3 (Compazine). With dry hands, peel back foil backing and gently remove tablet. Do not push oral disintegrating tablet through foil backing. Administer immediately on tongue and oral disintegrating tablet dissolves in seconds, then swallow with saliva. Liquid not required., Intrapartum Or ondansetron (ZOFRAN) injection 4 mg (CANCELED)Jump to med 4 mg, Intravenous, EVERY 6 HOURS PRN, nausea/vomiting - 2nd line, Administer over 2-5 Minutes, Starting on 04/05/25 at 2004, This is Step 2 of OB nausea and vomiting management. Use IV if not tolerating oral therapy. Give if nausea not resolved 30 minutes after giving metoclopramide (REGLAN). If nausea is not resolved in 15 minutes, go to Step 3 (Compazine)., Intrapartum documented in this encounter Care Teams Hoop Machine Operator Relationship Specialty Start Date End Date No Ref-Primary, Physician PCP - General 03/30/25 documented as of this encounter
--- OUTSIDE RECORDS SUMMARY | 2025-04-08 11:58 | XMS_ITS | Encounter Summary ---
Author Organization University Address [facility] [place] [address] Care Team Providers Care Security Intelligence Analyst Name Role Phone No Ref-Primary, Physician Primary Care Provider Reason for Visit * Auth/Cert (Routine) Specialty Diagnoses / Procedures Referred By Contmarisol t Referred To Contact slat grader Diagnoses Indication for care in labor or delivery Ximena Ott MD [facility] [address] [place] [address] Phone: tel: fax: [facility] [address] [place] [address] Phone: tel: fax: Referral ID Status Reason Start Date Expiration Date Visits Re quested Visits Authorized [id number] 1 1 Encounter Details Date Type Department Care Team (Late st Contact Info) Description 04/08/2025 11:58 AM CDT Anesthesia Event [facility] [address] [place] [address] Bel Erazo MD [facility] ANESTHESIA [address] [facility] [address] [place] [address] Juan Manuel Salvador MD [facility] ANESTHESIA [address] [place], [place] [address] Anesthesia Record Procedure Summary Procedure Name Responsible Anesthesiologist Anesthesia Start Time Anesthesia Stop Time LABOR ANALGESIA Bel Erazo MD 04/08/25 1158 04/08/25 2220 Events Date Time Event Comment 04/08/2025 1158 An Start Anesthesia Star t is defined as when the anesthesia provider assumed care, began anesthesia prep, remained continuously present with the patient, and excludes all time for performing the pre-anesthesia evaluation. The Pre-Anesthesia Evaluation was completed before Anesthesia Start. 1158 AN FACE TIME IN 1217 An Facetime Out 1225 2220 An Stop Electronically signed by Maura Bonner RN on April 08, 2025 10:20 PM Meds Name Total 0.25% Bupivacaine PF (Epidural) 10 mL 0.125% Bupivacaine + 2 mcg/mL Fentanyl v ia CADD (Epidural) 10 mL * Agents No agents on file. * Blood No blood administrations on file. Lines, Drains, and Airways Type Details Placement Removal Peripheral IV 04/07/25; 2318; 18 G ; Right, Posterior; Upper forearm; 1; Tolerated well 04/07/25 2318 by Maura Bonner RN 04/10/25 0929 by Esha Villegas RN Epidural 04/08/25; 1158 (anderson sarah via procedure documentation); Physician; Epidural; L3-4; Maura Bonner RN; Tip intact 04/08/25 1158 by Bel Erazo MD 04/09/25 0102 by Maura Bonner RN Urinary Drain 04/08/25; 1300; Uret hral Catheter; Epidural/Intrathecal catheter; 16 fr; Nursing driven removal protocol 04/08/25 1300 by Ivy Womack, TYLER 04/08/252026 by Maura Bonner RN documented in this encounter Social History Tobacco Use Types Packs/Day Years Used Date Smoking Tobacco: Never Smokeless Tobacco: Never Alcohol Use Standard Drinks/Week Comments Not Currently 0 (1 standard drink = 0.6 oz pur e alcohol) Erie Depression Scale Answer Date Recorded Erie Depression Scale Total 5 04/10/2025 The thought [...] in an abandoned building, in an overnight usp, or couch-surfing.) Yes 04/05/2025 Are you worried [...] on file documented as of this encounter OR Notes * Anesthesia Postprocedure Evaluation - Bel Erazo MD - 04/09/2025 8:05 AM CDT Patient: Dianne Mcintyre Procedure: * No procedures listed * Anesthesia Type: Epidural Note: Disposition: Inpatient Postop Pain Control: Uneventful Sign Out: Well controlled pain PONV: No Neuro/Psych: Uneventful Sign Out: Acceptable/Baseline neuro status Airway/Respiratory: Uneventful Sign Out: Acceptable/Baseline resp. status CV/Hemodynamics: Uneventful Sign Out: Acceptable CV status; No obvious hypovolemia; No obvious fluid overload Other NRE: NONE DID A NON-ROUTINE EVENT OCCUR? Event details/Postop Comments: ..Patient doing well. Residual neuraxial block resolved with no reported numbness or paresthesias. Ambulating, voiding, and eating without difficulty. Denies positional headache. Pain well controlled. No bowel or bladder changes. No apparent epidural complications. Last vitals: Vitals: 04/08/25 2157 04/08/25 2233 04/09/25 0357 BP: 130/60 112/70 Pulse: 79 Resp: 16 Temp: 99 ??F (37.2 ??C) 98.7 ??F (37.1 ??C) 98.2 ??F (36.8 ??C) SpO2: Electronically Signed By: Bel Erazo MD April 09, 2025 8:05 AM * Anesthesia Procedure Notes - Bel Erazo MD - 04/08/2025 12:25 PM CDT Associated Order(s): Epidural Block Epidural catheter Procedure Note Pre-Procedure Staff - Anesthesiologist: Bel Erazo MD Performed By: anesthesiologist Location: OB Procedure Start/Stop Times: 04/08/2025 11:58 AM and 04/08/2025 12:17 PM Pre-Anesthestic Checklist: patient identified, IV checked, risks and benefits discussed, informed consent, monitors and equipment checked, pre-op evaluation and at physician/surgeon's request Timeout: Correct Patient: Yes Correct Procedure: Yes Correct Site: Yes Correct Position: Yes Procedure Documentation Procedure: epidural catheter Patient Position: sitting Patient Prep/Sterile Barriers: sterile gloves, mask, patient draped Skin prep: Chloraprep Local skin infiltrated with 3 mL of 1% lidocaine. Insertion Site: L3-4. (midline approach). Technique: LORT saline BRIAN at 5 cm. Needle Type: Touhy needle Needle Gauge: 17. Needle Length (Inches): 3.5 Catheter: 19 G. Catheter threaded easily. Threaded 12 cm at skin. # of attempts: 1 and # of redirects: 0 Assessment/Narrative Paresthesias: No. Test dose of 3 mL lidocaine 1.5% w/ 1:200,000 epinephrine at 12:06 CDT. Test dose negative, 3 minutes after injection, for signs of intravascular, subdural, or intrathecalinjection. Insertion/Infusion Method: LORT saline Aspiration negative for Heme or CSF via Epidural Catheter. Medication(s) Administered 0.25% Bupivacaine PF (Epidural) - EPIDURAL 10 mL - 04/08/2025 12:09:00 PM 0.125% Bupivacaine + 2 mcg/mL Fentanyl via CADD (Epidural) - EPIDURAL 10 mL - 04/08/2025 12:12:00 PM Medication Administration Time: 04/08/2025 11:58 AM FOR [facility] ([facility]) ONLY: Pain Team Contact information: please page the Pain Team Via [employer].Search Pain. During daytime hours, please page the attending first. At night please page the resident first. * Anesthesia Preprocedure Evaluation - Bel Erazo MD - 04/08/2025 12:24 PM CDT Anesthesia Pre-Procedure Evaluation Patient: Dianne Mcintyre : 1990 Procedure : * No procedures listed * Past Medical History: Diagnosis Date Chronic hypertension Past Surgical History: Procedure Laterality Date IR LUMBAR PUNCTURE 05/10/2023 TONSILLECTOMY 2003 No Known Allergies Social History Tobacco Use Smoking status: Never Smokeless tobacco: Never Substance Use Topics Alcohol use: Not Currently Wt Readings from Last 1 Encounters: 04/05/25 80.3 kg (177 lb) Physical Exam Airway Mallampati: II Cardiovascular - normal exam Dental (+) Minor Abnormalities - some fillings, tiny chips Pulmonary - normal exam Neurological - normal exam She appears awake, alert and oriented x3. Other Findings OUTSIDE LABS: CBC: Lab Results Component Value Date WBC 9.98 04/05/2025 WBC 11.54 (H) 03/27/2025 HGB 10.3 (L) 04/05/2025 HGB 11.1 (L) 03/27/2025 HCT 30.9 (L) 04/05/2025 HCT 32.6 (L) 03/27/2025 PLT 211 04/05/2025 PLT 205 03/27/2025 BMP: Lab Results Component Value Date NA 137 04/05/2025 NA 135 03/27/2025 POTASSIUM 3.6 04/05/2025 POTASSIUM 3.8 03/27/2025 CHLORIDE 103 04/05/2025 CHLORIDE 103 03/27/2025 CO2 20 (L) 04/05/2025 CO2 20 (L) 03/27/2025 BUN 14.5 04/05/2025 BUN 11.6 03/27/2025 CR 0.51 04/05/2025 CR 0.64 03/27/2025 GLC 117 (H) 04/05/2025 GLC 88 03/27/2025 COAGS: No results found for: PTT, INR, FIBR POC: No results found for: BGM, HCG, HCGS HEPATIC: Lab Results Component Value Date ALBUMIN 3.3 (L) 04/05/2025 PROTTOTAL 6.3 (L) 04/05/2025 ALT 18 04/05/2025 AST 19 04/05/2025 ALKPHOS 100 04/05/2025 BILITOTAL 0.2 04/05/2025 OTHER: Lab Results Component Value Date MIKAL 9.2 04/05/2025 Anesthesia Plan ASA Status: 2 Anesthesia Type: Epidural. Consents Anesthesia Plan(s) and associated risks, benefits, and realistic alternatives discussed. Questions answered and patient/procurement representative(s) expressed understanding. - Discussed: - Discussed with: Patient Postoperative Care Comments: Bel Erazo MD I have reviewed the pertinent notes and labs in the chart from the past 30 days and (re)examined the patient. Any updates or changes from those notes are reflected in this note. Clinically Significant Risk Factors # Hypoalbuminemia: Lowest albumin = 3.3 g/dL at 04/05/2025 8:34 PM, will monitor as appropriate documented in this encounter Plan of Treatment Upcoming Encounters Date Type Department Care Team (Latest Contact Info) Description 04/15/2025 Medical Correspondence [facility] [address] [place] [phone] Scan, Non-Provider PATIENT COMMUNICATION RECORD documented as of this encounter Procedures Procedure Name Priority Date/Time Associated Diagnosis Comments ANE EPIDURAL BLOCK Routine 04/08/2025 11 :58 AM CDT documented in this encounter Results * FV AN EPIDURAL DUMMY PERFORMABLE (04/08/2025 11:58 AM CDT) Narrative Bel Erazo MD - 04/08/2025 11:58 AM CDT Bel Erazo MD 04/08/2025 12:26 PM Epidural catheter Procedure Note Pre-Procedure Staff - Anesthesiologist: Bel Erazo MD Performed By: anesthesiologist Location: OB Procedure Start/Stop Times: 04/08/2025 11:58 AM and 04/08/2025 12:17 PM Pre-Anesthestic Checklist: patient identified, IV checked, risks and benefits discussed, informed consent, monitors and equipment checked, pre-op evaluation and at physician/surgeon's request Timeout: Correct Patient: Yes Correct Procedure: Yes Correct Site: Yes Correct Position: Yes Procedure Documentation Procedure: epidural catheter Patient Position: sitting Patient Prep/Sterile Barriers: sterile gloves, mask, patient draped Skin prep: Chloraprep Local skin infiltrated with 3 mL of 1% lidocaine. Insertion Site: L3-4. (midline approach). Technique: LORT saline BRIAN at 5 cm. Needle Type: Touhy needle Needle Gauge: 17. Needle Length (Inches): 3.5 Catheter: 19 G. Catheter threaded easily. Threaded 12 cm at skin. # of attempts: 1 and # of redirects: 0 Assessment/Narrative Paresthesias: No. Test dose of 3 mL lidocaine 1.5% w/ 1:200,000 epinephrine at 12:06 CDT. Test dose negative, 3 minutes after injection, for signs of intravascular, subdural, or intrathecal injection. Insertion/Infusion Method: LORT saline Aspiration negative for Heme or CSF via Epidural Catheter. Medication(s) Administered 0.25% Bupivacaine PF (Epidural) - EPIDURAL 10 mL - 04/08/2025 12:09:00 PM 0.125% Bupivacaine + 2 mcg/mL Fentanyl via CADD (Epidural) - EPIDURAL 10 mL - 04/08/2025 12:12:00 PM Medication Administration Time: 04/08/2025 11:58 AM FOR [facility] ([facility]) ONLY: Pain Team Contact information: please page the Pain Team Via [facility]. Search Pain. During daytime hours, please page the attending first. At night please page the resident first. us Bel Erazo MD [place] ANESTHESIA Final Resu lt documented in this encounter Visit Diagnoses Not on filedocumented in this encounter Administered Medications Inactive Administered Medications - up to 3 most recent administrations Medication Order MAR Action Action Date Dose Rate Site 0.25% Bupivacaine PF (Epidural) EPIDURAL, ONCE PRN WITHIN 24 HRS, Starting on Sun04/08/25 at 1209, For 1 dose, Anesthesia Intra-op $Given 04/08/2025 12:09 PM CDT 10 mLs fentaNYL 2 mcg/mL, BUPivacaine 0.125% in NS BOLUS EPIDURAL, ONCE PRN WITHIN 24 HRS, Starting on Sun04/08/25 at 1212, For 1 dose, Anesthesia Intra-op $Given 04/08/2025 12:12 PM CDT 10 mLs documented in this encounter Care Teams Security Intelligence Analyst Relationship Specialty Start Date End Date No Ref-Primary, Physician PCP - General 03/30/25 documented as of this encounter
[2025-04-14] VITALS (51 sets, daily range): BP systolic 124–172; BP diastolic 91–118; PULSE 59–79; RESP 16–18; TEMP 36.1–37.1; O2SAT 94–99; BMI 28.1
--- OUTSIDE RECORDS SUMMARY | 2025-04-14 16:18 | XMS_ITS | Encounter Summary ---
Author Organization [facility] Address [address], [place] [address] Care Team Providers Care Warp Drawer Name Role Phone Emilia Schofield APRN, CHIEF COMMUNICATIONS OFFICER Primary Care Provider + Reason for Visit * Reason Comments Forms Encounter Details Date Type Department Care Team ([facility] st Contact Info) Description 03/27/2025 Telephone [facility]STORE PERSON [address] [facility], [facility] [address] [place] [address] [place] [address] [phone] Forms Social History Tobacco Use Types Packs/Day Years [...] on file 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 Copy sent to [employer]. Copy in patient pickup. * Dannielle Guido - 03/27/2025 4:08 PM CDT Date received: 03/27 Received via: faxed Aerial Gunner Superintendent: Clarice Plan for completed paperwork: fax Form placed: in Dr. Dee's basket Once completed, please return to front office java developer documented in this encounter Plan of Treatment Upcoming Encounters Date Type Department Care Team (Late st Contact Info) Description 04/15/2025 1:00 PM CDT Appointment [facility]STORE PERSON [address] [facility], [facility] [address] [place] [phone] [place] [address] [place] [place], [place] [phone] documented as of this encounter Visit Diagnoses Not on filedocumented in this encounter Care Teams Warp Drawer Relationship Specialty Start Date End Date Emilia Schofield, SSIS ETL DEVELOPER, CHIEF COMMUNICATIONS OFFICER [address] [place] [phone] PCP - General Nurse Practitioner 07/10/17 documented as of this encounter
--- OUTSIDE RECORDS SUMMARY | 2025-04-14 16:18 | XMS_ITS | Encounter Summary ---
Author Organization [facility] Address [address] [place] [address] Care Team Providers Care Electroencephalographic Technologist Name Role Phone Emilia Schofield APRN, LAURA Primary Care Provider + Reason for Visit * Reason Comments POST- Hypertension Encounter Details Date Type Department Care Team (Late st Contact Info) Description 04/14/2025 Nurse Triage [facility]-GREEN CHAIN MARKER [address] [facility] [address] [place] [address] [place] [address] [place] [address] [phone] POST- (Hypertension/) Social History Tobacco Use Types Packs/Day Years [...] on file 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 Sheis calling with c/o elevated BP's today: 9:30am - 142/96 3:15pm - 163/105 3:30pm - 176/113 Pt notes headache x 2 days, no vision changes. She c/o upper right abdomen discomfort since yesterday. Pt is alternating Tylenol and Advil every 3 hours. PAPPAS and abd pain continues. Pt advised to go to ER for evaluation. Pt agrees with plan; will have someone drive her. Reviewed pertinent medical history (as relates to the call): Yes Reviewed pertinent medications (as relates to the call): Yes Reason for Disposition Systolic BP >= 160 OR Diastolic >= 110 Protocols used: - High Blood [id number] documented in this encounter Plan of Treatment Upcoming Encounters Date Type Department Care Team (Late st Contact Info) Description 04/15/2025 1:00 PM CDT Appointment [facility]GRE[facility] CH[facility] MARKER [address] [facility], [facility] [address] [place] [phone] [place] [address] [place], [place] [phone] documented as of this encounter Visit Diagnoses Not on filedocumented in this encounter Care Teams Electroencephalographic Technologist Relationship Specialty Start Date End Date Emilia Schofield, LAW WRITER, BIOPHARMACEUTICAL REP [address] [place] [address] PCP - General Nurse Practitioner 07/10/17 documented as of this encounter
--- OUTSIDE RECORDS SUMMARY | 2025-04-14 16:19 | XMS_ITS | Encounter Summary ---
Author Organization [facility] Address [address] [place] [address] Care Team Providers Care Call Specialist Name Role Phone Emilia Schofield APRN, LAURA Primary Care Provider + Reason for Visit * Reason Comments HYPERTENSION Encounter Details Date Type Department Care Team ([facility] st Contact Info) Description 03/27/2025 Nurse Triage [facility] [address] [facility] [address] [place] [phone] [place] [id number] [id number] HYPERTENSION Social History Tobacco Use Types Packs/Day Years [...] on file Legal 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 Reviewed providers note, Pt agreed with plan. Hand Model called over to L&D. They will be expecting her now. * Lydia Foss RN - 03/27/2025 2:11 PM CDT Clinician: Review and advise and Patient is expecting a call back from [facility] Patient/childcare teacher request: Appointment Work In: BP check and pre-eclampsia labs due to elevated BPin . Specific Request: Patient is a 34 yo female, , currently 37w2d, calling with elevated BP in . Reports elevated BP readings since last night: last three readings were 127/94 134/95 132/97 Patient denies any decreased movement, severe headaches not improved with Tylenol, changes invision, SOB, acute RUQ pain, nausea, or acute swelling in hands or face. RN reviewed schedules and is requesting work in appointment today with Dr. Gaona at 1530. Please advise. Reason for Disposition [1] 20 or more weeks AND [2] Systolic BP >= 140 OR Diastolic >= 90 Protocols used: - High Blood Rqbamsmt-Xmrve-DF documented in this encounter Plan of Treatment Upcoming Encounters Date Type Department Care Team (Late st Contact Info) Description 04/15/2025 1:00 PM CDT Appointment [facility] [address] [facility], [address] [place] [address] [place] [address] [address] [place] [address] documented as of this encounter Visit Diagnoses Not on filedocumented in this encounter Care Teams Call Specialist Relationship Specialty Start Date End Date Emilia Schofield, CAR DESIGNER, MARBLE SETTER HELPER [address] [place] [address] PCP - General Nurse Practitioner 07/10/17 documented as of this encounter
--- OUTSIDE RECORDS SUMMARY | 2025-04-14 16:19 | XMS_ITS | Clinical Summary ---
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 Active acetaminophen (TYLENOL) 325 MG tabletIndication s:Single liveborn infant delivered vaginally Take 2 tablets (650 mg) by mouth every 6 hours as needed for mild pain. 60 tablet 04/08/20 25 Active ibuprofen (ADVIL/MOTRIN) 600 MG tabletIndication s:Single liveborn infant delivered vaginally Take 1 tablet (600 mg) by mouth every 6 hours as needed for moderate pain. 30 tablet 04/08/20 25 Active SENNA-docusate sodium (SENNA S) 8.6-50 MG tabletIndication s:Single liveborn delivered vaginally Take 1 tablet by mouth at bedtime. 30 tablet 04/08/20 25 Active labetalol (NORMODYNE) 200 MG tabletIndication s:Hypertension Take 1 tablet (200 mg) by mouth 3 times daily. 120 tablet 04/10/20 25 Active doxylamine (UNISOM) 25 MG TABS tablet Take 25 mg by mouth at bedtime. 025 Discontinued(St op at Discharge) aspirin (ASA) 81 MG chewable tablet Take 81 mg by mouth daily. 025 Discontinued(St op at Discharge) labetalol (NORMODYNE) 200 MG tabletIndication s:Hypertension Take 200 mg by mouth 3 times daily. 025 Discontinued Active Problems Problem Noted Date Diagnosed Date Chronic hypertension affecting 025 Indication for care in labor or delivery 025 Encounters Date Type Department Care Team Description 04/08/2025 11:58 AM CDT Anesthesia Event [facility] [address] [place] [address] Bel Erazo MD Johnson, Juan Manuel Abarca MD 04/05/2025 7:24 PM CDT - 04/10/2025 12:29 PM CDT Hospital Encounter [facility] [address] [place] [address] Ximena Ott MD Schlies, Vonnie Rea, Maribel Mazariegos MD Zaiz, Rosibel Ybarra MD Lactating mother (Primary Dx); Single liveborn infant delivered vaginally; Hypertension affecting in third trimester; Chronic hypertension affecting Discharge Disposition: Home or Self Care 04/05/2025 Travel 03/27/2025 4:29 PM CDT - 03/27/2025 5:49 PM CDT Hospital Encounter [facility] [address] [place] [address] Caleb Dukes MD Chronic hypertension affecting (Primary Dx) Discharge Disposition: Home or Self Care 03/27/2025 Travel from Last 3 Months Immunizations Immunization Administration Dates Next Due INFLUENZA,TRIVALENT (FLUCELVAX) 03/18/2025 RSV (Abrysvo) 03/02/2025 TDAP (Adacel,Boostrix) 02/02/2025,03/22/2021, Social History Tobacco Use Types Packs/Day Years Used Date Smoking Tobacco: Never Smokeless Tobacco: Never Tobacco Cessation:Counseling Given: Not Answered Alcohol Use Standard Drinks/Week Comments Not Currently 0 (1 standard drink = 0.6 oz pur e alcohol) [place] Depression Scale Answer Date Recorded [place] Depression Scale Total 5 04/10/2025 The thought [...] in an abandoned building, in an overnight penitentiary, or couch-surfing.) Yes 04/05/2025 Are you worried [...] on file Sexual Orientation Not on file Last Filed Vital Signs Vital Sign Reading [...] Mass Index 29.59 04/05/2025 7:44 PM CDT Plan of Treatment Upcoming Encounters Date Type Department Care Team (Latest Contact Info) Description 04/15/[address] [facility] Information Management [address] [facility] [address] [place] [address] Scan, Non-Provider PATIENT COMMUNICATION RECORD Health Maintenance Due Date Last Done Comments ADVANCE CARE PLANNING 1992 ANNUAL REVIEW OF HM ORDERS 1992 YEARLY PREVENTIVE VISIT 08/21/2023 08/21/19 23, 06/30/2021, 05/18/2020, Additional history exists PHQ-2 (once per calendar year) 2024 COVID-19 VACCINE ( season) 2025 03/29/2022, 02/23/2022 PAP 08/07/2026 08/07/2023 DTAP/TDAP/TD VACCINE (11 - Td or Tdap) 02/02/2035 02/02/2025, 03/22/2021, 06/24/2012, Additional history exists ZOSTER VACCINE (1 of 2) 2042 MENINGITIS VACCINE Aged Out 02/08/2007 No longer eligible based on patient's age to complete this topic HPV VACCINE Completed 05/18/2020, 1202/2019, 01/25/2010 HEPATITIS C SCREENING Completed 09/18/2024 HIV SCREENING Completed 09/18/2024, 09/18/2024 HEPATITIS B VACCINE Completed 01/05/2025, 11/05/2024, 05/11/1993, Additional history exists RSV VACCINE Discontinued 03/02/2025 INFLUENZA VACCINE Completed 03/18/2025, , 04/01/2019 PNEUMOCOCCAL VACCINE: PEDIATRICS (0 to 5 YEARS) AND AT-RISK PATIENTS (6 to 49 YEARS) Aged Out No longer eligible based on patient's age to complete this topic Procedures Procedure Name Priority Date/Time Associated Diagnosis Comments COMPREHENSIVE METABOLIC PANEL (LIMITED OCCURRENCES) Routine 04/10/2025 7:22 AM CDT CBC WITH PLATELETS (LIMITED OCCURRENCES) Routine 04/10/2025 7:22 AM CDT COMPREHENSIVE METABOLIC PANEL (LIMITED OCCURRENCES) Routine 04/09/2025 8:32 AM CDT CBC WITH PLATELETS (LIMITED OCCURRENCES) Routine 04/09/2025 8:32 AM CDT PLACENTA PATH ORDER AND INDICATIONS Routine 04/08/2025 10:37 PM CDT ANE EPIDURAL BLOCK Routine 04/08/2025 11 :58 AM CDT PROTEIN AND CREATININE WITH RATIO RANDOM URINE STAT 04/05/2025 9:22 PM CDT ABO/RH TYPE AND SCREEN STAT 8:34 PM CDT TYPE AND SCREEN, ADULT STAT 8:34 PM CDT COMPREHENSIVE METABOLIC PANEL (LIMITED OCCURRENCES) STAT 04/05/2025 8:34 PM CDT TREPONEMA ABS W REFLEX TO RPR AND TITER STAT 04/05/2025 8:34 PM CDT CBC WITH PLATELETS STAT 04/05/2025 8: 34 PM CDT COMPREHENSIVE METABOLIC PANEL (LIMITED OCCURRENCES) STAT 03/27/2025 4:55 PM CDT CBC WITH PLATELETS (LIMITED OCCURRENCES) STAT 03/27/2025 4:55 PM CDT PROTEIN AND CREATININE WITH RATIO RANDOM URINE STAT 03/27/2025 4:47 PM CDT NON-STRESS TEST - HIM SCAN 03/27/2025 12:00 AM CDT GROUP B STREPTOCOCCUS (EXTERNAL RESULT) Routine 03/25/2025 12:00 PM CDT GROUP B STREPTOCOCCUS (EXTERNAL RESULT) Routine 03/18/2025 9:00 AM CDT HIV 1&2 ANTIBODY (EXTERNAL RESULT) Routine 09/18/2024 9:00 AM CDT from Last 3 Months or Most Recently Relevant to Health Maintenance Results * (ABNORMAL) CBC with Platelets (Limited Occurrences) (04/10/2025 7:22 AM CDT) Only the most recent of3 resultswithin the time period is included. WBC Count 10.93 4.00 - 11.00 10e3/uL [...] BLOOD ORDERABLES Final Res ult [facility] LABORATORY [facility] Acute Care Lab [address] Lab (1st floor, no room number) [place] [address], [facility] * (ABNORMAL) Comprehensive Metabolic Panel (Limited Occurrences) (04/10/2025 7:22 AM CDT) Only the most recent of4 resultswithin the time period is included. Sodium 137 135 - 145 mmol/L 04/10/2025 7:55 AM CDT [facility] Potassium 4.0 3.4 - 5.3 mmol/L 04/10/2025 7:55 AM CDT LABORATORY Carbon Dioxide (CO2) 21(L) 22 - 29 mmol/L 04/10/2025 7:55 AM CDT [facility] Anion Gap 12 7 - 15 mmol/L 04/10/2025 7:55 AM CDT LABORATORY Urea Nitrogen 8.4 6.0 - 20.0 mg/dL 04/10/2025 7:55 AM CDT LABORATORY Creatinine 0.58 0.51 - 0.95 mg/dL 04/10/2025 7:55 AM CDT [facility] GFR Estimate >90 >60 mL/min/1.7 3m2 04/10/2025 7:55 AM CDT [facility] Comment:eGFR calculated us2020 CKD-EPI equation. Calcium 8.6(L) 8.8 - 10.4 mg/dL 04/10/2025 7:55 AM CDT LABORATORY Chloride 104 98 - 107 mmol/L 04/10/2025 7:55 AM CDT LABORATORY Glucose 84 70 - 99 mg/dL 04/10/2025 7:55 AM CDT [facility] Alkaline Phosphatase 84 40 - 150 U/L 04/10/2025 7:55 AM CDT LABORATORY AST 63(H) 0 - 45 U/L 04/10/2025 7:55 AM CDT LABORATORY ALT 38 0 - 50 U/L 04/10/2025 7:55 AM CDT LABORATORY Protein Total 5.6(L) 6.4 - 8.3 [...] LAB - BLOOD ORDERABLES Final Res ult [facility] Lab [address] Lab (1st floor, no room number) [place] [address], [facility] * Placenta path order and indications (04/08/2025 10:37 PM CDT) Case Report Surgical Pathology Report Case: [id number] Authorizing Provider: Rosibel Arteaga MD Collected: 04/08/2025 10:37 PM Ordering Location: [facility] Received: 04/08/2025 11:01 PM [facility] Pathologist: Shukri [...] controlled on medication) 04/10/2025 3:21 PM CDT LABORATORY Gross Description A(A). Placenta, : The [...] the diagnosis as noted. 04/10/2025 3:21 PM CDT LABORATORY Performing Labs The technical component of this testing was completed at [facility]. Stain controls for all stains resulted within this report have been reviewed and show appropriate reactivity. 04/10/2025 3:21 PM CDT LABORATORY Case Images 04/10/2025 3:21 PM CDT LABORATORY Placenta PLACENTAL STRUCTURE / Unknown Non-blood Collection / Unknown 04/08/2025 10:37 PM CDT 04/08/2025 11:01 PM CDT us Rosibel PIZANO - JAZMIN Final Result LABORATORY [facility] [address] 1[address] floor, [address] [place] [address], [facility] [phone] LABORATORY [facility] Care [facility] [address] [facility] Lab (1st floor, no room number) [place] [address], [facility] * FV AN EPIDURAL DUMMY PERFORMABLE (04/08/2025 [...] Medication Administration Time: 04/08/2025 11:58 AM FOR [facility] ONLY: Pain Team Contact information: please page the Pain Team Via [employer]. Search Pain. During daytime hours, please page the attending first. At night please page the resident first. us Bel Erazo MD [place] ANESTHESIA Final Resu lt * Protein and Creatinine with Ratio Random Urine (04/05/2025 9:22 PM CDT) Only the most recent of2 resultswithin the time period is included. Total Protein Urine mg/dL 9.5 mg/dL 04/05/2025 9:59 PM CDT [facility] Comment:The reference ranges have not been established in urine protein. The results should be integrated into the clinical context for interpretation. Total Protein Urine mg/mg Creat 0.11 0.00 - 0.20 mg/mg Cr 04/05/2025 9:59 PM CDT LABORATORY Creatinine Urine mg/dL 83.0 mg/dL 04/05/2025 9:59 PM CDT [facility] LAB[facility]AT[facility] Comment:The reference ranges have not been established in urine creatinine. The results should be integrated into the clinical context for interpretation. Urine MID-STREAM URINE SPECIMEN / Unknown Non-blood Collection / Unknown 04/05/2025 9:22 PM CDT 04/05/2025 9:26 PM CDT Ximena Ott MD LAB - URINE ORDERABLES Fi nal Result LABORATORY [facility] [address] ([facility]st floor, no room number) [place] [address] * Adult Type and Screen (04/05/2025 8:34 PM CDT) ABO/RH(D) A POS 04/05/2025 9:19 PM CDT RH BLOOD BANK Antibody Screen Negative Negative 04/05/2025 9:19 PM CDT RH BLOOD BANK SPECIMEN EXPIRATION DATE 04/08/2025 11:59:00 PM CDT 04/05/2025 9:19 PM CDT BLOOD BANK Blood BLOOD SPECIMEN / Unknown Venipuncture / Unknown 04/05/2025 8:34 PM CDT 04/05/2025 8:38 PM CDT Result [facility] Ximena Ott MD LAB - BLOOD BANK TEST ORD ER Final Result Performing Organization Address [facility]/ZIP Co de Phone Number BLOOD BANK [address] [employer] [place] [address] * Treponema Abs w Reflex to RPR and Titer (04/05/2025 8:34 PM CDT) Treponema Antibody Total Nonreactive Nonreactive 04/06/2025 8:49 AM CDT SPECIALTY LABS Blood BLOOD SPECIMEN / Unknown Venipuncture / Unknown 04/05/2025 8:34 PM CDT 04/05/2025 8:38 PM CDT Ximena Ott MD LAB - BLOOD ORDERABLES Fi nal Result [facility] SPECIALTY CORE/PROT/ENDO [facility] Specialty Core/Prot/Endo [address] [facility] [address], [address] [place] [address], [facility] UM SPECIALTY LABS [facility] Specialty Lab [address] [facility] [address] [facility] [address], [address] [place] [address], [facility] * (ABNORMAL) CBC with platelets (04/05/2025 8:34 PM CDT) [facility] WBC Count 9.98 4.00 - 11.00 10e3/uL [...] LAB - BLOOD ORDERABLES Fi nal Result [facility] LABORATORY [facility] Acute Care Lab [address] Lab (1st floor, no room number) [place] [address] * Non-Stress Test - HIM Scan (03/27/2025 12:00 AM CDT) 03/27/2025 us Provider Outside PROCEDURES Final Result * Group B Streptococcus (External Result) (03/25/2025 12:00 PM CDT) Only the most recent of2 resultswithin the time period is included. Group B Streptococcus (External) Negative Negative EXTERNAL LAB 03/25/2025 12:0 0 PM CDT us Patient Reported LAB - HIM EXTERNAL RESULT Final Result Performing Organization Address City/[facility] Co de Phone Number EXTERNAL LAB External Lab * HIV-1 Antibody (External Result) (09/18/2024 9:00 AM CDT) HIV 1&2 Antibody (External) Negative Nonreactive [facility] 09/18/2024 9:00 AM CDT us Patient Reported LAB - HIM EXTERNAL RESULT Final Result [facility] [address] [id number] [phone] from Last 3 Months or Most Recently Relevant to Health Maintenance Insurance BC[employer] OF [place] [facility] OF [place] Advance Directives For more information, please contact: [phone] * Full Code (Latest Code Status on File) Date Activated Date Inactivated Comments 04/05/2025 8:07 PM 04/10/2025 2:29 PM All basic and advanced life-sustaining interventions are performed as appropriate Question Answer Comments Code status determined by: Discussion with patie nt/ legal decision maker Care Teams Photoengraving Etcher Apprentice Relationship Specialty Start Date End Date No Ref-Primary, Physician PCP - General 03/30/25
--- OUTSIDE RECORDS SUMMARY | 2025-04-14 16:19 | XMS_ITS | Encounter Summary ---
Author Organization [facility] Address [address] [place] [address] Care Team Providers Care Manager Med Surg Name Role Phone Unavailable Primary Care Provider Unavailabl e Encounter Details Date Type Department Care Team (Latest Contact Info) Description 03/27/2025 Travel Social History Tobacco Use Types Packs/Day Years [...] Contact Info) Description 04/15/[address] [facility] Information Management [address] [facility] [address] [place] [address] Scan, Non-Provider PATIENT COMMUNICATION RECORD documented as of this encounter Visit Diagnoses Not on filedocumented in this encounter
--- OUTSIDE RECORDS SUMMARY | 2025-04-14 16:19 | XMS_ITS | Encounter Summary ---
Author Organization [facility] Address [address] [place] [address]. 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 No 04/05/2025 Within the past 12 months, d id the food you bought just not last and you didn t have money to get more? No 04/05/2025 Housing Stability Answer Date Recorded Do you have housing? (Housin g is defined as stable permanent housing and does not include staying outside in a car, in a tent, in an abandoned building, in an overnight skilled nursing, or couch-surfing.) Yes 04/05/2025 Are you worried [...] your partner or ex-partner? No 04/05/2025 Comments Yes Sex and Gender Information Value Date Recorded Sex Assigned at Not on file Legal Sex Female 4:28 PM CDT Gender Identity Not on file Sexual Orientation Not on file documented as of this encounter Plan of Treatment Upcoming Encounters Date Type Department Care Team (Latest Contact Info) Description 04/15/2025 Medical Correspondence [facility] Information Management [address] [facility] [address] [place] [address] Scan, Non-Provider PATIENT COMMUNICATION RECORD documented as of this encounter Visit Diagnoses Not on filedocumented in this encounter Care Teams Grey Iron Molder Relationship Specialty Start Date End Date No Ref-Primary, Physician PCP - General 03/30/25 documented as of this encounter
--- OUTSIDE RECORDS SUMMARY | 2025-04-14 16:19 | XMS_ITS | Clinical Summary ---
Author Organization [facility] Address [address], [place] [address] Care Team Providers Care Retail Analytics Manager Name Role Phone Emilia Schofield APRN, CNP Primary Care Provider + Source Comments You are receiving this document as you are listed as the primary care provider,follow-up provider, or the patient has been referred to you for consultation.This is in compliance with the Medicare and[facility] EHR Incentive Program,which states Providers who transition their patient to another setting of careor provider of care or refers their patient to another provider of care shouldprovide summary care record for each transition of care or referral. [facility] Allergies No known active allergies Medications vitamin-ferrous fumarate-folic acid (PRENATALPLUS) 27-1 MG tablet Take 1 Tablet by mouth daily. Active gabapentin 8% lidocaine 4% topical gel Apply 1 Application topically two times daily as needed for Pain. Apply 1 pump 30 g 2 025 Active Pyridoxine HCl (VITAMIN B-6 OR) Act clara Doxylamine Succinate, Sleep, (UNISOM OR) Active aspirin EC 81 MG enteric coated tablet Take 1 Tablet (81 mg) by mouth daily. Active magnesium oxide (AKA MAG-OX) 200 MG tablet daily with meal. Active labetalol (TRANDATE) 200 MG tabletIndications :Chronic hypertension affecting Take 1 Tablet (200 mg) by mouth three times a day. 270 Tablet 1 025 2025 Active compounded prescription Gabapentin 4% lidocaine 4% ointment in lipoid base use fingertip amount to affected area 3x daily Will taper up use daily for 3 days and increase to 2x d if no irritation develops Increase to 3x/d after 3 to 5 days if no irritation 1-2 pumps per use 30 mL 2 023 2024 Discontinued ondansetron (ZOFRAN-ODT) 4 MG disintegrating tablet Take 1 Tablet (4 mg) by mouth every 8 hours as needed for Nausea. 30 Tablet 1 025 2024 Discontinued promethazine (PHENERGAN) 12.5 MG tablet TAKE 1-2 TABLETS (12.5-25 MG) BY MOUTH EVERY 6 HOURS NEEDED FOR NAUSEA. 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 Bilateral temporomandibular joint pain 8 Estimated Date of Delivery Comme nts Yes 04/15/2025 Based on last me nstrual period of 07/09/2024 (Exact Date) Resolved Problems Problem Noted Date Diagnosed Date Resolved Date High risk , antepartum 02/01/2025 03/18/2025 Supervision of normal 09/09/2024 02/01/2025 Umbilical cord cyst during p regnancy, antepartum 09/09/2024 10/31/2024 Nausea/vomiting in 09/09/2024 10/31/2024 Elevated BP without diagnosis of hypertension 04/13/20 18 12/24/2024 Overview (04/13/2018): Will recheck outside of clinic and report readings to [employer]. Encounters Date Type Department Care Team Description 04/14/2025 Nurse Triage [facility]-FLAKER OPERATOR [address] [place] [address], [facility] [address] [place] [address] Caleb Dukes MD POST- (Hypertension/) 03/31/2025 11:30 AM CDT Routine [facility]FLAKER OPERATOR [address] [place] [address], [address] [phone] Sintia Gaona MD Routine Visit 03/27/2025 Telephone [facility]-FLAKER OPERATOR [address] [place] [address], [address] [phone] Vonnie Dee, DO Forms 03/27/2025 Nurse Triage [facility]-FLAKER OPERATOR [address] [place] [address], [address] [phone] Caleb Dukes MD HYPERTENSION 03/25/2025 9:00 AM CDT Routine [facility] Services-FLAKER OPERATOR [address] [place] [address], [address] [phone] Caleb Dukes MD Routine Visit 03/22/2025 Results Follow-Up [facility]-FLAKER OPERATOR [address] [place] [address], [address] [phone] Vonnie Dee DO 03/18/2025 3:30 PM CDT Routine [facility]FLAKER OPERATOR [address] [place] [address], [address] [phone] Vonnie Dee DO Routine Visit 03/18/2025 Orders Only HIM DEPARTMENT Provider, MD Minh 03/16/2025 Results [facility] [address] [place] [address] Reymundo Fine MD 03/06/2025 1:30 PM CDT Lab Visit [facility] [address] [place] [phone] Chronic hypertension in 03/06/2025 11:45 AM CDT Procedure Visit [facility] [address] [place] [address], [address] [phone] Amalai Izquierdo MD 03/06/2025 11:15 AM CDT Ancillary Procedure [facility] [address] [place] [phone] Brie Hart MD Chronic hypertension affecting 03/06/2025 Notes/Orders [facility] [facility] [address] [place] [address] Amalia Izquierdo MD Chronic hypertension in (Primary Dx) 03/02/2025 1:30 PM CDT Routine [facility]-FLAKER OPERATOR [address] [place] [phone] Luiza Chester MD Routine Visit 02/16/2025 10:00 AM CDT Routine [facility]-FLAKER OPERATOR [address] [place] [phone] Tena Eldridge APRN, [facility] Routine Visit 02/02/2025 10:15 AM CDT Routine [facility]FLAKER OPERATOR [address] [place] [phone] Luiza Chester MD Routine Visit 01/23/2025 10:15 AM CDT Ancillary Procedure [facility] [address] [place] [address], [address] [phone] Brie Hart MD Maternal chronic hypertension in second trimester 01/13/2025 10:40 AM CDT Lab Visit [facility] [address] [place] [phone] Encounter for supervision of other normal in second trimester 01/13/2025 Results Follow-Up [facility]-FLAKER OPERATOR [address] [facility], [address] [place] [address] Luiza Chester MD from Last 3 Months Immunizations Immunization Administration Dates Next Due 4vHPV (Gardasil) 01/25/2010 9vHPV (Gardasil 9) 05/18/2020,06/02/2019 Adult RSV Abrysvo 03/02/2025 DTP 09/08/1997, 4,02/08/1993,1992,1992 HepB Adult (Heplisav-B, 19+ yrs, 2 dose series) 01/05/2025,11/05/2024 HepB Ped/Adol (0-18 yrs) 05/11/1993,1992,0 1992 Hib (ActHIB) 11/21/1993, 3,1992,1992 Influenza (Flucelvax), Prese rv Free QIV 03/31/2020 Influenza IIV4 (Quadrivalent ) 0.5mL (02531) 04/01/2019 Influenza ccIIV3 6 months+ (Flucelvax) 03/18/2025 MMR 09/08/1997,11/21/1993 MPSV4 (Menomune) 02/08/2007 Moderna Monovalent 12+ 03/29/2022,02/23/2022 OPV, Trivalent (Orimune or tOPV) 998,02/17/1994,1992,1992 Rabies, IM Fibroblast Cultur e (RabAvert) 04/05/2021,03/29/2021,03/25/2021,2020 Td 04/03/2005 Tdap 02/02/2025,03/22/2021,06/24/2012 Varicella 01/25/2010,02/08/2007,08/12/2002 Family History Medical History Relation Name Comments Cancer Father Sarcoma No Known Problems Mother No Known Problems Brother Cancer Maternal Grandfather lung ca ncer; smoker. 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 Not on file Not on file Last Filed Vital Signs Vital Sign Reading Time Taken Comments Blood Pressure 123/74 03/31/2025 11:33 AM CDT Pulse 88 03/31/2025 11:33 AM CDT Temperature 36.6 C (97.8 F) 12/28/2017 10:14 AM CDT Respiratory Rate 16 01/29/2020 9:29 AM CDT Oxygen Saturation 98% 07/10/2017 1:29 PM FINISH PRODUCTION MANAGER Inhaled Oxygen Concentration - - Weight 79.8 kg (176 lb) 03/31/2025 11:33 AM CDT Height 165.1 cm (5' 5) 09/09/2024 8:34 AM CDT Body Mass Index 29.29 09/09/2024 8:34 AM CDT Plan of Treatment Upcoming Encounters Date Type Department Care Team (Late st Contact Info) Description 04/15/2025 1:00 PM CDT Appointment [facility]-FLAKER OPERATOR [address] [facility], [address] [place] [phone] [place] [address] [place] [address] Health Maintenance Due Date Last Done Comments Adult Preventive Visit 08/21/2024 3, 06/30/2021, 05/18/2020, Additional history exists COVID-19 Vaccine (2024- season) 2025 03/29/2022, 02/23/2022 Cervical Cancer Screening 09/09/20292024, 06/30/2021, 04/04/2018 DTaP/Tdap/Td Vaccine (9 - Tdap) 02/02/2035 02/02/2025, 03/22/2021, 06/24/2012, Additional history exists Zoster/Shingles Vaccine (1 of 2) 2042 Hib Vaccine Completed 11/21/1993, 01/23, 1992, Additional history exists IPV (Polio) Vaccine Completed 09/08/1997, 02/17/1994, 1992, Additional history exists MCV4 Vaccine Aged Out 02/08/2007 No longer eligi ble based on patient's age to complete this topic HPV Vaccine Completed 05/18/2020, 1202/2019, 01/25/2010 HIV Screening (Preventive Services) Completed 09/18/2024, 08/21/2022 Hep C Screening (Preventive Services) Completed 09/18/2024, 08/21/2022 HepB Vaccine Completed 01/05/2025, 10/23, 05/11/1993, Additional history exists Influenza Vaccine Completed 03/18/2025, , 04/01/2019 HepA Vaccine Aged Out No longer eligi ble based on patient's age to complete this topic Meningococcal B Vaccine Aged Out No l onger eligible based on patient's age to complete this topic Pneumococcal Vaccine Aged Out No long er eligible based on patient's age to complete this topic Procedures Procedure Name Priority Date/Time Associated Diagnosis Comments GROUP B STREP SCREEN (OB PTS) Routine 03/18/2025 4:22 PM CDT High risk , antepartum ULTRASOUND SC 03/18/2025 OB CLINIC ULTRASOUND LIMITED Routine 03/18/2025 Evaluate position using ultrasound TP/CREA RATIO, URINE Routine 03/06/2025 1:32 PM CDT Chronic hypertension in PLATELETS Routine 03/06/2025 1:32 PM CDT Chronic hypertension in CREATININE / GFR Routine 03/06/2025 1:32 PM CDT Chronic hypertension in ALT (SGPT) Routine 03/06/2025 1:32 PM CDT Chronic hypertension in AST Routine 03/06/2025 1:32 PM CDT Chronic hypertension in [facility] US OB FOLLOW-UP GROWTH Routine 03/06/2025 11:48 AM CDT Chronic hypertension affecting [facility] US OB FOLLOW-UP GROWTH Routine 01/23/2025 10:50 AM CDT Maternal chronic hypertension in second trimester SYPHILIS PANEL (WITH REFLEX) Routine 01/13/2025 11:44 AM CDT Encounter for supervision of other normal in second trimester SYPHILIS PANEL (WITH REFLEX) Routine 01/13/2025 11:44 AM CDT Encounter for supervision of other normal in second trimester GLUCOSE TOLERANCE, 1 HOUR () Routine 01/13/2025 11:44 AM CDT Encounter for supervision of other normal in second trimester COMPLETE BLOOD COUNT-NO DIFF Routine 01/13/2025 11:44 AM CDT Encounter for supervision of other normal in second trimester HIV 1/2 AG/AB 4TH GEN Routine 09/18/2024 10:35 AM CDT Encounter for supervision of normal first in first trimester HEPATITIS C ANTIBODY, WITH REFLEX (ANTI-HCV) Routine 09/18/2024 10:35 AM CDT Encounter for supervision of normal first in first trimester HPV WITH 16 18 GENOTYPING, CERVICAL/ENDOCERVIC AL Routine 09/09/2024 9:32 AM CDT Encounter for supervision of normal first in first trimester from Last 3 Months or Most Recently Relevant to Health Maintenance Results * Group B Strep Screen (OB Pts) (03/18/2025 4:22 PM CDT) Group B Strep Screen No Group B Streptococcus Isolated 03/21/2025 8:17 AM CDT [facility] Swab (Source Required) PERINEAL SWAB / Unknown Non-blood Collection / Unknown 03/18/2025 4:22 PM CDT 03/18/2025 4:31 PM CDT us Vonnie Dee DO LAB_1 Final Resu lt Performing Organization Address City/[facility]/ZIP Co de Phone Number [facility] CLIA: [id number] [address] [place] [address] * OB CLINIC ULTRASOUND LIMITED (03/18/2025) Anatomical Region Laterality Modality Other Narrative 03/18/2025 Bedside US confirms vertex position us Vonnie Dee DO PN CLINIC US ORDERABLES Fi nal Result * ULTRASOUND SC (03/18/2025) Anatomical Region Laterality Modality Other us Interface Provider MD DUMMY/OTHER/AR Final Resu lt * Creatinine / GFR (03/06/2025 1:32 PM CDT) Creatinine 0.59 0.55 - 1.02 mg/dL 03/06/2025 8:15 PM CDT [facility] GFR, Estimated >60 >60 mL/min/1.7 3m2 03/06/2025 8:15 PM CDT [facility] Blood Venipuncture / Unknown 03/06/2025 1:32 PM CDT 03/06/2025 1:32 PM CDT us Amalia Izquierdo MD LAB_1 Final Resul t [facility] CLIA: [id number] [address] [place] [address] * Platelets (03/06/2025 1:32 PM CDT) Pathologist [facility] Platelets 232 150 - 450 x10(9)/L 03/06/2025 5:49 PM CDT [facility] Blood Venipuncture / Unknown 03/06/2025 1:32 PM CDT 03/06/2025 1:32 PM CDT Amalia Izquierdo MD LAB_1 Final Resul t Performing Organization Address [facility] de Phone Number [facility] CLIA: [id number] [place] [address] * TP/Crea Ratio, Urine (03/06/2025 1:32 PM CDT) [facility] TP/Creat Ratio, Urine Random 0.09 0.00 - 0.20 03/06/2025 9:10 PM CDT [facility] Total Protein, Urine, Random 4 0 - 14 mg/dL 03/06/2025 9:10 PM CDT [facility] Creatinine, Urine, Random 45 >20 mg/dL mg/dL 03/06/2025 9:10 PM CDT [facility] Urine Non-blood Collection / Unknown 03/06/2025 1:32 PM CDT 03/06/2025 1:32 PM CDT Narrative [facility] - 03/06/2025 9:10 PM CDT Low urine creatinine values coupled with low urine protein values can artifactually increase the urine protein/creatinine results. Correlate results of ratio with creatinine results. Amalia Izquierdo MD LAB_1 Final Resul t Performing Organization Address City/[facility]/ZIP Co de Phone Number [facility] CLIA: [id number] [address] * ALT (SGPT) (03/06/2025 1:32 PM CDT) ALT (SGPT) 11 0 - 55 U/L 03/06/2025 8:15 PM CDT [facility] Blood Venipuncture / Unknown 03/06/2025 1:32 PM CDT 03/06/2025 1:32 PM CDT us Amalia Izquierdo MD LAB_1 Final Resul t Performing Organization Address [facility] de Phone Number [facility] CLIA: [id number] [address] [place] [address] * AST (03/06/2025 1:32 PM CDT) AST (SGOT) 19 16 - 46 U/L 03/06/2025 8:15 PM CDT [facility] Blood Venipuncture / Unknown 03/06/2025 1:32 PM CDT 03/06/2025 1:32 PM CDT us Amalia Izquierdo MD LAB_1 Final Resul t Performing Organization Address [facility] Phone Number [facility] CLIA: [id number] [address] [place] [address] * [facility] US OB Follow-Up Growth (03/06/2025 11:48 AM CDT) Only the most recent of2 resultswithin the time period is included. Anatomical Region Laterality Modality Pelvis Ultrasound Study [...] Valve Pulmonary Valve Aortic Valve EFW: Hadlock 1985 (BPD, [place], [place], [place]) 2100 g Impressions [...] and documentation: 30 mins Amalia Izquierdo MD [facility] Narrative 03/06/2025 12:39 PM CDT Table formatting from the original result was not included. Images from the original result were not included. [facility] [address] [place] [address], [facility] [address] [place] [address] Dept Dept Patient Name: Dianne Mcintyre Referred By: Attending: MD Amalia Crawford MD Patient Workers' Compensation Claims Examiner: Alannah [facility] RDMS , Age: 208/10/1990, 34 [...] No fluid seen Left Adnexa Normal Impression Brie Hart MD [facility] US Final Result * Syphilis Panel, with Reflex (01/13/2025 11:44 AM CDT) Pathologist [facility] Treponema Screen Interpretation Non Reactive Non Reactive 01/13/2025 8:15 PM CDT [facility] Syphilis Panel Comment Negative - No serological evidence of syphilis. 01/13/2025 8:15 PM CDT [facility] Blood Venipuncture / Unknown 01/13/2025 11:44 AM CDT 01/13/2025 11:44 AM CDT us Luiza Chester MD LAB_1 Final Resul t [facility] [address] * (ABNORMAL) Complete Blood Count-No Diff (01/13/2025 11:44 AM CDT) [facility] WBC 12.2(H) 3.5 - 10.5 x10(9)/L 01/13/2025 3:00 PM CDT [facility] RBC 4.23 3.90 - 5.03 x10(12)/L 01/13/2025 3:00 PM [facility] Hemoglobin 12.9 12.0 - 15.5 g/dL 01/13/2025 3:00 PM [facility] HCT 38.6 34.9 - 44.5 % 01/13/2025 3:00 PM [facility] MCV 91.3 80.0 - 100.0 fL 01/13/2025 3:00 PM [facility] MCH 30.5 27.6 - 33.3 pg 01/13/2025 3:00 PM [facility] MCHC 33.4 31.5 - 35.2 g/dL 01/13/2025 3:00 PM [facility] RDW 13.2 11.9 - 15.5 % 01/13/2025 3:00 PM [facility] Platelets 241 150 - 450 x10(9)/L 01/13/2025 3:00 PM [facility] Automated NRBC 0 <=0 /100 WBC 01/13/2025 3:00 PM [facility] Blood Venipuncture / Unknown 01/13/2025 11:44 AM CDT 01/13/2025 11:44 AM CDT us Luiza Chester MD LAB_1 Final Resul t Performing Organization Address [facility] de Phone Number [address] * Glucose Tolerance, 1 Hour () (01/13/2025 11:44 AM CDT) [facility] Glucose, 1 Hour OB Challenge 104 70 - 135 mg/dL 01/13/2025 4:09 PM CDT [facility] Blood Venipuncture / Unknown 01/13/2025 11:44 AM CDT 01/13/2025 11:44 AM CDT Luiza Chester MD LAB_1 Final Resul t Performing Organization Address [facility] Co de Phone Number [facility] [address] * HIV 1/2 Ag/Ab 4th Generation (09/18/2024 10:35 AM CDT) Pathologist [facility] HIV 1/2 Antigen/Antib manuel (4th generation) Negative (Non Reactive) Negative (Non Reactive) 09/18/2024 5:49 PM CDT [facility] Comment:HIV-1 p24 Antigen an d HIV-1/HIV-2 Antibody not detected Blood Venipuncture / Unknown 09/18/2024 10:35 AM CDT 09/18/2024 10:35 AM CDT Tena Silva Gave CAD DRAFTSMAN, RIVER TRANSPORTATION WORKER LAB_1 Final Result [facility] [address] [place] [address] * Hepatitis C Antibody, with Reflex (09/18/2024 10:35 AM CDT) Pathologist [facility] Hepatitis C Antibody Negative (Non Reactive) Negative (Non Reactive) 09/18/2024 5:49 PM CDT [facility] Comment:Antibodies to HCV no t detected. Does not exclude the possiblity of exposure to HCV. Blood Venipuncture / Unknown 09/18/2024 10:35 AM CDT 09/18/2024 10:35 AM CDT Tena Eldridge CAD DRAFTSMAN, RIVER TRANSPORTATION WORKER LAB_1 Final Result [facility] [address] [place] [address] * HPV Genotyping PCR (Cervical/Endocervical ONLY) with Reflex Cytology (Pap) if Indicated (59:32 AM CDT) Pathologist [facility] HPV High Risk Type 16 PCR Not Detected Not detected 09/11/2024 1:46 PM CDT [facility] HPV High Risk Type 18 PCR Not Detected Not Detected 09/11/2024 1:46 PM CDT [facility] HPV High Risk Other Than 16/18 Not Detected Not detected 09/11/2024 1:46 PM CDT [facility] Cervical Broom ENTIRE ENDOCERVIX / Unknown 09/09/2024 9:32 AM CDT 09/09/2024 11:14 AM CDT [facility] 09/11/2024 1:46 PM CDT The Yesenia HPV test is a qualitative in vitro test for the detection of Human Papillomavirus in [facility] patient specimens. The test utilizes amplification of target DNA by Polymerase Chain Reaction (PCR) and nucleic acid hybridization for the detection of 14 high-risk (HR) HPV types. The assay tests for high risk types (16, 18, 31, 33, 35, 39, 45, 51, 52, 56, 58, 59, 66, and 68). us Tena Eldridge APRN, CNP LAB_1 Final Result [address] [address], [facility] from Last 3 Months or Most Recently Relevant to Health Maintenance Insurance [facility] Care Teams Retail Analytics Manager Relationship Specialty Start Date End Date Emilia Schofield APRN, LAURA [address] [place] [phone] PCP - General Nurse Practitioner 07/10/17
--- OUTSIDE RECORDS SUMMARY | 2025-04-14 16:19 | XMS_ITS | Encounter Summary ---
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 Not on file Not on file documented as of this encounter Plan of Treatment Upcoming Encounters Date Type Department Care Team (Late st Contact Info) Description 04/15/2025 1:00 PM CDT Appointment [facility]-ASSORTMENT PLANNER [address] [facility], [facility] [address] [place] [address] [place] [address] [place] [address] documented as of this encounter Procedures Procedure Name Priority Date/Time Associated Diagnosis Comments ULTRASOUND VA 03/18/2025 documented in this encounter Results * ULTRASOUND VA (03/18/2025) Anatomical Region Laterality Modality Other us Interface Provider DUMMY/OTHER/AR Final Resu lt documented in this encounter Visit Diagnoses Not on filedocumented in this encounter Care Teams Bioinformatician Relationship Specialty Start Date End Date Emilia Schofield, SHAREHOLDER, KILN DOOR REPAIRER [address] [place] [phone] PCP - General Nurse Practitioner 07/10/17 documented as of this encounter
--- OUTSIDE RECORDS SUMMARY | 2025-04-14 16:19 | XMS_ITS | Encounter Summary ---
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 Gender Identity Not on file Sexual Orientation Not on file 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 Not on file Not on file documented as of this encounter Plan of Treatment Upcoming Encounters Date Type Department Care Team (Late st Contact Info) Description 04/15/2025 1:00 PM CDT Appointment [facility]-MAIL SORTER AND DELIVERY [address] [facility], [address] [place] [phone] [place] [address] [place], [place] [phone] documented as of this encounter Visit Diagnoses Not on filedocumented in this encounter Care Teams State Federal Relations Deputy Director Relationship Specialty Start Date End Date Emilia Schofield, DRAFTER TOOL DESIGN, [place]ARM [place] [address] [place] [phone] PCP - General Nurse Practitioner 07/10/17 documented as of this encounter
--- OUTSIDE RECORDS SUMMARY | 2025-04-14 16:19 | XMS_ITS | Encounter Summary ---
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 Gender Identity Not on file Sexual Orientation Not on file 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 Not on file Not on file documented as of this encounter Progress Notes * Reymundo Fine MD - 03/16/2025 9:57 AM CDT Normal baseline labs documented in this encounter Plan of Treatment Upcoming Encounters Date Type Department Care Team (Late st Contact Info) Description 04/15/2025 1:00 PM CDT Appointment [facility]-RECONCILIATION COORDINATOR [address] [facility], [address] [place] [phone] [place] [address] [place] [address] documented as of this encounter Visit Diagnoses Not on filedocumented in this encounter Care Teams Supervisor Aluminum Fabrication Relationship Specialty Start Date End Date Emilia Schofield, DIAMOND SIZER AND SORTER, VENETIAN BLIND TAPE CUTTER [address] [place] [phone] PCP - General Nurse Practitioner 07/10/17 documented as of this encounter
--- OUTSIDE RECORDS SUMMARY | 2025-04-14 16:20 | XMS_ITS | Encounter Summary ---
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 Gender Identity Not on file Sexual Orientation Not on file 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 Not on file Not on file documented as of this encounter Plan of Treatment Upcoming Encounters Date Type Department Care Team (Late st Contact Info) Description 04/15/2025 1:00 PM CDT Appointment [facility]-AIR SEALING TECHNICIAN [address] [facility], [address] [place] [phone] [place] [address] [place] [address] documented as of this encounter Results * TP/Crea Ratio, Urine (03/06/2025 1:32 PM CDT) Pathologist [facility] TP/Creat Ratio, Urine Random 0.09 0.00 - 0.20 03/06/2025 9:10 PM CDT [facility] Total Protein, Urine, Random 4 0 - 14 mg/dL 03/06/2025 9:10 PM T [facility] Creatinine, Urine, Random 45 >20 mg/dL mg/dL 03/06/2025 9:10 PM T [facility] Urine Non-blood Collection / Unknown 03/06/2025 1:32 PM CDT 03/06/2025 1:32 PM CDT Narrative [facility] - 03/06/2025 9:10 PM CDT Low urine creatinine values coupled with low urine protein values can artifactually increase the urine protein/creatinine results. Correlate results of ratio with creatinine results. us Amalia Izquierdo MD LAB_1 Final Resul t [facility] CLIA: [id number] [address] * Platelets (03/06/2025 1:32 PM CDT) Pathologist [facility] Platelets 232 150 - 450 x10(9)/L 03/06/2025 5:49 PM CDT [facility] Blood Venipuncture / Unknown 03/06/2025 1:32 PM CDT 03/06/2025 1:32 PM CDT Amalia Izquierdo MD LAB_1 Final Resul t Performing Organization Address [facility] Phone Number [facility] CLIA: [id number] [address] [place] [address] * Creatinine / GFR (03/06/2025 1:32 PM CDT) Creatinine 0.59 0.55 - 1.02 mg/dL 03/06/2025 8:15 PM CDT [facility] GFR, Estimated >60 >60 mL/min/1.7 3m2 03/06/2025 8:15 PM CDT [facility] Blood Venipuncture / Unknown 03/06/2025 1:32 PM CDT 03/06/2025 1:32 PM CDT Amalia Izquierdo MD LAB_1 Final Resul t Performing Organization Address [facility] Phone Number [facility] CLIA: [id number] [address] [place] [address] * ALT (SGPT) (03/06/2025 1:32 PM CDT) ALT (SGPT) 11 0 - 55 U/L 03/06/2025 8:15 PM CDT [facility] Blood Venipuncture / Unknown 03/06/2025 1:32 PM CDT 03/06/2025 1:32 PM CDT Amalia Izquierdo MD LAB_1 Final Resul t Performing Organization Address [facility] Phone Number [facility] CLIA: [id number] [address] [place], [place] [phone] * AST (03/06/2025 1:32 PM CDT) AST (SGOT) 19 16 - 46 U/L 03/06/2025 8:15 PM CDT [facility] Blood Venipuncture / Unknown 03/06/2025 1:32 PM CDT 03/06/2025 1:32 PM CDT us Amalia Izquierdo MD LAB_1 Final Resul t [facility] CLIA: [id number] [address] [place] [address], [facility] documented in this encounter Visit Diagnoses Diagnosis Chronic hypertension in - Primary Benign essential hypertension complicating , childbirth, and the puerperium, unspecified as to episode of care documented in this encounter Care Teams Basin Operator Relationship Specialty Start Date End Date Emilia Schofield, VP DESIGN, INKER MACHINE [address] [place] [phone] PCP - General Nurse Practitioner 07/10/17 documented as of this encounter
--- OUTSIDE RECORDS SUMMARY | 2025-04-14 16:20 | XMS_ITS | Encounter Summary ---
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 Gender Identity Not on file Sexual Orientation Not on file 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 Not on file Not on file documented as of this encounter Plan of Treatment Upcoming Encounters Date Type Department Care Team (Late st Contact Info) Description 04/15/2025 1:00 PM CDT Appointment [facility]-COUNTER CHECKER [address] [facility], [address] [place] [phone] [place] [address] [place] [address] documented as of this encounter Visit Diagnoses Not on filedocumented in this encounter Care Teams Processing Technologist Relationship Specialty Start Date End Date Emilia Schofield, PATCH PRESS OPERATOR, SUPERVISOR MOLD SHOP [address] [facility] [place] [phone] PCP - General Nurse Practitioner 07/10/17 documented as of this encounter
--- OUTSIDE RECORDS SUMMARY | 2025-04-14 16:20 | XMS_ITS | Patient Health Record ---
Author [facility] Address [address] [place] [address] Care Team Providers Care Laser Beam Trim Operator Name Role Phone None, No PCP Primary Care Provider Donald Carlin Analia Caldera [phone] Allergies No Known Allergies Reason For Referral No Information Medications Medication SIG (Take, Route, Fr equency, Duration) Notes Start Date End Date Status Fluconazole 150 MG 1 tablet Orally Once daily; Duration: 1 days 10/13/2022 Active Multi-Vitamin Active Social History Tobacco Use: Social History Observation Description Date Details (start date - stop date) Never Smoker NA - NA Tobacco Use/Smoking Question Answer Notes Are you a nonsmoker Alcohol Screen (Audit-C) Question Answer Notes Did you have a drink contain ing alcohol in the past year? Yes How often did you have a dri nk containing alcohol in the past year? 2 to 4 times a month (2 points) How many drinks did you have on a typical day when you were drinking in the past year? 1 or 2 drinks (0 point) Points 2 Interpretation Negative Plan Of Treatment Pending Test Test Name Order Date CRP - C-REACTIVE PROTEIN 09/22/2022 Insurance Providers Payer Name Payer Address Payer Phone Subscriber Number Group Number Insured Name Patient Relationship to Insured Coverage Start Date Coverage End Date BCBS - (Client Bill) [address] [address] [id number] Dianne Mcintyre Self - patient is the insured Medical (General) History Medical History History ICD Code bladder infections Surgical History Surgery Date(Month/Year) tonsil removal 2002 hand surgery 2010
--- OUTSIDE RECORDS SUMMARY | 2025-04-14 16:21 | XMS_ITS ---
Author Organization [facility] Address [address], [place] [address] Care Team Providers Care Slate Worker Name Role Phone Emilia Schofield APRN, CNP Primary Care Provider + Transitional Care Management Status:Closed (Closed) Start date:04/10/2025 Enrollment reason:Discharged from external hospital End date:04/13/2025 Close reason:Admitted for labor/delivery-related condition Continued Care and Services Coordination
--- OUTSIDE RECORDS SUMMARY | 2025-04-14 16:21 | XMS_ITS | Clinical Summary ---
Author Organization [facility] Address [address] [place] [address] Care Team Providers Care Center Maker Hand Name Role Phone Pcp, No Primary Care Provider Unavailabl e Allergies No known active allergies Medications 25/iron fum/folic/dha (-1 ORAL) Take 1 Tablet by mouth once daily. 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 Elevated BP without diagnosis of hypertension Overview (07/14/2022): Will recheck outside of clinic and report readings to [facility]. Bilateral temporomandibular joint pain 8 Immunizations Immunization Administration Dates Next Due DTP 09/08/1997, 4,02/08/1993,1992 ,1992 HIB PRP-T (ActHIB,Hiberix) 11/21/1993,02/08/1993 ,1992,1992 HPV 9 (Gardasil 9) 05/18/2020,06/02/2019 Hepatitis B (Peds) 05/11/1993,1992, 993 Human Papilloma Virus Vaccine 01/25/2010 Influenza, IIV4 04/01/2019 Influenza,CCIIV4 PRESERV FREE 03/31/2020 MMR 09/08/1997,11/21/1993 Meningococcal Vaccine (Menomune) 02/08/2007 Oral Polio Vaccine 09/08/1997,02/17/1994, 993,1992 Rabavert 04/05/2021,03/29/2021,03/25/2021 ,03/22/2021 Td (Age >=7 Years) 04/03/2005 Tdap 03/22/2021,06/24/2012 Varicella Vaccine 01/25/2010,02/08/2007,08/12/19 03 Social History Tobacco Use Types Packs/Day Years Used Date Smoking Tobacco: Never Smokeless Tobacco: Never Tobacco Cessation:Counseling Given: Yes Alcohol Use Standard Drinks/Week Comments Yes 3 (1 standard drink = 0.6 oz pur e alcohol) PHQ-2 Answer Date Recorded PHQ-2 TOTAL SCORE 3 11/23/2022 Social Connections Answer Date Recorded Frequency of Communication with Friends and Fami ly 0 07/14/2022 Financial Resource Strain Answer Date R ecorded Difficulty of Paying Living Expenses 3 07/14/2022 Difficulty of Paying Living Expenses Not on file 07/14/2022 Food Insecurity Answer Date Recorded Worried About Running Out of Food in the Last Ye ar 1 07/14/2022 Transportation Needs Answer Date Record ed Lack of Transportation (Medical) 1 07/14/2022 Housing Stability Answer Date Recorded Unable to Pay for Housing in the Last Year 1 07/14/2022 Comments No Sex and Gender Information Value Date Recorded Sex Assigned at Not on file Legal Sex Female 1:18 PM CDT Gender Identity Not on file Sexual Orientation Not on file Obstetrics History Last Filed Vital Signs Vital Sign Reading Time Taken Comments Blood Pressure 128/85 11/23/2022 2:09 PM CDT Pulse 78 11/23/2022 2:07 PM CDT Temperature 37.2 C (98.9 F) 03/22/2021 9:48 AM CDT Respiratory Rate 12 03/02/2021 4:30 PM CDT Oxygen Saturation 98% 10/17/2022 8:52 AM CDT Inhaled Oxygen Concentration - - Weight 50.8 kg (112 lb) 11/23/2022 2:07 PM CDT Height 162.6 cm (5' 4) 11/23/2022 2:07 PM CDT Body Mass Index 19.22 11/23/2022 2:07 PM CDT Plan of Treatment Health Maintenance Due Date Last Done Comments HIV for age 15-65 2007 Hepatitis C screening for age 18-79 2010 BMI (ht and wt on same day) for age 18+ 11/24/2023 11/23/2022, 07/14/2022, 07/05/2022 Depression screening for age 12+ 11/24/2023 11/23/2022, 07/14/2022 Pap test for age 21-65 06/30/2024 2 ([facility] COVID-19 vaccine series (2024- season) 2025 03/29/2022, 02/23/2022 Influenza Vaccine (#1) 2025 03/31/2020, 2018 Tetanus booster 03/22/2031 03/22/2021, 05/27, 04/03/2005 RSV vaccine for adults or (1 - 1-dose 75+ series) 2067 Hepatitis B series for 19+ Completed 05/11, 1992, 1992 HPV series for age 9-45 Completed 05/18/20 20, 06/02/2019, 01/25/2010 Pneumococcal series for age 6-49 Aged Out No longer eligible based on patient's age to complete this topic Insurance [facility] Care Teams Center Maker Hand Relationship Specialty Start Date End Date Pcp, No . PCP - General 05/16/23
--- NOTE | 2025-04-14 16:57 | ED.GENADULT ---
HPI - General Adult General Chief complaint: Hypertension Stated complaint: high BP Time Seen by Provider: 04/14/25 16:57 History of Present Illness HPI narrative: pt gave 04/08. on bp meds. today bp 163/105, 15 minutes later 173/. has headache and RUQ pain. 34-year-old woman presenting to the emergency department with concern elevated blood pressure now 5 days . Sounds like uneventful other than blood pressures that crept up over the course of the . Was noted to have some borderline hypertension; never medicated before . Got up to 130s over 90 wonder so for the end of her . Was discharged with labetalol which she has continued to take. Last night measure a blood pressure of 105 over 101 and blood pressure has continued elevated this morning. She has light headache. Some right upper abdominal pain is new now as well. Continues to have lightening lochia. No fever. No new shortness of breath. Related Data Home Medications ?Medication ?Instructions ?Recorded ?Confirmed ibuprofen 600 mg tablet 600 mg PO Q6H PRN 04/14/25 04/14/25 labetalol 200 mg tablet 200 mg PO 3XD 04/14/25 04/14/25 Allergies Allergy/AdvReac Type Severity Reaction Status Date / Time No Known Drug Allergies Allergy Verified 04/14/25 16:46 Review of Systems Status of ROS: Reports: 6 or more systems reviewed and unremarkable except as noted in History and below [facility] Social History What is your current living situation?: I presently have a place to live Problems where you live: no known problems Problems where you live details: n/a In the past 12 months, utilities in danger of being shut off: no In past 12 months, lack of transportation kept you from medical appts, meetings, work, or getting things needed for daily living: no In the past 12 mos, have been you worried that your food would run out before you had money to buy more?: never true In the past 12 mos, the food you bought just didn't last and you didn't have money to buy more?: never true Highest level of school completed/degree received: Bachelor's degree Smoking Status: Never smoker Do you use any of these nicotine containing products: None Second hand tobacco smoke exposure: No How often do you have a drink containing alcohol: monthly or less AUDIT-C Alcohol total score: 1 Non-prescribed substance use: denies use Caffeine: Yes How often does anyone, including family, friends and others, physically hurt you: never How often does anyone, including family, friends and others, insult or talk down to you: never How often does anyone, including family, friends and others, threaten you with harm: never How often does anyone, including family, friends and others, scream or curse at you: never service: No Exam Narrative: Exam Narrative: Pleasant. NAD. Does appear tired. Cranial nerves 2-12 are intact. Moving all extremities without difficulty. No lower extremity edema. She has 1+ patellar DTRs and 2 beat clonus. Abdomen is appropriately post gravid. She does have some [id number] right upper quadrant area tenderness. Lungs are clear. Heart in regular rate and rhythm without murmur rub or gallop. Const: Vital Signs, click to edit/add: Vital Signs - 24 hr 04/14/25 16:43 04/14/25 16:58 04/14/25 16:59 Temperature 98.1 F Pulse Rate 69 69 Pulse Rate [Pulse Oximeter] 63 Respiratory Rate 18 Blood Pressure 172/109 H Blood Pressure [Ri ght Upper Arm] 165/102 H Pulse Oximetry 96 96 96 Oxygen Delivery Me thod Room Air 04/14/25 17:00 04/14/25 17:02 04/14/25 17:15 Temperature Pulse Rate 69 67 68 Pulse Rate [Pulse Oximeter] Respiratory Rate Blood Pressure 170/110 H Blood Pressure [Ri ght Upper Arm] Pulse Oximetry 97 97 96 Oxygen Delivery Me thod 04/14/25 17:26 04/14/25 17:31 04/14/25 17:34 Temperature Pulse Rate Pulse Rate [Pulse Oximeter] Respiratory Rate Blood Pressure 162/107 H 163/106 H 161/104 H Blood Pressure [Ri ght Upper Arm] Pulse Oximetry Oxygen Delivery Me thod 04/14/25 17:35 04/14/25 17:36 04/14/25 17:38 Temperature Pulse Rate 68 67 66 Pulse Rate [Pulse Oximeter] Respiratory Rate Blood Pressure 161/102 H 156/104 H Blood Pressure [Ri ght Upper Arm] Pulse Oximetry 97 97 97 Oxygen Delivery Me thod 04/14/25 17:39 04/14/25 17:41 04/14/25 17:44 Temperature Pulse Rate 68 67 69 Pulse Rate [Pulse Oximeter] Respiratory Rate Blood Pressure 152/105 H 157/118 H 154/102 H Blood Pressure [Ri ght Upper Arm] Pulse Oximetry 96 96 96 Oxygen Delivery Me thod 04/14/25 17:45 04/14/25 17:46 04/14/25 17:47 Temperature Pulse Rate 69 69 70 Pulse Rate [Pulse Oximeter] Respiratory Rate Blood Pressure 150/100 H 148/101 H Blood Pressure [Ri ght Upper Arm] Pulse Oximetry 96 96 95 Oxygen Delivery Me thod 04/14/25 17:49 04/14/25 17:51 04/14/25 17:53 Temperature Pulse Rate 71 79 70 Pulse Rate [Pulse Oximeter] Respiratory Rate Blood Pressure 148/102 H 158/101 H 145/92 H Blood Pressure [Ri ght Upper Arm] Pulse Oximetry 95 94 95 Oxygen Delivery Me thod Documenting provider has reviewed patient's vital signs: yes Course Vital Signs Vital signs: Initial Vital Signs Temperature 98.1 F 04/14/25 16:43 Temperature Source Temporal Artery Scan 04/14/25 16:43 Pulse Rate 63 04/14/25 16:43 Respiratory Rate 18 04/14/25 16:43 Blood Pressure 165/102 H 04/14/25 16:43 Blood Pressure Mean 123 H 04/14/25 16:43 Blood Pressure Position Sitting 04/14/25 16:43 Pulse Oximetry 96 04/14/25 16:43 Oxygen Delivery Method Room Air 04/14/25 16:43 Vital Signs Temperature 98.1 F 04/14/25 16:43 Pulse Rate 63 04/14/25 16:43 Respiratory Rate 18 04/14/25 16:43 Blood Pressure 165/102 H 04/14/25 16:43 Pulse Oximetry 96 04/14/25 16:43 Oxygen Delivery Method Room Air 04/14/25 16:43 Temperature 97.8 F 04/16/25 08:53 Pulse Rate 86 04/16/25 08:53 Respiratory Rate 16 04/16/25 08:53 Blood Pressure 128/86 04/16/25 08:53 Pulse Oximetry 98 04/16/25 08:53 Oxygen Delivery Method Room Air 04/16/25 08:53 Medications Administered Medications: Generic Name Dose Route Start Last Admin Trade Name Juliann PRN Reason Stop Dose Admin Acetaminophen 1,000 mg 04/14/25 19:50 04/15/25 04:55 Acetaminophen 500 Mg Tablet PO 1,000 mg Q6H PRN Administration Docusate Sodium 100 mg 04/14/25 19:50 04/15/25 20:34 Docusate Sodium 100 Mg Capsule PO 100 mg BID PRN Administration Magnesium Sulfate 40 gm in 1,000 mls @ 50 mls/hr 04/14/25 17:30 04/15/25 17:38 Magnesium Infusion IVPB 0 gm/hr .Q20H KEDAR 0 mls/hr 2 GM/HR Infusion Ibuprofen 600 mg 04/14/25 19:50 04/15/25 02:15 Ibuprofen 600 Mg Tablet PO 600 mg Q6H PRN Administration Labetalol HCl 300 mg 04/15/25 21:00 04/16/25 04:56 Labetalol Hcl 100 Mg Tablet PO 300 mg KEDAR Administration Discontinued Medications Generic Name Dose Route Start Last Admin Trade Name Juliann PRN Reason Stop Dose Admin Magnesium Sulfate 4 gm in 100 mls @ 25 mls/hr 04/14/25 17:18 04/14/25 19:21 Magnesium Iv IVPB 04/14/25 21:17 Not Given ONCE ONE Magnesium Sulfate 4 gm in 100 mls @ 200 mls/hr 04/14/25 17:24 04/14/25 18:21 Magnesium Iv IVPB 04/14/25 17:53 Infused ONCE ONE Infusion Lactated Ringer's 1,000 mls @ 75 mls/hr 04/14/25 17:25 04/15/25 19:31 Lactated Ringers 1000 Ml IV Infused .[id number] KEDAR Infusion Labetalol HCl 20 mg 04/14/25 17:17 04/14/25 17:25 Labetalol Hcl 5 Mg/Ml Inj IVP 04/14/25 17:18 20 mg ONCE ONE Administration Labetalol HCl 200 mg 04/14/25 19:13 04/14/25 19:49 Labetalol Hcl 100 Mg Tablet PO 04/14/25 19:14 200 mg ONCE ONE Administration Labetalol HCl 200 mg 04/15/25 05:00 04/16/25 09:47 Labetalol Hcl 100 Mg Tablet PO Not Given KEDAR Labetalol HCl 200 mg 04/15/25 13:00 04/15/25 13:13 Labetalol Hcl 100 Mg Tablet PO 200 mg , [facility] Administration Labetalol HCl 100 mg 04/15/25 15:33 04/15/25 15:55 Labetalol Hcl 100 Mg Tablet PO 04/15/25 15:34 100 mg ONCE ONE Administration Nifedipine 30 mg 04/14/25 22:00 04/14/25 22:43 Nifedipine Er 30 Mg Tab PO 30 mg BID KEDAR Administration Nifedipine 30 mg 04/15/25 18:00 04/15/25 18:23 Nifedipine Er 30 Mg Tab PO 30 mg DAILY KEDAR Administration Medical Decision Making MDM Narrative Medical decision making narrative: I would anticipate admission for elevating blood pressure is, possible HELLP syndrome, preeclampsia I did contact OBGYN on-call. Would accept admission pending labs and response to IV labetalol. Will also initiate magnesium drip Blood pressure responded to 20 mg of IV labetalol into the 140s over 90s but then rebounded to 150+/100. Goal less than 160 systolic initially. Labs are overall reassuring. Minimal elevation in ALT Anticipate labetalol drip. Admitted to OB. Medical Records Medical records reviewed: Yes I reviewed the patient's medical records Lab Data Lab results reviewed: Yes I reviewed the patient's lab results Labs: Lab Results 04/14/25 Range/Units 17:21 WBC 11.72 H (4.50-11.00) K/uL RBC 3.93 L (4.00-5.20) m/uL Hgb 11.3 L (12.0-16.0) gm/dL Hct 34.2 (33.0-51.0) % MCV 87 (80-100) fL MCH 29 (26-34) pg MCHC 33 (32-36) gm/dL RDW Coeff of Lita 13.8 (11.5-15.5) % Plt Count 276 (140-440) K/uL Neut % (Auto) 68.8 (42.0-72.0) % Lymph % (Auto) 19.6 L (20-44) % [place] % (Auto) 7.8 (0.0-11.0) % Eos % (Auto) 2.5 (0.0-7.0) % Baso % (Auto) 0.4 (0.0-3.0) % Neut # (Auto) 8.10 H (1.7-7.0) K/uL Lymph # (Auto) 2.30 (0.90-2.90) K/uL [place] # (Auto) 0.90 (0.00-0.90) K/UL Eos # (Auto) 0.30 (0.00-0.50) K/uL Baso # (Auto) 0.00 (0.00-0.30) K/uL Abs Immat Gran (auto) 0.10 (0.00-0.30) K/uL Imm/Tot Granulo (auto) 0.9 % INR 0.96 (0.91-1.10) APTT 26 (23-33) Seconds Sodium 135 (135-149) mmol/L Potassium 3.8 (3.6-5.1) mmol/L Chloride 103 (96-114) mmol/L Carbon Dioxide 21 (20-32) mmol/L Anion Gap 11 (7-15) mEq/L BUN 16 (5-24) mg/dL Creatinine 0.8 (0.5-1.5) mg/dL Estimated GFR 100 ml/min Glucose 96 (60-115) mg/dL Uric Acid 3.2 (2.2-8.4) mg/dL Calcium 9.2 (8.4-10.6) mg/dL Total Bilirubin 0.2 (0.1-1.5) mg/dL Direct Bilirubin 0.2 (0.0-0.5) mg/dL AST 29 (12-35) U/L ALT 39 H (4-35) U/L Alkaline Phosphatase 93 (40-150) U/L Lactate Dehydrogenase 249 H (120-246) U/L Total Protein 6.8 (6.0-8.3) g/dL Albumin 3.8 (3.3-5.0) g/dL Urine Color Yellow (Yellow) Urine Appearance Slightly Cloudy A (Clear) Urine pH 6.0 (5.0-8.5) Ur Specific [place] 1.015 (1.000-1.030) Urine Protein Negative (Negative) Urine Glucose (UA) Negative (Negative) Urine Ketones Negative (Negative) Urine Blood 3+ A (Negative) Urine Nitrite Negative (Negative) Urine Bilirubin Negative (Negative) Urine Urobilinogen 0.2 (0.2-1.0) Ur Leukocyte Esterase 2+ A (Negative) Urine RBC 10-25 A (0-2) Urine WBC 5-10 A (0-5) Ur Squamous Epith Cells None (None-Few) Urine Bacteria Few A (None) Urine Yeast Few A (None) Critical Care Time Critical Care Time Critical Care Time: Yes Attestation: The patient required my highest level preparedness to intervene emergently and I personally spent this critical care time directly and personally managing the patient. This critical care time included: Obtaining a history; Examining the patient; Pulse oximetry; Ordering and reviewing of studies; Arranging urgent treatment with development of a management plan; Evaluation of patients response to treatment; Frequent reassessment discussions with other providers. This critical care time was performed to assess and manage the high probability of imminent life-threatening deterioration that could result in multiorgan failure. It was exclusive of separate billable procedures and treating other patients and teaching time. Total Critical Care Time in Minutes: 50 Discharge Plan Discharge Clinical Impression: Pre-eclampsia Patient Disposition: Admitted As Inpatient Condition: Stable
[2025-04-14] MEDS: LABETALOL HCL 5 MG/ML inj 20 MG IVP (17:25)
[2025-04-14] MEDS: LACTATED RINGERS 1000 ML 1,000 ML 75 ML IV (17:37)
[2025-04-14] MEDS: MAGNESIUM IV 4 GM/100 ML PIGGYBACK IVPB (17:38)
[2025-04-14 17:44] LABS: Hematocrit* 34.2 % (33.0-51.0); Hemoglobin* 11.3 gm/dL (12.0-16.0); Immature Granulocytes Pct Auto 0.9 %; Lymphocytes Absolute Auto 2.30 K/uL (0.90-2.90); Mean Corpuscular HGB Conc 33 gm/dL (32-36); Mean Corpuscular Hemoglobin 29 pg (26-34); Mean Corpuscular Volume 87 fL (80-100); RDW Coefficient of Variation % 13.8 % (11.5-15.5); Red Blood Count* 3.93 m/uL (4.00-5.20); White Blood Count* 11.72 K/uL (4.50-11.00)
[2025-04-14 17:46] LABS: Immature Granulocytes Abs Auto 0.10 K/uL (0.00-0.30); Slide Review Reflex No
[2025-04-14 17:56] LABS: Albumin* 3.8 g/dL (3.3-5.0)
[2025-04-14 17:57] LABS: Chloride* 103 mmol/L (96-114); Potassium* 3.8 mmol/L (3.6-5.1); Sodium* 135 mmol/L (135-149)
[2025-04-14 17:58] LABS: INR 0.96 (0.91-1.10); Prothrombin Time 13.5 Seconds
[2025-04-14 17:59] LABS: Anion Gap 11 mEq/L (7-15); Blood Urea Nitrogen* 16 mg/dL (5-24); Carbon Dioxide* 21 mmol/L (20-32); Creatinine* 0.8 mg/dL (0.5-1.5); Estimated Glomerular Filt Rate 100 ml/min
[2025-04-14 18:00] LABS: Alanine Aminotransferase* 39 U/L (4-35); Alkaline Phosphatase* 93 U/L (40-150); Aspartate Amino Transferase* 29 U/L (12-35); Bilirubin Direct* 0.2 mg/dL (0.0-0.5); Bilirubin Total* 0.2 mg/dL (0.1-1.5); Calcium* 9.2 mg/dL (8.4-10.6); Glucose* 96 mg/dL (60-115); Total Protein* 6.8 g/dL (6.0-8.3)
[2025-04-14 18:01] LABS: Appearance Urine Slightly Cloudy (Clear)
[2025-04-14] MEDS: MAGNESIUM Infusion 40 GM/1,000 ML IV.SOLN IVPB (18:20)
[2025-04-14] MEDS: LABETALOL HCL 100 MG TABLET 200 MG PO (19:49)
--- NOTE | 2025-04-14 20:37 | P.GYNHP_ITS ---
[employer] P[employer] L[employer]ER - H&P:HPI Medical History of Present Illness Date Seen: 04/14/25 Narrative: Dianne Mcintyre is a 34 year old female s/p on Sunday 04/08. Today is PPD#6. She delivered a [facility] and I do not have records for review. She just filled out an [facility] form. Patient appears to be a good historian. Reports diagnosis of CHTN that required medical management towards the end of . She was prescribed labetalol 200 mg TID and was induced shortly after that at 38 weeks. Delivery was uncomplicated. Had 2nd degree laceration. She was discharged with labetalol 200 mg TID and instruction to take her BP. Today she called [facility] with increasing blood pressure and with some in the 160-170s/90-110s. Also had RUQ pain. She was told to go to her closest ED. Presented to our ED with severe ranging blood pressure that was treated with IV labetalol. Denies any persistent headache, vision changes, SOB, or rapidly expanding edema. Her parents are watching her daughter for the night. She is and pumping. Meds Home Medications and Allergies Home Medications ?Medication ?Instructions ?Recorded ?Confirmed ?Type ibuprofen 600 mg tablet 600 mg PO Q6H PRN 04/14/25 1 History labetalol 200 mg tablet 200 mg PO 3XD 04/14/2504/14 History Allergies Allergy/AdvReac Type Severity Reaction Status Date / Time No Known Drug Allergies Allergy Verified 04/14/25 16:46 PFSH Active Problems (Updated 04/14/25 @ 22:00 by Hawa Fields MD) Pre-eclampsia added to pre-existing hypertension (Acute) ?O11.9 - Pre-existing hypertension with pre-eclampsia, unspecified trimester (ICD-10) Pre-eclampsia (Acute) ?O14.90 - Unspecified pre-eclampsia, unspecified trimester (ICD-10) Social History What is your current living situation?: I presently have a place to live Problems where you live: no known problems Problems where you live details: n/a In the past 12 months, utilities in danger of being shut off: no In past 12 months, lack of transportation kept you from medical appts, meetings, work, or getting things needed for daily living: no In the past 12 mos, have been you worried that your food would run out before you had money to buy more?: never true In the past 12 mos, the food you bought just didn't last and you didn't have money to buy more?: never true Highest level of school completed/degree received: Bachelor's degree Smoking Status: Never smoker Do you use any of these nicotine containing products: None Second hand tobacco smoke exposure: No How often do you have a drink containing alcohol: monthly or less AUDIT-C Alcohol total score: 1 Non-prescribed substance use: denies use Caffeine: Yes How often does anyone, including family, friends and others, physically hurt you : never How often does anyone, including family, friends and others, insult or talk down to you: never How often does anyone, including family, friends and others, threaten you with harm: never How often does anyone, including family, friends and others, scream or curse at you: never service: 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 Fundus firm 3 cm below umbilicus. 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 - Results Labs Labs: Short CBC 04/14/25 Range/Units 17:21 WBC 11.72 H (4.50-11.00) K/uL Hgb 11.3 L (12.0-16.0) gm/dL Hct 34.2 (33.0-51.0) % Plt Count 276 (140-440) K/uL BMP 04/14/25 17:21 Sodium 135 Potassium 3.8 Chloride 103 Carbon Dioxide 21 BUN 16 Creatinine 0.8 Glucose 96 Calcium 9.2 Liver Function 04/14/25 Range/Units 17:21 Total Bilirubin 0.2 (0.1-1.5) mg/dL Direct Bilirubin 0.2 (0.0-0.5) mg/dL AST 29 (12-35) U/L ALT 39 H (4-35) U/L Alkaline Phosphatase 93 (40-150) U/L Albumin 3.8 (3.3-5.0) g/dL Urine 04/14/25 Range/Units 17:21 Urine Color Yellow (Yellow) Urine Appearance Slightly Cloudy A (Clear) Urine pH 6.0 (5.0-8.5) Ur Specific [place] 1.015 (1.000-1.030) Urine Protein Negative (Negative) Urine Glucose (UA) Negative (Negative) Assessment and Plan Assessment and plan (1) Pre-eclampsia added to pre-existing hypertension: Status: Acute Plan Superimposed preeclampsia with severe features - Based on severe ranging blood pressures requiring IV antihypertensive - BPs 130-170s/90-110s - Symptoms: RUQ pain - Magnesium: currently on magnesium sulfate for seizure prophylaxis. Will continue for 24 hours - IV antihypertensives:s/p 20 mg of labetalol at 1725 - PO antihypertensives: Labetalol 200 mg TID and Nifedipine XL 30 mg BID - Pre-eclampsia labs on 04/14 @ 1715: Plt 276 Cr 0.8 ALT 39 AST 29 LDH 249 - Q6H pre-eclampsia labs - Juliocesar I/O - UOP: 1.35 cc/kg/hr
[2025-04-14] MEDS: ACETAMINOPHEN 500 MG TABLET 1000 MG PO (21:01)
[2025-04-14] MEDS: DOCUSATE SODIUM 100 MG CAPSULE PO (21:01)
[2025-04-14 23:29] LABS: Hematocrit* 33.9 % (33.0-51.0); Hemoglobin* 11.2 gm/dL (12.0-16.0); Mean Corpuscular HGB Conc 33 gm/dL (32-36); Mean Corpuscular Hemoglobin 29 pg (26-34); Mean Corpuscular Volume 88 fL (80-100); Red Blood Count* 3.87 m/uL (4.00-5.20); White Blood Count* 11.10 K/uL (4.50-11.00)
[2025-04-14 23:32] LABS: Slide Review Reflex No
[2025-04-14 23:41] LABS: Alanine Aminotransferase* 36 U/L (4-35); Aspartate Amino Transferase* 29 U/L (12-35); Blood Urea Nitrogen* 16 mg/dL (5-24); Creatinine* 0.8 mg/dL (0.5-1.5); Est. Creatinine Clearance* 87.18; Estimated Glomerular Filt Rate 100 ml/min
[2025-04-15] VITALS (15 sets, daily range): BP systolic 104–144; BP diastolic 71–106; PULSE 66–98; RESP 16–20; TEMP 36–36.7; O2SAT 95–98
[2025-04-15] MEDS: IBUPROFEN 600 MG TABLET PO (02:15)
[2025-04-15] MEDS: LABETALOL HCL 100 MG TABLET 200 MG PO ×2 (04:53→13:13)
[2025-04-15] MEDS: ACETAMINOPHEN 500 MG TABLET 1000 MG PO (04:55)
[2025-04-15] MEDS: LACTATED RINGERS 1000 ML 1,000 ML 75 ML IV (04:59)
[2025-04-15 05:29] LABS: Hematocrit* 35.9 % (33.0-51.0); Hemoglobin* 11.9 gm/dL (12.0-16.0); Mean Corpuscular HGB Conc 33 gm/dL (32-36); Mean Corpuscular Hemoglobin 29 pg (26-34); Mean Corpuscular Volume 87 fL (80-100); Red Blood Count* 4.11 m/uL (4.00-5.20); White Blood Count* 10.40 K/uL (4.50-11.00)
[2025-04-15 05:37] LABS: Slide Review Reflex No
[2025-04-15 05:46] LABS: Alanine Aminotransferase* 37 U/L (4-35); Aspartate Amino Transferase* 29 U/L (12-35); Blood Urea Nitrogen* 14 mg/dL (5-24); Creatinine* 0.7 mg/dL (0.5-1.5); Est. Creatinine Clearance* 99.63; Estimated Glomerular Filt Rate 118 ml/min
--- NOTE | 2025-04-15 09:04 | P.OBPN_ITS ---
OB - PN:Subj Subjective Time Seen by Provider: 07:15 Date Seen: 04/15/25 Narrative: Dianne Chopra is a 34yo seen on PPD7 after readmission for superimposed preE with severe features (severe BPs requiring treatment). Please see Dr. Fields's admission note for details. Outside records are still unavailable, requested these again this morning. Overnight, patient has been maintained on magnesium sulfate for seizure prophylaxis. She notes feeling woozy on this, and has had headaches. She notes her headache is actually the best it has felt since admission this morning, rated as 2/10 in severity. She has not noted much improvement with ibuprofen or Tylenol. Denies vision changes or right upper quadrant pain. Her blood pressures have been normotensive overnight, on a regimen of labetalol 200 mg t.i.d. and nifedipine 30 mg XL b.i.d.. BP regimen was decreased, as she became normotensive after a single dose of the nifedipine and thus I elected to continue this as a once daily dose at bedtime for now. Interval preeclampsia labs are stable, platelets of 293, creatinine 0.7, AST 29, ALT of 37, mag level 5.9 this morning. Plan to continue q.6h HELLP labs and magnesium sulfate for a total of 24 hours - until about 1730 this evening. Patient denies any other acute concerns such as heavy bleeding, nausea/vomiting, bowel or bladder concerns. Robust urine output noted, 2000mL in the last 8 hours. OB - PN: Obj Exam Physical Exam: Vital signs: Temp Pulse Resp BP Pulse Ox O2 Del Method 96.8 F L 98 16 109/72 98 Room Air 04/15/25 06:00 04/15/25 06:00 04/15/25 06:00 04/15/25 06:00 04/15/25 06:00 04/15/25 06:00 Narrative: Physical exam: General: No acute distress Psych: Alert and oriented x3, full affect Heart: Regular rate and rhythm, no murmur rub or gallop Lungs: Clear to auscultation bilaterally Abdomen: Soft, nondistended and nontender to palpation throughout. Fundus palpates 3 below umbilicus and firm. Extremities: No significant lower extremity edema. No calf erythema/t enderness. OB - PN: Obj Data Labs Labs: Laboratory Results - last 24 hr 04/14/25 04/14/2504/15/25 17:21 23:10 04:50 WBC 11.72 H 11.10 H 10.40 RBC 3.93 L 3.87 L 4.11 Hgb 11.3 L 11.2 L 11.9 L Hct 34.2 33.9 35.9 MCV 87 88 87 MCH 29 29 29 MCHC 33 33 33 RDW Coeff of Lita 13.8 Plt Count 276 299 293 Neut % (Auto) 68.8 Lymph % (Auto) 19.6 L [place] % (Auto) 7.8 Eos % (Auto) 2.5 Baso % (Auto) 0.4 Neut # (Auto) 8.10 H Lymph # (Auto) 2.30 [place] # (Auto) 0.90 Eos # (Auto) 0.30 Baso # (Auto) 0.00 Abs Immat Gran (auto) 0.10 Imm/Tot Granulo (auto) 0.9 INR 0.96 APTT 26 Sodium 135 Potassium 3.8 Chloride 103 Carbon Dioxide 21 Anion Gap 11 BUN 16 16 14 Creatinine 0.8 0.8 0.7 Estimated Creat Clear 87.18 99.63 Estimated GFR 100 100 118 Glucose 96 Uric Acid 3.2 Calcium 9.2 Magnesium 5.3 H* 5.9 H* Total Bilirubin 0.2 Direct Bilirubin 0.2 AST 29 29 29 ALT 39 H 36 H 37 H Alkaline Phosphatase 93 Lactate Dehydrogenase 249 H Total Protein 6.8 Albumin 3.8 Urine Color Yellow Urine Appearance Slightly Cloudy A Urine pH 6.0 Ur Specific [place] 1.015 Urine Protein Negative Urine Glucose (UA) Negative Urine Ketones Negative Urine Blood 3+ A Urine Nitrite Negative Urine Bilirubin Negative Urine Urobilinogen 0.2 Ur Leukocyte Esterase 2+ A Urine RBC 10-25 A Urine WBC 5-10 A Ur Squamous Epith Cells None Urine Bacteria Few A Urine Yeast Few A OB - PN: A/P Delivery Assessment and Plan (1) Pre-eclampsia added to pre-existing hypertension: Status: Acute Plan Dianne Chopra is a 34yo seen on PPD7 after readmission for superimposed preE with severe features (severe BPs requiring treatment). Patient has been maintained on magnesium sulfate overnight, q.6h HELLP labs are stable and patient is normotensive on her current antihypertensive regimen. Plan: - Continue magnesium sulfate at 2g/hour for 24 hours, ending at approximately 1730 this evening - Q6H HELLP labs ongoing - last Plt 293, Cr 0.7, AST 29 and ALT 37 this morning - Symptoms: Headache, rated 2/10 at present and declines treatment. No significant improvement with ibuprofen/tylenol per patient. Recommend she notify nurse if persistent/worsening where we can try alternative headache meds. - Strict I/O ongoing, robust diuresis noted - Diligent blood pressure monitoring ongoing, normotensive on below regimen. Plan to treat sustained severe range blood pressures as needed. - BP regimen: Labetolol 200mg TID and nifedipine XL 30mg daily (at 2100) - Otherwise routine care and support - We have once again requested her outside records from [facility], none available at this time. Disposition: Inpatient tonight. Discussed recommendation for monitoring for 24 hours post-magnesium. Patient is hopeful for sooner dismissal if stable. Explained this will depend on her BP control, symptoms and rounding MD tomorrow.
--- NOTE | 2025-04-15 10:31 | W.PC.NUTR.NO ---
Nutrition Progress Note Progress Note Progress Note: RDN with nutrition screen related to woman. Patient admitted for superimposed preE with severe features (severe BPs requiring treatment). She is currently post- day 7. Current weight 73.21 kg; height 162.56 cm; BMI 27.7 kg/m2. Diet order is Regular. Meal intake x2 since admit at 75%. RDN visited with patient whom reports is going well so far. She reports pumping currently due to baby having issues with latching. She has seen a talent development consultant due to this and has an appointment scheduled next week with her. She reports having to give baby formula sometimes. Patient reports appetite is on the lower end. RDN encouraged small, frequent meals and snacks. Provided diet education handouts on nutrition therapy, snacks with staying power, and hypertension nutrition therapy. Patient had no other questions or concerns at this time. Patient verbalized understanding of diet education. RDN's contact information was provided and patient was encouraged to contact RDN with questions.
[2025-04-15 11:03] LABS: Hematocrit* 36.2 % (33.0-51.0); Hemoglobin* 11.8 gm/dL (12.0-16.0); Mean Corpuscular HGB Conc 33 gm/dL (32-36); Mean Corpuscular Hemoglobin 28 pg (26-34); Mean Corpuscular Volume 87 fL (80-100); Red Blood Count* 4.17 m/uL (4.00-5.20); White Blood Count* 10.36 K/uL (4.50-11.00)
[2025-04-15 11:04] LABS: Slide Review Reflex No
[2025-04-15 11:18] LABS: Alanine Aminotransferase* 35 U/L (4-35); Aspartate Amino Transferase* 28 U/L (12-35); Blood Urea Nitrogen* 13 mg/dL (5-24); Creatinine* 0.7 mg/dL (0.5-1.5); Est. Creatinine Clearance* 99.63; Estimated Glomerular Filt Rate 118 ml/min
[2025-04-15] MEDS: MAGNESIUM Infusion 40 GM/1,000 ML IV.SOLN IVPB (13:16)
[2025-04-15] MEDS: LABETALOL HCL 100 MG TABLET PO (15:55)
[2025-04-15 17:17] LABS: Hematocrit* 36.3 % (33.0-51.0); Hemoglobin* 11.9 gm/dL (12.0-16.0); Mean Corpuscular HGB Conc 33 gm/dL (32-36); Mean Corpuscular Hemoglobin 29 pg (26-34); Mean Corpuscular Volume 88 fL (80-100); Red Blood Count* 4.15 m/uL (4.00-5.20); White Blood Count* 10.71 K/uL (4.50-11.00)
[2025-04-15 17:21] LABS: Slide Review Reflex No
[2025-04-15 17:34] LABS: Alanine Aminotransferase* 33 U/L (4-35); Aspartate Amino Transferase* 28 U/L (12-35); Blood Urea Nitrogen* 14 mg/dL (5-24); Creatinine* 0.7 mg/dL (0.5-1.5); Est. Creatinine Clearance* 99.63; Estimated Glomerular Filt Rate 118 ml/min
--- NOTE | 2025-04-15 19:34 | PC.NURSE ---
The patient is pleasant and cooperative during cares. VS monitored throughout the shift via protocol. MD updated accordingly. This afternoon the patients BP levels are noted to increase. Medication doses and times were changed per MD ordered. Large amount of urine produced. The patient reports intermittent RUQ throughout the day and a mild headache this afternoon. Magnesium gtt was stopped at the 24hr ariel today. The patient showered and her appetite is reassuring. Breast milk that is being pumped is labeled and put in the fridge over on OB. Elsy SCOTT BSN
[2025-04-15] MEDS: LABETALOL HCL 100 MG TABLET 300 MG PO (20:23)
[2025-04-15] MEDS: DOCUSATE SODIUM 100 MG CAPSULE PO (20:34)
[2025-04-16] VITALS (12 sets, daily range): BP systolic 112–148; BP diastolic 73–101; PULSE 69–94; RESP 16–20; TEMP 36.5–37.2; O2SAT 95–98
[2025-04-16] MEDS: LABETALOL HCL 100 MG TABLET 300 MG PO ×3 (04:56→19:19)
--- NOTE | 2025-04-16 05:05 | PC.NURSE ---
Addendum entered by Vonnie Foster RN 04/16/25 06:51: RN completed preeclampsia assessment approx 0645, Pt states headache is coming in and out feels it mainly when shes laying down, 1/10 pain. Original Note: [id number] Pt Slept well during night, Systolic BP <145 throughout shift, diastolic BP <100. Headache and RUQ pain present, rating 1-2/10 pain at beginning of shift and gone by 0300 assessment. voiding adequate amount of urine, ambulating without difficulty. States she still feels woozy but this is also getting better. denies feeling light headed or dizzy.
--- NOTE | 2025-04-16 10:00 | PM.OBPNVD1 ---
OB - PN:Subj Subjective Date Seen: 04/16/25 Interval history: Dianne is a 34-year-old G1 now P1 woman who is status post normal spontaneous vaginal delivery at [facility] on 04/08/2025. She is currently day 8. She presented to the ER at facility on 04/14/2025 with severely elevated blood pressures. She reported she had a diagnosis of chronic hypertension requiring medical management toward the end of . She was prescribed labetalol 200 mg t.i.d. and was induced shortly after that at 38 weeks gestation. She reported uncomplicated spontaneous vaginal delivery with second-degree laceration. She was discharged on labetalol 200 mg t.i.d.. She called [facility] with report of severe range blood pressures on 04/14/2025 in complaint of right upper quadrant pain. Reported blood pressures ranged from 160-170 systolic, 90s to 110s diastolic. She was told to go to the closest ER, and thus presented here. She was then treated with IV labetalol for severe range blood pressures. Here, she was treated with 24 hours of magnesium sulfate drip for seizure prophylaxis. Her most recent antihypertensive regimen has included labetalol 300 mg t.i.d. beginning at 9:00 p.m. last night, and nifedipine ER 30 mg daily beginning last night. Magnesium was discontinued at 5:30 p.m. yesterday. Blood pressures have been consistently elevated since discontinuation of magnesium. Her highest was 144/106 at 7:25 p.m. last night. Yesterday, she had a negative fluid balance of 417.5 mL. She had 5550 mL of urine output, but had a significant intake as well. In the last 10 hours, she has had 1000 mL of urine output, for a negative fluid balance of 900 mL. HELLP labs have been normal. She had a transient very mild elevation of ALT at admission, but this has resolved. Narrative: This morning, she reports feeling much better after cessation of magnesium. She denies any continuing headache, visual changes, right upper quadrant pain. Her infant is now 8-day-old and with her mother. OB - PN: Obj Exam Physical Exam: Vital signs: Temp Pulse Resp BP Pulse Ox O2 Del Method 97.8 F 86 16 128/86 98 Room Air 04/16/25 08:53 04/16/25 08:53 04/16/25 08:53 04/16/25 08:53 04/16/25 08:53 04/16/25 08:53 Narrative: Physical exam: Vitals as noted above. General: No acute distress Psych: Alert and oriented x 3, full affect HEENT: Normocephalic, atraumatic Heart: Regular rate rhythm, no murmur or gallop Lungs: Clear to auscultation bilaterally Abdomen: Soft, nontender, fundus well below umbilicus Lower extremities: No edema or erythema OB - PN: Obj Data Labs Labs: Laboratory Results - last 24 hr 04/15/25 04/15/25 10:57 17:11 WBC 10.36 10.71 RBC 4.17 4.15 Hgb 11.8 L 11.9 L Hct 36.2 36.3 MCV 87 88 MCH 28 29 MCHC 33 33 Plt Count 297 329 BUN 13 14 Creatinine 0.7 0.7 Estimated Creat Clear 99.63 99.63 Estimated GFR 118 118 Magnesium 6.1 H* 6.0 H* AST 28 28 ALT 35 33 OB - PN: A/P Delivery Assessment and Plan (1) Pre-eclampsia added to pre-existing hypertension: Status: Acute Assessment and Plan: This morning, after my evaluation, I recommended changing nifedipine ER dose to 30 mg twice a day. An additional dose was given this morning. Since her labetalol dose had just been increased last night to 300 mg t.i.d., I opted to stay at this level. I then re-evaluated the patient at 7:00 p.m.. Unfortunately, her blood pressures have remained elevated throughout the day, generally in the 130s over 90s range, but her most recent was 141 over 101. I would prefer to definitively avoid any blood pressures that will put her at danger of readmission. Given this, we opted to keep her overnight an additional night. I will increase her nifedipine ER to 60 mg twice a day. I am giving her an additional dose of labetalol 300 mg now, and will consider giving her schedule dose at 9:00 p.m. depending what her blood pressures are at that time. My intention is discharge tomorrow provided that she does not require IV antihypertensive treatment, with a goal of keeping her blood pressure is during the remainder of her hospital stay less than 150 systolic, 100 diastolic. Plan day: 8
[2025-04-16] MEDS: SODIUM CHLORIDE 0.9 % (FLUSH) 10 ML SYRINGE 5 ML IVF ×2 (10:17→21:51)
--- NOTE | 2025-04-16 19:23 | PC.NURSE ---
End of shift [id number] - RN took over pt care at approximately 1530. Pt alert, oriented, cooperative. Up independently in room, tolerating RA and regular diet/fluids. Pt denies pain, blurred vision. Pt noted to be hypertensive, MD aware and verbal order given with instruction for follow up. See MAR. engineering test specialist and oncoming RN made aware of MD order. Pt appears to be resting comfortably at end of shift with call light within reach at end of shift.
[2025-04-16] MEDS: DOCUSATE SODIUM 100 MG CAPSULE PO (21:49)
[2025-04-16] MEDS: ACETAMINOPHEN 500 MG TABLET 1000 MG PO (21:49)
[2025-04-17 01:49] VITALS: BP 119/91; PULSE 62; RESP 17; TEMP 36.7; O2SAT 92
[2025-04-17] MEDS: IBUPROFEN 600 MG TABLET PO (01:55)
[2025-04-17 04:55] VITALS: BP 111/81; PULSE 75; RESP 17; TEMP 36.6; O2SAT 97
[2025-04-17] MEDS: LABETALOL HCL 100 MG TABLET 300 MG PO (05:08)
[2025-04-17] MEDS: ACETAMINOPHEN 500 MG TABLET 1000 MG PO (05:09)
[2025-04-17 07:00] VITALS: BP 110/81; PULSE 66; RESP 16; TEMP 36.4; O2SAT 96
--- NOTE | 2025-04-17 07:55 | PC.NURSE ---
Shift note ([id number]): Patient pleasant, alert and oriented. Independent in room. Per MD request Dr Muñoz was called and updated?regarding patient?s VS and status prior to administration of HS medications. Per Dr Muñoz hold HS dose of Labetalol and give scheduled HS Nifedipine. Given PRN Tylenol x2 and PRN Ibuprofen for headache rated 2-5/10. Reports headache is better at this time. ?
[2025-04-17 08:00] VITALS: BP 110/81; PULSE 66; RESP 16; TEMP 36.4; O2SAT 96
--- NOTE | 2025-04-17 08:17 | W.PM.OB.MED ---
DS: Providers Provider Date Seen: 04/17/25 Date of admission: 04/14/25 19:04 Primary care physician: Not a Local Provider Admitting Clinician: Hawa Fields MD Attending Physician on discharge: Hawa Fields MD Date of Discharge: 04/17/25 DS: Diagnosis Discharge Diagnosis (1) Pre-eclampsia added to pre-existing hypertension: Status: Acute Discharge Plan Discharge Disposition: Home, Self-Care Date of Admission: 04/14/25 19:04 Attending Provider on Discharge: Hawa Fields Primary Care Provider: Provider,Not a Local Condition: Stable Anticipated Discharge Date/Time: 04/17/25 13:02 Discharge Medications: New acetaminophen 500 mg Tablet 1,000 mg PO Q6H PRN30 Days Qty: 60 0RF docusate sodium 100 mg Capsule 100 mg PO BID PRNQty: 30 0RF ibuprofen 600 mg Tablet 600 mg PO Q6H PRN30 Days Qty: 60 0RF labetalol 300 mg tablet 300 mg PO 05,13,21 30 Days Qty: 90 0RF nifedipine 30 mg Tablet Extended Release 60 mg PO BID 30 Days Qty: 120 0RF Continued ibuprofen 600 mg tablet 600 mg PO Q6H PRN Discontinued labetalol 200 mg tablet 200 mg PO 3XD Discharge Orders: Discharge Order (Routine); Ordered 04/17/25 Ordered By: Hawa Fields Patient Education: Labetalol (By mouth), Nifedipine (By mouth), Acetaminophen (By mouth), Ibuprofen (By mouth), Laxative, Stool Softeners (By mouth), Preeclampsia and Eclampsia After Delivery (GEN) Follow Up Appointments: Provider,Not a Local [Primary Care Provider, Family Practice] Forms: [employer] Info Instructions Discharge Comments: - Follow up in 5-7 days for follow up visit and blood pressure check with her OB provider - Follow Up: follow-up at 2 weeks and 6 weeks in clinic - Please check blood pressure twice daily at home and bring to follow up appointment Hospital Course Course Hospital Course: Dianne is a 34-year-old G1 now P1 woman who is status post normal spontaneous vaginal delivery at [facility] on 04/08/2025. She is currently day 9. She presented to the ER on 04/14/2025 with severely elevated blood pressures. She reported she had a diagnosis of chronic hypertension requiring medical management toward the end of . She was prescribed labetalol 200 mg t.i.d. and was induced shortly after that at 38 weeks gestation. She reported uncomplicated spontaneous vaginal delivery with second-degree laceration. She was discharged on labetalol 200 mg t.i.d.. She called [facility] with report of severe range blood pressures on 04/14/2025 in complaint of right upper quadrant pain. Reported blood pressures ranged from 160-170s/90-110s. She was told to go to the closest ER, and thus presented here. She was then treated with 20 mg labetalol IV for severe range blood pressures. She is s/p 24 hours of magnesium sulfate drip for seizure prophylaxis. Her antihypertensive medications were titrated throughout her hospital stay. Currently, she's on nifedipine XL 60 mg b.i.d. and labetalol 300 mg t.i.d. This has been sufficient to keep her BP below 150/100. Denies any persistent headache, vision changes, SOB, right upper quadrant/epigastric pain, or rapidly expanding edema. PreE labs normalized since 04/15/25 @ 1700. Labs Labs: Laboratory Tests 04/15/25 04/15/25 04/15/25 Range/Units 17:11 10:57 04:50 WBC 10.71 10.36 10.40 (4.50-11.00) K/uL RBC 4.15 4.17 4.11 (4.00-5.20) m/uL Hgb 11.9 L 11.8 L 11.9 L (12.0-16.0) gm/dL Hct 36.3 36.2 35.9 (33.0-51.0) % MCV 88 87 87 (80-100) fL MCH 29 28 29 (26-34) pg MCHC 33 33 33 (32-36) gm/dL RDW Coeff of Lita (11.5-15.5) % Plt Count 329 297 293 (140-440) K/uL Neut % (Auto) (42.0-72.0) % Lymph % (Auto) (20-44) % [place] % (Auto) (0.0-11.0) % Eos % (Auto) (0.0-7.0) % Baso % (Auto) (0.0-3.0) % Neut # (Auto) (1.7-7.0) K/uL Lymph # (Auto) (0.90-2.90) K/uL [place] # (Auto) (0.00-0.90) K/UL Eos # (Auto) (0.00-0.50) K/uL Baso # (Auto) (0.00-0.30) K/uL Abs Immat Gran (auto) (0.00-0.30) K/uL Imm/Tot Granulo (auto) % INR (0.91-1.10) APTT (23-33) Seconds Sodium (135-149) mmol/L Potassium (3.6-5.1) mmol/L Chloride (96-114) mmol/L Carbon Dioxide (20-32) mmol/L Anion Gap (7-15) mEq/L BUN 14 13 14 (5-24) mg/dL Creatinine 0.7 0.7 0.7 (0.5-1.5) mg/dL Estimated Creat Clear 99.63 99.63 99.63 Estimated GFR 118 118 118 ml/min Glucose (60-115) mg/dL Uric Acid (2.2-8.4) mg/dL Calcium (8.4-10.6) mg/dL Magnesium 6.0 H* 6.1 H* 5.9 H* (1.5-2.6) mg/dL Total Bilirubin (0.1-1.5) mg/dL Direct Bilirubin (0.0-0.5) mg/dL AST 28 28 29 (12-35) U/L ALT 33 35 37 H (4-35) U/L Alkaline Phosphatase (40-150) U/L Lactate Dehydrogenase (120-246) U/L Total Protein (6.0-8.3) g/dL Albumin (3.3-5.0) g/dL Urine Color (Yellow) Urine Appearance (Clear) Urine pH (5.0-8.5) Ur Specific [place] (1.000-1.030) Urine Protein (Negative) Urine Glucose (UA) (Negative) Urine Ketones (Negative) Urine Blood (Negative) Urine Nitrite (Negative) Urine Bilirubin (Negative) Urine Urobilinogen (0.2-1.0) Ur Leukocyte Esterase (Negative) Urine RBC (0-2) Urine WBC (0-5) Ur Squamous Epith Cells (None-Few) Urine Bacteria (None) Urine Yeast (None) 04/14/25 04/14/25 Range/Units 23:10 17:21 WBC 11.10 H 11.72 H (4.50-11.00) K/uL RBC 3.87 L 3.93 L (4.00-5.20) m/uL Hgb 11.2 L 11.3 L (12.0-16.0) gm/dL Hct 33.9 34.2 (33.0-51.0) % MCV 88 87 (80-100) fL MCH 29 29 (26-34) pg MCHC 33 33 (32-36) gm/dL RDW Coeff of Lita 13.8 (11.5-15.5) % Plt Count 299 276 (140-440) K/uL Neut % (Auto) 68.8 (42.0-72.0) % Lymph % (Auto) 19.6 L (20-44) % [place] % (Auto) 7.8 (0.0-11.0) % Eos % (Auto) 2.5 (0.0-7.0) % Baso % (Auto) 0.4 (0.0-3.0) % Neut # (Auto) 8.10 H (1.7-7.0) K/uL Lymph # (Auto) 2.30 (0.90-2.90) K/uL [place] # (Auto) 0.90 (0.00-0.90) K/UL Eos # (Auto) 0.30 (0.00-0.50) K/uL Baso # (Auto) 0.00 (0.00-0.30) K/uL Abs Immat Gran (auto) 0.10 (0.00-0.30) K/uL Imm/Tot Granulo (auto) 0.9 % INR 0.96 (0.91-1.10) APTT 26 (23-33) Seconds Sodium 135 (135-149) mmol/L Potassium 3.8 (3.6-5.1) mmol/L Chloride 103 (96-114) mmol/L Carbon Dioxide 21 (20-32) mmol/L Anion Gap 11 (7-15) mEq/L BUN 16 16 (5-24) mg/dL Creatinine 0.8 0.8 (0.5-1.5) mg/dL Estimated Creat Clear 87.18 Estimated GFR 100 100 ml/min Glucose 96 (60-115) mg/dL Uric Acid 3.2 (2.2-8.4) mg/dL Calcium 9.2 (8.4-10.6) mg/dL Magnesium 5.3 H* (1.5-2.6) mg/dL Total Bilirubin 0.2 (0.1-1.5) mg/dL Direct Bilirubin 0.2 (0.0-0.5) mg/dL AST 29 29 (12-35) U/L ALT 36 H 39 H (4-35) U/L Alkaline Phosphatase 93 (40-150) U/L Lactate Dehydrogenase 249 H (120-246) U/L Total Protein 6.8 (6.0-8.3) g/dL Albumin 3.8 (3.3-5.0) g/dL Urine Color Yellow (Yellow) Urine Appearance Slightly Cloudy A (Clear) Urine pH 6.0 (5.0-8.5) Ur Specific [place] 1.015 (1.000-1.030) Urine Protein Negative (Negative) Urine Glucose (UA) Negative (Negative) Urine Ketones Negative (Negative) Urine Blood 3+ A (Negative) Urine Nitrite Negative (Negative) Urine Bilirubin Negative (Negative) Urine Urobilinogen 0.2 (0.2-1.0) Ur Leukocyte Esterase 2+ A (Negative) Urine RBC 10-25 A (0-2) Urine WBC 5-10 A (0-5) Ur Squamous Epith Cells None (None-Few) Urine Bacteria Few A (None) Urine Yeast Few A (None) OB Problem List Additional Plan (1) Pre-eclampsia added to pre-existing hypertension: Status: Acute DS: Summary Vital Signs Vital Signs: Vital Signs Temp Pulse Resp BP Pulse Ox O2 Del Method 04/17/25 04:55 97.9 F 75 17 111/81 97 Room Air 04/17/25 04:55 97.9 F 04/17/25 01:49 98.0 F 62 17 119/91 H 92 Room Air 04/16/25 23:48 98.9 F 86 20 112/73 96 Room Air 04/16/25 21:18 98.2 F 75 17 134/92 H 97 Room Air 04/16/25 20:10 99.0 F 86 17 132/99 H 97 Room Air 04/16/25 17:14 97.9 F 72 20 148/101 H 96 Room Air 04/16/25 16:30 97.7 F 71 16 137/93 H 96 Room Air 04/16/25 15:54 97.7 F 71 16 137/93 H 96 Room Air 04/16/25 12:57 98.2 F 74 16 137/95 H 95 Room Air 04/16/25 12:06 98.0 F 69 16 138/92 H 97 Room Air 04/16/25 11:17 98.0 F 69 16 138/92 H 97 Room Air 04/16/25 08:53 97.8 F 86 16 128/86 98 Room Air Discharge Examination Physical Examination findings: Physical exam: General: No acute distress Psych: Alert and oriented x4, full affect HEENT: Normocephalic, atraumatic Heart: Regular rate and rhythm, no murmur rub or gallop Lungs: Clear to auscultation bilaterally Abdomen: Soft, no tenderness, rebound, or guarding. Skin: No lesions or rashes Lower extremities: Trace bilateral lower extremity edema Pelvic exam: Deferred. Patient reports minimal bleeding
[2025-04-17 11:00] VITALS: BP 137/90; PULSE 63; RESP 18; TEMP 36.3; O2SAT 94
[2025-04-17 12:26] VITALS: BP 125/93; PULSE 66; RESP 18
== END 2025-04-17 14:00 | disposition home or self-care (01) | DRG 561 ==
LOC: ED 17:18 → MEDSURG 18:50
PROVIDERS: Admitting Provider Obstetrics & Gynecology; Emergency Provider Family Medicine; Visit Provider Obstetrics & Gynecology
DX: O14.15 Severe pre-eclampsia, complicating the puerperium (principal); O10.93 Unspecified pre-existing hypertension complicating the puerperium
CPT/HCPCS: 36415; 80048; 80076; 81001; 82565; 83615; 83735; 84450; 84460; 84520; 84550; 85025; 85027; 85610; 85730; 87086; 99284; 99291; A9270; J3475; J7120